=== PATIENT | female | born 1990 | race Caucasian/White ===

== ENCOUNTER 2023-07-09 19:13 | Emergency (ER) | payer BC, SELFPAY ==
[2023-07-09] VITALS (32 sets, daily range): BP systolic 117–144; BP diastolic 63–87; PULSE 53–75; RESP 6–42; TEMP 36.6; O2SAT 97–100; BMI 32.6
--- NOTE | 2023-07-09 18:30 | ECG_ITS ---
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
--- NOTE | 2023-07-09 19:35 | PC.NURSE ---
pt presents to ED because pt states that this morning she woke up with a headache which pt has a history of but she is not prescribed any medications for it. pt states that she has hx of anemia and heart palpitations. pt states that an hour [employer] she started experiencing sob, dizziness, left sided chest pain that radiates into left shoulder.
--- NOTE | 2023-07-09 19:36 | ED.CHESTPAI1 ---
HPI - Chest Pain General Chief Complaint: Chest Pain Stated Complaint: CHEST PAIN, HEADACHE Time Seen by Provider: 07/09/23 19:25 Source: patient Mode of arrival: walk-in History of Present Illness HPI narrative: presents complaining of headache. left posterior head. Similar headaches in the past. also left sided chest pain in the last hour. states comes and goes. May last 2 minutes and then resolve. No pain now. Does have past history of GERD. Use to take medication for GERD but hasn't for years. No associated dyspnea or nausea. Pain is not pleuritic. No fever or cough. No family history of heart disease. Related Data Allergies Allergy/AdvReac Type Severity Reaction Status Date / Time No Known Drug Allergies Allergy Verified 07/09/23 19:17 Review of Systems ROS Status of ROS 10 or more systems reviewed and unremarkable except as noted in history and below Exam Constitutional Vital Signs, click to edit/add: Last Vital Signs Temp 97.8 F 07/09/23 19:17 Pulse 60 07/09/23 22:40 Resp 15 07/09/23 22:40 BP 128/66 07/09/23 22:31 Pulse Ox 99 07/09/23 22:40 O2 Del Method Room Air 07/09/23 19:17 Common normals: no apparent distress, average body habitus, oriented x3, no limitations, healthy appearing, alert and well nourished Eye Common normals: PERRL, EOMs intact bilaterally and conjunctivae normal Respiratory Common normals: normal respiratory effort, no retractions, no use of accessory muscles and clear to auscultation bilaterally Cardio Common normals: no JVD, regular rate, regular rhythm, S1 normal heart sound and S2 normal heart sound GI Common normals: Normal to inspection, nondistended, normoactive bowel sounds present, soft to palpation and non-tender Extremity Common normals: normal to inspection and full ROM Neuro Common normals: oriented x3, CN's II-XII intact bilaterally, moves all extremities, no focal motor deficits and no sensory deficits noted Psych Appearance: grossly normal Course Vital Signs Vital signs: Vital Signs Temperature 97.8 F 07/09/23 19:17 Pulse Rate 67 07/09/23 19:17 Respiratory Rate 20 07/09/23 19:17 Blood Pressure 131/87 07/09/23 19:17 Pulse Oximetry 100 07/09/23 19:17 Oxygen Delivery Method Room Air 07/09/23 19:17 Temperature 97.8 F 07/09/23 19:17 Pulse Rate 60 07/09/23 22:40 Respiratory Rate 15 07/09/23 22:40 Blood Pressure 128/66 07/09/23 22:31 Pulse Oximetry 99 07/09/23 22:40 Oxygen Delivery Method Room Air 07/09/23 19:17 MDM - Chest Pain MDM Narrative Medical decision making narrative: patient presents complaining of chest pain. Also past history of GERD that she was no longer treatment. Given GI cocktail and this relieved her pain and it did not return. Before the GI cocktail the pain would come and go and last about 2 minutes. She was then given Prilosec. Serial troponins neg, d-dimer neg. Cxray normal. Patient discharged home asymptomatic and prescribed Prilosec and advised to follow up with her doctor Lab Data Labs: Lab Results 07/09/23 07/09/23 Range/Units 19:30 22:58 WBC 5.9 (4.0-11.0) 10^3/uL RBC 4.79 (4.20-5.40) 10^6/uL Hgb 13.7 (12.0-16.0) g/dL Hct 41.8 (36.0-48.0) % MCV 87.3 (81.0-99.0) fL MCH 28.6 (26.7-34.0) pg MCHC 32.8 (29.9-35.2) g/dL RDW 11.5 (11.0-15.0) % Plt Count 291 (150-450) 10^3/uL MPV 9.5 (9.5-13.5) fL Neut % (Auto) 47.6 (43.0-75.0) % Lymph % (Auto) 41.9 (20.5-60.0) % [place] % (Auto) 7.5 (1.7-12.0) % Eos % (Auto) 2.0 (0.9-7.0) % Baso % (Auto) 0.7 (0.2-2.0) % Neut # (Auto) 2.8 (1.4-6.5) 10^3/uL Lymph # (Auto) 2.5 (1.2-3.8) 10^3/uL [place] # (Auto) 0.4 (0.3-0.8) 10^3/uL Eos # (Auto) 0.1 (0.0-0.7) 10^3/uL Baso # (Auto) 0.0 (0.0-0.1) 10^3/uL Abs Immat Gran (auto) 0.02 (0.00-0.03) 10^3/uL Imm/Tot Granulo (auto) 0.3 (0.0-0.5) % D-Dimer 0.23 (<=0.59) mg/L FEU Sodium 137 (136-145) mmol/L Potassium 3.4 L (3.5-5.1) mmol/L Chloride 102 (98-107) mmol/L Carbon Dioxide 24.7 (21.0-32.0) mmol/L Anion Gap 13.7 BUN 7.0 (7.0-18.0) mg/dL Creatinine 0.79 (0.55-1.02) mg/dL Est GFR ( Amer) >60 (>=60) Est GFR (Non-Af Amer) >60 (>=60) BUN/Creatinine Ratio 8.9 Glucose 92 (74-106) mg/dL Calcium 9.0 (8.5-10.1) mg/dL Troponin I High Sens 10.6 9.3 (4.0-51.3) pg/mL Discharge Plan Discharge Chief Complaint: Chest Pain Clinical Impression: Chest pain due to GERD, Atypical chest pain Instructions: GERD (Gastroesophageal Reflux Disease) (ED), Noncardiac Chest Pain (ED) Additional Instructions: follow up with Dr Ellis later this week for recheck Stand Alone Forms: Portal Instructions Referrals: Dav Ellis MD [Primary Care Provider] - 1 week
--- NOTE | 2023-07-09 19:39 | XR_ITS ---
The [address] [address] Patient Name: YUKI LITTLE MRN: [id number] date: 1990 Sex: F Assigned Patient Location: ER Current Patient Location: ER Accession/Order Number: [id number] Exam Date: 07/09/2023 19:48 Report Date: 07/09/2023 20:00 At the request of: SHARRI MADRIGAL Procedure: XR chest 1V EXAM: XR chest 1V at 1918 hours HISTORY: chest pain COMPARISON: 10/08/2022 TECHNIQUE: AP upright portable chest x-ray FINDINGS: The heart is not enlarged and the vasculature is not distended. No acute infiltrate, effusion or pneumothorax is identified. The osseous structures are grossly intact. XR/XR chest 1V IMPRESSION: No acute infiltrate or evidence of cardiac decompensation. The overall appearance of the chest is essentially unchanged. Electronically authenticated by: MATTY ZEPEDA Date: 07/09/2023 20:00
[2023-07-09] MEDS: ACETAMINOPHEN 500 MG TABLET 1000 MG PO (19:51)
[2023-07-09] MEDS: lidocaine HCL 15 ML, MAG HYDROX/ALUMINUM HYD/SIMETH 30 ML, HYOSCYAMINE SULFATE 0.25 MG PO (19:52)
[2023-07-09 20:26] LABS: D Dimer 0.23 mg/L FEU (<=0.59)
[2023-07-09 20:33] LABS: Anion Gap 13.7; BUN Creatinine Ratio 8.9; Carbon Dioxide 24.7 mmol/L (21.0-32.0); Chloride 102 mmol/L (98-107); Estimated GFR (African America >60 (>=60); Estimated GFR (Non-African Ame >60 (>=60); Glucose 92 mg/dL (74-106); Potassium 3.4 mmol/L (3.5-5.1); Sodium 137 mmol/L (136-145); Troponin I High Sensitivity 10.6 pg/mL (4.0-51.3)
[2023-07-09 20:34] LABS: Basophils Percent Auto 0.7 % (0.2-2.0); Eosinophils Absolute Auto 0.1 10^3/uL (0.0-0.7); Hematocrit 41.8 % (36.0-48.0); Hemoglobin 13.7 g/dL (12.0-16.0); Immature Granulocytes Abs Auto 0.02 10^3/uL (0.00-0.03); Immature Granulocytes Pct Auto 0.3 % (0.0-0.5); Lymphocytes Absolute Auto 2.5 10^3/uL (1.2-3.8); Lymphocytes Percent Auto 41.9 % (20.5-60.0); Mean Corpuscular HGB Conc 32.8 g/dL (29.9-35.2); Mean Corpuscular Hemoglobin 28.6 pg (26.7-34.0); Mean Corpuscular Volume 87.3 fL (81.0-99.0); Mean Platelet Volume 9.5 fL (9.5-13.5); Monocytes Absolute Auto 0.4 10^3/uL (0.3-0.8); Monocytes Percent Auto 7.5 % (1.7-12.0); Neutrophils Absolute Auto 2.8 10^3/uL (1.4-6.5); Neutrophils Percent Auto 47.6 % (43.0-75.0); Platelet Count 291 10^3/uL (150-450); Red Blood Count 4.79 10^6/uL (4.20-5.40); Red Cell Distribution Width 11.5 % (11.0-15.0); White Blood Count 5.9 10^3/uL (4.0-11.0)
[2023-07-09] MEDS: OMEPRAZOLE 40 MG CAPSULE.DR PO (23:25)
[2023-07-09 23:32] LABS: Troponin I High Sensitivity 9.3 pg/mL (4.0-51.3)
[2023-07-10] VITALS: BP 138/78; PULSE 75; RESP 18; O2SAT 99
[2023-07-10 00:10] VITALS: PULSE 64; RESP 16; O2SAT 99
== END 2023-07-10 00:21 | disposition home or self-care (01) ==
PROVIDERS: Emergency Provider Internal Medicine; PCP Family Medicine
DX: K21.9 Gastro-esophageal reflux disease without esophagitis (principal); R07.89 Other chest pain
CPT/HCPCS: 36415; 71045; 80048; 84484; 85025; 85378; 93005; 99285

== ENCOUNTER 2023-10-07 07:56 | Outpatient (OUT) | payer BC, SELFPAY ==
--- NOTE | 2023-10-07 07:59 | US_ITS ---
The [address] [address] Patient Name: YUKI LITTLE MRN: [id number] date: 1990 Sex: F Assigned Patient Location: US Current Patient Location: US Accession/Order Number: [id number] Exam Date: 10/07/2023 08:00 Report Date: 10/07/2023 08:58 At the request of: HERB ANDRADE Procedure: US right upper quadrant EXAM: US right upper quadrant HISTORY: . Right Upper Quadrant Pain . COMPARISON: None. TECHNIQUE: Durham scale and color imaging was performed FINDINGS: The pancreas appears normal. The liver is normal in size. No masses or biliary dilatation is noted. Color-flow is noted in the portal and hepatic veins. Common bile duct is normal measuring 3 mm. Right kidney measures 10.1 x 5 x 4.8 cm. No solid renal cortical masses or hydronephrosis was noted. Color-flow is noted. Small echogenic foci are noted within the gallbladder with shadowing consistent with small subcentimeter gallstones. No gallbladder wall thickening is noted. Patient had no pain upon scanning over the gallbladder. No fluid was noted in the right upper quadrant. US/US right upper quadrant IMPRESSION: 1. Cholelithiasis. No gallbladder wall thickening. Patient had no pain upon scanning over the gallbladder. 2. The remainder the right upper quadrant was unremarkable. Electronically authenticated by: JUD LONG Date: 10/07/2023 08:58
== END 2023-10-07 07:57 | disposition home or self-care (01) ==
LOC: US 07:56
PROVIDERS: PCP Family Medicine; Visit Provider Family Medicine
DX: R10.11 Right upper quadrant pain (principal); K80.20 Calculus of gallbladder without cholecystitis without obstruction
CPT/HCPCS: 76705

== ENCOUNTER 2023-10-23 09:28 | Outpatient (OUT) | payer BC, SELFPAY ==
--- OUTSIDE RECORDS SUMMARY | 2023-10-23 09:51 | XMS_ITS | CCD ---
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 Name Role Phone Lisandra Parada Unavailable Caterina Vargas Unavailable Astrid Hooks Unavailable SETHY ., DR ESTEVEZ Admitting Unavailable HOY ., DR ESTEVEZ Attending Unavailable HOY ., DR ESTEVEZ Consulting Unavailable HOY ., DR ESTEVEZ Primary Care Unavailable HOY ., DR ESTEVEZ Primary Care Unavailable HOY ., DR ESTEVEZ Attending Unavailable HOY ., DR ESTEVEZ Admitting Unavailable HOY ., DR ESTEVEZ Consulting Unavailable Chauncey Simons Consulting Unavailable HOY ., DR ESTEVEZ Primary Care Unavailable HOY ., DR ESTEVEZ Attending Unavailable HOY ., DR ESTEVZE Admitting Unavailable HOY ., DR ESTEVEZ Consulting Unavailable HOY ., DR ESTEVEZ Primary Care Unavailable HOY ., DR ESTEVEZ Admsang Unavailable HOY ., DR ESTEVEZ Attending Unavailable HOY ., DR ESTEVEZ Consulting Unavailable HOY ., DR ESTEVEZ Consulting Unavailable HOY ., DR ESTEVEZ Admitting Unavailable HOY ., DR ESTEVEZ Attending Unavailable HOY ., DR ESTEVEZ Primary Care Unavailable Chauncey Simons Consulting Unavailable GRECHNY .FRED Consulting Unavailabl e PAY ., DR BOUCHER Admitting Unavailable PAY ., DR BOUCHER Attending Unavailable HOY ., DR ESTEVEZ Primary Care Unavailable MARITZA GORE Consulting Unavailable HOY ., DR ESTEVEZ Admitting Unavailable HOY ., DR ESTEVEZ Attending Unavailable HOY ., DR ESTEVEZ Primary Care Unavailable HOY ., DR ESTEVEZ Admitting Unavailable HOY ., DR ESTEVEZ Attending Unavailable HOY ., DR ESTEVEZ Consulting Unavailable HOY ., DR ESTEVEZ Primary Care Unavailable Smiley Harrell Unavailable Herb Ellis Primary Care Physician [phone] Slade BUSTAMANTE Attending Unavailable Herb Ellis Referring Unavailable Allergies Allergy Classification Reported Allergen(s) Allergy Type Date of Onset Reaction(s) Facility (1 source) Iodine (And Iodine Containting Drugs) Drug allergy (disorder) 6 [facility] Repository (1 source) Contrast media Propensity to adverse reactions to substance Weal (disorder) [facility] [place] (1 source) No Known Medication Allergies; Translations: [No Known Medication Allergies] Propensity to adverse reactions (disorder) [facility] Repository NEGATED: Highlighted row has been ruled out! (1 source) Drug allergy [facility] [place] Medications Current Medications Medication Drug Class(es) Dates Sig (Normalized) Sig (Original) [id number] 200 actuat albuterol 0.09 mg/actuat metered dose inhaler (1 source) beta2-Adrenergic Agonist Start: 10-01-2021 take 2 puff(s) by inhalation four times daily as needed Albuterol Sulfate HFA 108 (90 Base) MCG/ACT 2 puffs Inhalation qid prn Sep, Active azithromycin 250 mg oral tablet (1 source) Macrolide Antimicrobial Start: 10-01-2021 Zithromax 250 MG 2 tablet on the first day, then 1 tablet daily for 4 days Orally Once a day for 5 day(s) Sep, Active dextromethorphan hydrobromide 15 mg / guaiFENesin 400 mg / pseudoephedrine hydrochloride 60 mg oral tablet (1 source) alpha-Adrenergic Agonist, Uncompetitive Z-vmsrkh-S-aspart[place] te Receptor Antagonist, Sigma-1 Agonist Start: 08-26-2023 Capmist DM 60-15-400 MG 1 tablet at 4 hour intervals as needed Orally Four times a day for 3 days Aug, Active omeprazole 40 mg delayed release oral capsule (1 source) Proton Pump Inhibitor Omeprazole 40 MG Oral for 15 Days Active ondansetron 4 mg oral tablet (1 source) Serotonin-3 Receptor Antagonist Start: 10-16-2023 take 1 tablet by mouth every eight hours ondansetron 4 mg Tab 4 mg = 1 tab(s), Oral, q8hr, Refills(s) 0 Start Date: 10/16/23 Status: Ordered predniSONE 20 mg oral tablet (1 source) Start: 10-01-2021 take 1 tablet by mouth every twelve hours predniSONE 20 MG 1 tablet Orally bid for 5 day(s) Sep, Active rimegepant 75 mg disintegrating oral tablet (1 source) Start: 10-02-2023 take 1 tablet under the tongue once Nurtec ODT 75 mg oral tablet, disintegrating 75 mg = 1 tab(s), SubLingual, Once, Refills(s) 0 Start Date: 10/02/23 Status: Ordered Completed/Discontinued Medications Medication Drug Class(es) Dates Sig (Normalized) Sig (Original) ferrous sulfate 325 mg oral tablet (1 source) take 1 tablet by mouth once daily FeroSul 325 (65 Fe) MG take 1 tablet by mouth once daily Oral for 30 Days Not-Taking nitrofurantoin, macrocrystals 25 mg / nitrofurantoin, monohydrate 75 mg oral capsule (4 sources) Nitrofuran Antibacterial Start: 06-25-2021 take 1 capsule by mouth every twelve hours Macrobid 100 MG 1 cap(s) orally bid for 7 days Jun, Not-Taking pantoprazole (3 sources) Proton Pump Inhibitor Pantoprazole Sodium Not-Taking Pantoprazole Sod ium Active Problems Active Problems Problem Classification Problem Date Documented Da te Episodic/Chronic Abdominal pain (3 sources) Epigastric pain; Translations: [Epigastric pain] Onset: 3 Episodic Cardiac dysrhythmias (1 source) Paroxysmal supraventricular tachycardia 10-02-2023 Chronic Deficiency and other anemia (4 sources) Iron deficiency anemia, unspecified; Translations: [IRON DEFICIENCY ANEMIA UNSPECIFIED] Onset: 3 Episodic Deficiency and other anemia (1 source) Iron deficiency anemia 10-02-2023 Episodic Esophageal disorders (2 sources) Gastroesophageal reflux disease without esophagitis; Translations: [Gastro-esophageal reflux disease without esophagitis] Onset: 3 Chronic Malaise and fatigue (1 source) Other fatigue; Translations: [OTHER FATIGUE] Onset: 3 Episodic Other gastrointestinal disorders (2 sources) Dysphagia; Translations: [Dysphagia, unspecified] Onset: 3 Episodic Other nutritional; endocrine; and metabolic disorders (1 source) Body mass index 30+ - obesity 10-16-2023 Chronic Other nutritional; endocrine; and metabolic disorders (1 source) Obesity 10-16-2023 Chronic Other screening for suspected conditions (not mental disorders or infectious disease) (5 sources) Other specified abnormal findings of blood chemistry; Translations: [OTH SPEC ABNORMAL FINDINGS BLD CHEM] Onset: 2 Episodic Other upper respiratory infections (1 source) Acute upper respiratory infection, unspecified Episodic Past or Other Problems Problem Classification Problem Date Documented Da te Episodic/Chronic Cardiac dysrhythmias (4 sources) Palpitations; Translations: [PALPITATIONS] Onset: 10-08-2022 Episodic Immunizations and screening for infectious disease (2 sources) Contact with and (suspected) exposure to other viral communicable diseases Onset: 10-01-2021 Resolved: 11-12-2021 Episodic Nausea and vomiting (1 source) Nausea; Translations: [NAUSEA] Onset: 10-10-2022 Episodic Screening and history of mental health and substance abuse codes (1 source) Personal history of nicotine dependence; Translations: [PERSONAL HISTORY OF NICOTINE DEPEND] Onset: 10-10-2022 Episodic Unclassified (1 source) Contact with and (suspected) exposure to covid-19 Z20.822 Viral infection (1 source) COVID-19 Onset: 10-01-2021 Resolved: 10-01-2021 Results Test Name Value Interpretation Reference Range Facil ity Consent for Procedure/Surger yon 10-18-2023 Consent for Procedure/Surgery [id number] Normal [facility] Ambulatory Visit Summaryon 1 12-17-2022 Ambulatory Visit Summary SIDNEY YUKI D :1990 Visit Date:10/16/2023 Ambulatory Visit Instructions Your Care Team Attending Physician - Slade BUSTAMANTE MD Primary Care Physician - Herb Ellis MD Referring Physician - Herb Ellis MD This Is Your Medications List Contact prescribing physician if questions or concerns ondansetron (ondansetron 4 mg Tab) rimegepant (Nurtec ODT 75 mg oral tablet, disintegrating) Procedures Performed Tubal ligation. Discharge Vitals Heart Rate (Peripheral) 72 Respiratory Rate 15 Blood Pressure 122/78 Height 172.5 cm Height 68 in Weight 103 kg Weight 226.6 lb BMI 34.61 Medications What How Much When Instructions Unchanged ondansetron (ondansetron 4 mg Tab) 1 Tablets By Mouth Every 8 hours Contact prescribing physician if questions or concerns Unchanged rimegepant (Nurtec ODT 75 mg oral tablet, disintegrating) 1 Tablets Sublingual Once Contact prescribing physician if questions or concerns Medications and Immunizations Administered Not Given influenza virus vaccine, inactivated, Patient Refuses Allergies Contrast Dye (Hives) No Known Medication Allergies Problems Ongoing - Any problem that you are currently receiving treatment for. BMI 34.0-34.9,adult Dysphagia Gastroesophageal reflux disease Iron deficiency anemia Obesity Paroxysmal supraventricular tachycardia RUQ pain Patient Survey You may receive a survey via text or e-mail asking about your office visit. Please share your experience with us by completing your survey. We appreciate your feedback and thank you for choosing us for your care. Normal [facility] Facesheeton 10-16-2023 Facesheet [id number] IFF Normal [facility] RAD - Ultrasound Reporton RAD - Ultrasound Report [id number] Normal [facility] Physician Referralon 023 Physician Referral [id number] Normal [facility] COVID + FLU Quick Testingon 08-26-2023 SARS-CoV-2 (COVID-19) RNA NA A+probe Ql (Unsp spec) Negative [facility] Other COVID + FLU Quick Testing Negative [facility] Other US SINGLE QUAD RT UPPERon US SINGLE QUAD RT UPPER EXAMINATION: US SINGLE QUAD RT UPPER HISTORY: Blood chemistry abnormal COMPARISON: No relevant comparison available. TECHNIQUE: Transabdominal evaluation of the right upper quadrant. FINDINGS: LIVER: Normal size and echotexture. Color Doppler demonstrates patent hepatic veins. PORTAL VEIN: Duplex Doppler demonstrates normal hepatopetal flow pattern with flow velocity averaging 21 cm/s. GALLBLADDER: Small amount of sludge, likely from biliary stasis. No visible gallstones, wall thickening, or pericholecystic free fluid. BILIARY: No abnormal dilation or stones. Common bile duct diameter is within normal limits. PANCREASE: No visible mass, abnormal atrophy, or duct dilation. KIDNEY: No hydronephrosis. No visible mass or stones. Size: 9.7 x 3.4 x 5.5 cm IMPRESSION: 1. Normal ultrasound appearance of the liver. Electronically authenticated by: CHAUNCEY SIMONS Date: 2023-03-19 09:[address] [facility] l PROF 14(COMP METB)on 023 Albumin [Mass/Vol] 3.7 g/dL Normal 3.4-5.0 [facility] Comment on above: Performed By: #### D DIM #### [facility] [address] [place] [address] Dr. Belgica Llanes Albumin/Globulin [Mass ratio] 0.9 {ratio} Normal [facility] Comment on above: Performed By: #### D DIM #### [facility] [address] [place] [address] Dr. Belgica Llanes ALP [Catalytic activity/Vol] 83 U/L Normal 46-116 [facility] Comment on above: Performed By: #### D DIM #### [facility] [address] [place] [address] Dr. Belgica Llanes ALT [Catalytic activity/Vol] 25 U/L Normal 14-59 [facility] Comment on above: Performed By: #### D DIM #### [facility] [address] [place] [address] Dr. Belgica Llanes Anion gap [Moles/Vol] 15.1 mmol/L Normal [facility] Comment on above: Performed By: #### D DIM #### [facility] [address] [address] [address] Belgica Llanes AST [Catalytic activity/Vol] 17 U/L Normal 15-37 [facility] Comment on above: Performed By: #### D DIM #### [facility] [address] [place] [address] Dr. Belgica Llanes Bilirubin [Mass/Vol] 0.3 mg/dL Normal 0.2-1.0 [facility] Comment on above: Performed By: #### D DIM #### [facility] [address] [address] [address] Belgica Llanes Calcium [Mass/Vol] 9.0 mg/dL Normal 8.5-10.1 [facility] Comment on above: Performed By: #### D DIM #### [facility] [address] [address] [address] Belgica Llanes Chloride [Moles/Vol] 106 mmol/L Normal 98-107 [facility] Comment on above: Performed By: #### D DIM #### [facility] [address] [address] [address] Belgica Llanes CO2 [Moles/Vol] 26.2 mmol/L Normal 21.0-32.0 [facility] Comment on above: Performed By: #### D DIM #### [facility] [address] [place] [address] Dr. Belgica Llanes Creatinine [Mass/Vol] 0.77 mg/dL Normal 0.55-1.02 [facility] Comment on above: Performed By: #### D DIM #### [facility] [address] [place] [address] Dr. Belgica Llanes EGFR-AF BHUTANESE >60 Normal >=60 [facility] Comment on above: Performed By: #### D DIM #### [facility] [address] [place] [address] Dr. Belgica Llanes EGFR-NON AF BHUTANESE >60 Normal >=60 [facility] Comment on above: Performed By: #### D DIM #### [facility] [address] [address] [address] Belgica Llanes Globulin (S) [Mass/Vol] 4.0 g/dL Normal T [facility] Comment on above: Performed By: #### D DIM #### [facility] [address] [address] [address] Belgica Llanes Glucose [Mass/Vol] 97 mg/dL Normal 74-106 [facility] Comment on above: Performed By: #### D DIM #### [facility] [address] [address] [address] Belgica Llanes Potassium [Moles/Vol] 4.3 mmol/L Normal 3.5-5.1 [facility] Comment on above: Performed By: #### D DIM #### [facility] [address] [address] [address] Belgica Llanes Protein [Mass/Vol] 7.7 g/dL Normal 6.4-8.2 [facility] Comment on above: Performed By: #### D DIM #### [facility] [address] [place] [address] Dr. Belgica Llanes Sodium [Moles/Vol] 143 mmol/L Normal 136-145 [facility] Comment on above: Performed By: #### D DIM #### [facility] [address] [place] [address] Dr. Belgica Llanes Urea nitrogen [Mass/Vol] 10.0 mg/dL Normal 7.0-18.0 [facility] Comment on above: Performed By: #### D DIM #### [facility] [address] [place] [address] Dr. Belgica Llanes Urea nitrogen/Creatinine [Mass ratio] 13.0 mg/mg Normal [facility] Comment on above: Performed By: #### D DIM #### [facility] [address] [place] [address] Dr. Belgica Llanes CBC AUTO DIFFon 02-25-2023 BASO # 0.0 103/ul Normal 0.0-0.1 [facility] Comment on above: Performed By: #### C BC #### [facility] [address] [place] [address] Dr. Belgica Llanes Basophils/100 WBC (Bld) 0.5 % Normal 0.2-2.0 [facility] Comment on above: Performed By: #### C BC #### [facility] [address] [place] [address] Dr. Belgica Llanes EO # 0.1 103/ul Normal 0.0-0.7 [facility] Comment on above: Performed By: #### C BC #### [facility] [address] [place] [address] Dr. Belgica Llanes Eosinophils/100 WBC (Bld) 2.0 % Normal 0.9-7.0 [facility] Comment on above: Performed By: #### C BC #### [facility] [address] [place] [address] Dr. Belgica Llanes Erythrocyte distribution wid th (RBC) [Ratio] 12.4 % Normal 11.0-15.0 [facility] Comment on above: Performed By: #### C BC #### [facility] [address] [place] [address] Dr. Belgica Llanes Hematocrit (Bld) [Volume fraction] 42.3 % Normal 3 6.0-48.0 [facility] Comment on above: Performed By: #### C BC #### [facility] [address] [place] [address] Dr. Belgica Llanes Hemoglobin (Bld) [Mass/Vol] 13.7 g/dL Normal 12.0-16. 0 [facility] Comment on above: Performed By: #### C BC #### [facility] [address] [place] [address] Dr. Belgica Llanes IG # 0.01 10e3/ul Normal 0.00-0.03 [facility] Comment on above: Performed By: #### C BC #### [facility] [address] [place] [address] Dr. Belgica Llanes IG % 0.2 % Normal 0.0-0.5 [facility] Comment on above: Performed By: #### C BC #### [facility] [address] [place] [address] Dr. Belgica Llanes LYMPH # 2.2 103/ul Normal 1.2-3.8 [facility] Comment on above: Performed By: #### C BC #### [facility] [address] [place] [address] Dr. Belgica Llanes Lymphocytes/100 WBC (Bld) 37.1 % Normal 20.5-60.0 [facility] Comment on above: Performed By: #### C BC #### [facility] [address] [place] [address] Dr. Belgica Llanes MANUAL DIFF REQ NO Normal [facility] Comment on above: Performed By: #### C BC #### [facility] [address] [place] [address] Dr. Belgica Llanes MCH (RBC) [Entitic mass] 28.3 pg Normal 26.7-34.0 [facility] Comment on above: Performed By: #### C BC #### [facility] [address] [place] [address] Dr. Belgica Llanes MCHC (RBC) [Mass/Vol] 32.4 g/dL Normal 29.9-35.2 [facility] Comment on above: Performed By: #### C BC #### [facility] [address] [place] [address] Dr. Belgica Llanes MCV (RBC) [Entitic vol] 87.4 fL Normal 81.0-99.0 [facility] Comment on above: Performed By: #### C BC #### [facility] [address] [place] [address] Dr. Belgica Llanes MONO # 0.5 103/ul Normal 0.3-0.8 [facility] Comment on above: Performed By: #### C BC #### [facility] [address] [place] [address] Dr. Belgica Llanes Monocytes/100 WBC (Bld) 8.3 % Normal 1.7-12.0 [facility] Comment on above: Performed By: #### C BC #### [facility] [address] [place] [address] Dr. Belgica Llanes NEUT # 3.1 103/ul Normal 1.4-6.5 [facility] Comment on above: Performed By: #### C BC #### [facility] [address] [place] [address] Dr. Belgica Llanes Neutrophils/100 WBC (Bld) 51.9 % Normal 43.0-75.0 [facility] Comment on above: Performed By: #### C BC #### [facility] [address] [address] [address] Belgica Llanes Platelet mean volume (Bld) [Entitic vol] 8.6 fL Critically low 9.5-13.5 [facility] Comment on above: Performed By: #### C BC #### [facility] [address] [place] [address] Dr. Belgica Llanes PLT 313 103/ul Normal 150-450 [facility] Comment on above: Performed By: #### C BC #### [facility] [address] [place] [address] Dr. Belgica Llanes RBC 4.84 106/ul Normal 4.20-5.40 [facility] Comment on above: Performed By: #### C BC #### [facility] [address] [place] [address] Dr. Belgica Llanes WBC 6.0 103/ul Normal 4.0-11.0 [facility] Comment on above: Performed By: #### C BC #### [facility] [address] [place] [address] Dr. Belgica Llanes FERRITINon 02-25-2023 Ferritin [Mass/Vol] 400.0 ng/mL Critically high 6.2-137.0 [facility] Comment on above: Performed By: #### I MARIBETH, FERR #### [facility] [address] [place] [address] Dr. Belgica Llanes IRONon 02-25-2023 Iron [Mass/Vol] 61.0 ug/dL Normal 50.0-170.0 [facility] Comment on above: Performed By: #### D DIM #### [facility] [address] [place] [address] Dr. Belgica Llanes US PELVIS AND TRANSVAGon US PELVIS AND TRANSVAG EXAMINATION: US P LAURA AND TRANSVAG HISTORY: Iron deficiency anemia COMPARISON: No relevant comparison available. TECHNIQUE: Transabdominal and transvaginal sonographic examination. FINDINGS: UTERUS: Normal size and appearance. Uterus size: 8.9 x 5.2 x 4.7 cm ENDOMETRIUM: Normal homogeneous appearance. Endometrial thickness: 13 mm RIGHT OVARY: Normal size and appearance. Duplex Doppler demonstrates normal waveform and flow; resistive index 0.6. Ovary size: 3.9 x 2.4 x 2.0 cm LEFT OVARY: Normal size and appearance. Duplex Doppler demonstrates normal waveform and flow; resistive index 0.6. Ovary size: 3.2 x 1.8 x 1.4 cm CUL-DE-SAC: Unremarkable. No significant free fluid. BLADDER: Unremarkable. OTHER: Small amount of free fluid adjacent ovaries, likely physiologic. IMPRESSION: 1. No abnormal or suspicious findings to account for patient's symptoms. Electronically authenticated by: CHAUNCEY SIMONS Date: 2022-12-26 09:[address] [facility] l CBC AUTO DIFFon 10-08-2022 BASO # 0.0 103/ul Normal 0.0-0.1 [facility] Comment on above: Performed By: #### C BC #### [facility] [address] [place] [address] Dr. Belgica Llanes Basophils/100 WBC (Bld) 0.5 % Normal 0.2-2.0 [facility] Comment on above: Performed By: #### C BC #### [facility] [address] [place] [address] Dr. Belgica Llanes EO # 0.1 103/ul Normal 0.0-0.7 [facility] Comment on above: Performed By: #### C BC #### [facility] [address] [place] [address] Dr. Belgica Llanes Eosinophils/100 WBC (Bld) 1.4 % Normal 0.9-7.0 [facility] Comment on above: Performed By: #### C BC #### [facility] [address] [place] [address] Dr. Belgica Llanes Erythrocyte distribution wid th (RBC) [Ratio] 14.0 % Normal 11.0-15.0 [facility] Comment on above: Performed By: #### C BC #### [facility] [address] [place] [address] Dr. Belgica Llanes Hematocrit (Bld) [Volume fraction] 35.7 % Critically low 36.0-48.0 [facility] Comment on above: Result Comment: Prev iously reported as: 30.8 On 10/08/2022 18:42 By [facility] Performed By: #### C BC #### [facility] [address] [place] [address] Dr. Belgica Llanes Hemoglobin (Bld) [Mass/Vol] 12.0 g/dL Normal 12.0-16. 0 [facility] Comment on above: Result Comment: Prev iously reported as: 12.1 On 10/08/2022 18:42 By [facility] Performed By: #### C BC #### [facility] [address] [place] [address] Dr. Belgica Llanes IG # 0.01 10e3/ul Normal 0.00-0.03 [facility] Comment on above: Performed By: #### C BC #### [facility] [address] [place] [address] Dr. Belgica Llanes IG % 0.2 % Normal 0.0-0.5 [facility] [facility] Comment on above: Performed By: #### C BC #### [facility] [address] [place] [address] Dr. Belgica Llanes LYMPH # 1.7 103/ul Normal 1.2-3.8 [facility] [place] [facility] Comment on above: Performed By: #### C BC #### [facility] [address] [place] [address] Dr. Belgica Llanes Lymphocytes/100 WBC (Bld) 29.6 % Normal 20.5-60.0 [facility] Comment on above: Performed By: #### C BC #### [facility] [address] [place] [address] Dr. Belgica Llanes MANUAL DIFF REQ NO Normal [facility] Comment on above: Performed By: #### C BC #### [facility] [address] [place] [address] Dr. Belgica Llanes MCH (RBC) [Entitic mass] 28.1 pg Normal 26.7-34.0 [facility] Comment on above: Result Comment: Prev iously reported as: 34.8 On 10/08/2022 18:42 By [facility] Performed By: #### C BC #### [facility] [address] [place] [address] Dr. Belgica Llanes MCHC (RBC) [Mass/Vol] 33.6 g/dL Normal 29.9-35.2 [facility] Comment on above: Result Comment: Prev iously reported as: 39.3 On 10/08/2022 18:42 By [facility] Performed By: #### C BC #### [facility] [address] [place] [address] Dr. Belgica Llanes MCV (RBC) [Entitic vol] 83.6 fL Normal 81.0-99.0 [facility] Comment on above: Result Comment: Prev iously reported as: 88.5 On 10/08/2022 18:42 By [facility] Performed By: #### C BC #### [facility] [address] [place] [address] Dr. Belgica Llanes MONO # 0.4 103/ul Normal 0.3-0.8 [facility] Comment on above: Performed By: #### C BC #### [facility] [address] [place] [address] Dr. Belgica Llanes Monocytes/100 WBC (Bld) 7.2 % Normal 1.7-12.0 [facility] Comment on above: Performed By: #### C BC #### [facility] [address] [place] [address] Dr. Belgica Llanes NEUT # 3.5 103/ul Normal 1.4-6.5 [facility] [place] [facility] Comment on above: Performed By: #### C BC #### [facility] [address] [place] [address] Dr. Belgica Llanes Neutrophils/100 WBC (Bld) 61.1 % Normal 43.0-75.0 [facility] Comment on above: Performed By: #### C BC #### [facility] [address] [place] [address] Dr. Belgica Llanes Platelet mean volume (Bld) [Entitic vol] 9.0 fL Critically low 9.5-13.5 [facility] Comment on above: Performed By: #### C BC #### [facility] [address] [place] [address] Dr. Belgica Llanes PLT 323 103/ul Normal 150-450 [facility] Comment on above: Performed By: #### C BC #### [facility] [id number] Belgica Llanes RBC 3.48 106/ul Critically low 4.20-5.40 [facility] Comment on above: Performed By: #### C BC #### [facility] [address] [place] [address] Dr. Belgica Llanes WBC 5.7 103/ul Normal 4.0-11.0 [facility] Comment on above: Performed By: #### C BC #### [facility] [address] [place] [address] Dr. Belgica Llanes D-DIMERon 10-08-2022 D-DIMER 0.21 mg/L FEU Normal <=0.59 The [facility] Comment on above: Performed By: #### D DIM #### [facility] [address] [place] [address] Dr. Belgica Llanes D-DIMER COMMENTS SEE BELOW Normal [facility] Comment on above: Result Comment: Incr eases in D-Dimer concentration observed with thromboembolic events can be variable due to localization, size, and age of the thrombus. Therefore, a thromboembolic event cannot be diagnosed with certainty on the basis of the reference range. D-Dimers may also be elevated for a variety of disorders including: advanced age, , coronary disease, cancer, liver disease, infection, inflammation, hematoma, DIC, trauma, post-surgery, diabetes, thrombolytic or anticoagulant therapy, stress, and generalized hospitalization. Performed By: #### D DIM #### [facility] [address] [place] [address] Dr. Belgica Llanes IRONon 10-08-2022 Iron [Mass/Vol] 19.0 ug/dL Critically low 50.0-170.0 [facility] Comment on above: Performed By: #### I MARIBETH #### [facility] [address] [place] [address] Dr. Belgica Llanes PREG HCG QUALon 10-08-2022 , QUAL Negative Normal NEGATIVE [facility] Comment on above: Performed By: #### D DIM #### [facility] [address] [place] [address] Dr. Belgica Llanes PROF 14(COMP METB)on 022 Albumin [Mass/Vol] 3.7 g/dL Normal 3.4-5.0 [facility] Comment on above: Performed By: #### C MP, HSTROPN, TSH #### [facility] [address] [place] [address] Dr. Belgica Llanes Albumin/Globulin [Mass ratio] 1.0 {ratio} Normal [facility] Comment on above: Performed By: #### C MP, HSTROPN, TSH #### [facility] [address] [place] [address] Dr. Belgica Llanes ALP [Catalytic activity/Vol] 87 U/L Normal 46-116 [facility] Comment on above: Performed By: #### C MP, HSTROPN, TSH #### [facility] [address] [place] [address] Dr. Belgica Llanes ALT [Catalytic activity/Vol] 9 U/L Critically low 14- 59 [facility] Comment on above: Performed By: #### C MP, HSTROPN, TSH #### [facility] [address] [place] [address] Dr. Belgica Llanes Anion gap [Moles/Vol] 10.8 mmol/L Normal [facility] Comment on above: Performed By: #### C MP, HSTROPN, TSH #### [facility] [address] [place] [address] Dr. Belgica Llanes AST [Catalytic activity/Vol] 11 U/L Critically low 15- 37 [facility] Comment on above: Performed By: #### C MP, HSTROPN, TSH #### [facility] [address] [address] [address] Belgica Llanes Bilirubin [Mass/Vol] 0.2 mg/dL Normal 0.2-1.0 [facility] Comment on above: Performed By: #### C MP, HSTROPN, TSH #### [facility] [address] [address] [address] Belgica Llanes Calcium [Mass/Vol] 8.6 mg/dL Normal 8.5-10.1 [facility] Comment on above: Performed By: #### C MP, HSTROPN, TSH #### [facility] [address] [place] [address] Dr. Belgica Llanes Chloride [Moles/Vol] 103 mmol/L Normal 98-107 [facility] Comment on above: Performed By: #### C MP, HSTROPN, TSH #### [facility] [address] [place] [address] Dr. Belgica Llanes CO2 [Moles/Vol] 26.7 mmol/L Normal 21.0-32.0 [facility] Comment on above: Performed By: #### C MP, HSTROPN, TSH #### [facility] [address] [place] [address] Dr. Belgica Llanes Creatinine [Mass/Vol] 0.85 mg/dL Normal 0.55-1.02 [facility] Comment on above: Performed By: #### C MP, HSTROPN, TSH #### [facility] [address] [place] [address] Dr. Belgica Llanes EGFR-AF BHUTANESE >60 Normal >=60 [facility] Comment on above: Performed By: #### C MP, HSTROPN, TSH #### [facility] [address] [place] [address] Dr. Belgica Llanes EGFR-NON AF BHUTANESE >60 Normal >=60 [facility] Comment on above: Performed By: #### C MP, HSTROPN, TSH #### [facility] [address] [place] [address] Dr. Belgica Llanes Globulin (S) [Mass/Vol] 3.8 g/dL Normal [facility] Comment on above: Performed By: #### C MP, HSTROPN, TSH #### [facility] [address] [address] [address] Belgica Llanes Glucose [Mass/Vol] 97 mg/dL Normal 74-106 [facility] Comment on above: Performed By: #### C MP, HSTROPN, TSH #### [facility] [address] [address] [address] Belgica Llanes Potassium [Moles/Vol] 3.5 mmol/L Normal 3.5-5.1 [facility] Comment on above: Performed By: #### C MP, HSTROPN, TSH #### [facility] [address] [place] [address] Dr. Belgica Llanes Protein [Mass/Vol] 7.5 g/dL Normal 6.4-8.2 [facility] Comment on above: Performed By: #### C MP, HSTROPN, TSH #### [facility] [address] [place] [address] Dr. Belgica Llanes Sodium [Moles/Vol] 137 mmol/L Normal 136-145 [facility] Comment on above: Performed By: #### C MP, HSTROPN, TSH #### [facility] [address] [place] [address] Dr. Belgica Llanes Urea nitrogen [Mass/Vol] 9.0 mg/dL Normal 7.0-18.0 [facility] Comment on above: Performed By: #### C MP, HSTROPN, TSH #### [facility] [address] [place] [address] Dr. Belgica Llanes Urea nitrogen/Creatinine [Mass ratio] 10.6 mg/mg Normal [facility] Comment on above: Performed By: #### C MP, HSTROPN, TSH #### [facility] [address] [place] [address] Dr. Belgica Llanes TROPONIN, HIGH SENSITIVITYon 10-08-2022 HSTROP 7.5 pg/mL Normal 4.0-51.3 [facility] Comment on above: Result Comment: CUT- OFF POINTS HAVE BEEN ESTABLISHED BASED ON THE FOURTH UNIVERSAL DEFINITIONS OF MYOCARDIAL INFARCTION. THE UPPER REFERENCE LIMIT (URL) OF TROPONIN, DEFINED THE 99TH PERCENTILE OF cTnI DISTRIBUTION IN A REFERENCE POPULATION, HAS BEEN CONFIRMED THE DECISION THRESHOLD FOR [place] DIAGNOSIS. Performed By: #### C MP, HSTROPN, TSH #### [facility] [address] [address] [address] Belgica Llanes TSHon 10-08-2022 TSH 1.228 uIU/mL Normal 0.358-3.740 [facility] Comment on above: Performed By: #### C MP, HSTROPN, TSH #### [facility] [id number] Belgica Llanes XR CHEST 1 Von 10-08-2022 XR CHEST 1 V EXAM: XR CHEST 1 V, 10/08/2022 HISTORY: SHORTNESS OF BREATH COMPARISON: Previous x-ray from 12/01/2021 and 10/05/2021 TECHNIQUE: Portable AP upright x-ray of the chest. FINDINGS: Heart size within normal limits. No hilar or mediastinal enlargement. The lungs and costophrenic angles are clear. No acute osseous findings. No significant interval change. IMPRESSION: No acute cardiopulmonary findings. Electronically authenticated by: MARITZA GORE Date: 2022-10-08 19:41 Normal [facility] COVID Quick Testingon 2021 Result Negative [facility] [employer] Other INSULINon 06-01-2022 Insulin 13.1 uIU/mL Normal 2.6-24.9 [facility] Comment on above: Performed By: #### D DIM #### [facility] [address] [place] [address] Dr. Belgica Llanes CBC AUTO DIFFon 05-31-2022 BASO # 0.0 103/ul Normal 0.0-0.1 [facility] Comment on above: Performed By: #### C BC #### [facility] [address] [address] [address] Belgica Llanes Basophils/100 WBC (Bld) 0.6 % Normal 0.2-2.0 [facility] Comment on above: Performed By: #### C BC #### [facility] [address] [place] [address] Dr. Belgica Llanes EO # 0.1 103/ul Normal 0.0-0.7 [facility] Comment on above: Performed By: #### C BC #### [facility] [address] [place] [address] Dr. Belgica Llanes Eosinophils/100 WBC (Bld) 2.7 % Normal 0.9-7.0 [facility] Comment on above: Performed By: #### C BC #### [facility] [address] [place] [address] Dr. Belgica Llanes Erythrocyte distribution wid th (RBC) [Ratio] 14.1 % Normal 11.0-15.0 [facility] Comment on above: Performed By: #### C BC #### [facility] [address] [place] [address] Dr. Belgica Llanes Hematocrit (Bld) [Volume fraction] 33.7 % Critically low 36.0-48.0 [facility] Comment on above: Performed By: #### C BC #### [facility] [address] [place] [address] Dr. Belgica Llanes Hemoglobin (Bld) [Mass/Vol] 12.4 g/dL Normal 12.0-16. 0 [facility] Comment on above: Performed By: #### C BC #### [facility] [address] [place] [address] Dr. Belgica Llanes IG # 0.01 10e3/ul Normal 0.00-0.03 [facility] Comment on above: Performed By: #### C BC #### [facility] [address] [place] [address] Dr. Belgica Llanes IG % 0.3 % Normal 0.0-0.5 [facility] Comment on above: Performed By: #### C BC #### [facility] [address] [place] [address] Dr. Belgica Llanes LYMPH # 1.3 103/ul Normal 1.2-3.8 [facility] Comment on above: Performed By: #### C BC #### [facility] [address] [place] [address] Dr. Belgica Llanes Lymphocytes/100 WBC (Bld) 37.8 % Normal 20.5-60.0 [facility] Comment on above: Performed By: #### C BC #### [facility] [address] [place] [address] Dr. Belgica Llanes MANUAL DIFF REQ NO Normal [facility] Comment on above: Performed By: #### C BC #### [facility] [address] [place] [address] Dr. Belgica Llanes MCH (RBC) [Entitic mass] 32.6 pg Normal 26.7-34.0 [facility] Comment on above: Performed By: #### C BC #### [facility] [address] [place] [address] Dr. Belgica Llanes MCHC (RBC) [Mass/Vol] 36.8 g/dL Critically high 29.9-35.2 [facility] Comment on above: Performed By: #### C BC #### [facility] [address] [place] [address] Dr. Belgica Llanes MCV (RBC) [Entitic vol] 88.7 fL Normal 81.0-99.0 [facility] Comment on above: Performed By: #### C BC #### [facility] [address] [place] [address] Dr. Belgica Llanes MONO # 0.2 103/ul Critically low 0.3-0.8 [facility] Comment on above: Performed By: #### C BC #### [facility] [address] [place] [address] Dr. Belgica Llanes Monocytes/100 WBC (Bld) 6.3 % Normal 1.7-12.0 [facility] Comment on above: Performed By: #### C BC #### [facility] [address] [place] [address] Dr. Belgica Llanes NEUT # 1.7 103/ul Normal 1.4-6.5 [facility] Comment on above: Performed By: #### C BC #### [facility] [address] [place] [address] Dr. Belgica Llanes Neutrophils/100 WBC (Bld) 52.3 % Normal 43.0-75.0 [facility] Comment on above: Performed By: #### C BC #### [facility] [address] [address] [address] Belgica Llanes Platelet mean volume (Bld) [Entitic vol] 9.1 fL Critically low 9.5-13.5 [facility] Comment on above: Performed By: #### C BC #### [facility] [address] [place] [address] Dr. Belgica Llanes PLT 272 103/ul Normal 150-450 [facility] Comment on above: Performed By: #### C BC #### [facility] [address] [place] [address] Dr. Belgica Llanes RBC 3.80 106/ul Critically low 4.20-5.40 [facility] Comment on above: Performed By: #### C BC #### [facility] [address] [place] [address] Dr. Belgica Llanes WBC 3.3 103/ul Critically low 4.0-11.0 [facility] Comment on above: Performed By: #### C BC #### [facility] [address] [place] [address] Dr. Belgica Llanes FREE THYROXINE INDEX T7on FTI 2.35 Normal 1.30-4.50 [facility] Comment on above: Performed By: #### D DIM #### [facility] [address] [place] [address] Dr. Belgica Llanes T3U 35.0 % Normal 30.0-39.0 [facility] Comment on above: Performed By: #### D DIM #### [facility] [address] [place] [address] Dr. Belgica Llanes T4 [Mass/Vol] 6.70 ug/dL Normal 4.80-13.90 [facility] Comment on above: Performed By: #### D DIM #### [facility] [address] [place] [address] Dr. Belgica Lalnes GLYCOHEMOGLOBIN A1Con 2021 ADA RECOMMENDATION SEE BELOW Normal [facility] Comment on above: Result Comment: ADA RECOMMENDED LIMIT 4.0 - 6.0 ADA THERAPEUTIC TARGET < 7.0 ACTION SUGGESTED > 7.0 Performed By: #### A 1C #### [facility] [address] [place] [address] Dr. Belgica Llanes Glucose [Mass/Vol] 94 mg/dL Normal 74-106 [facility] Comment on above: Performed By: #### A 1C #### [facility] [address] [place] [address] Dr. Belgica Llanes Performed By: #### D DIM #### [facility] [address] [place] [address] Dr. Belgica Llanes HbA1c (Bld) [Mass fraction] 4.9 % Normal 4.5-6.2 [facility] Comment on above: Performed By: #### A 1C #### [facility] [address] [place] [address] Dr. Belgica Llanes IRONon 05-31-2022 Iron [Mass/Vol] 69.0 ug/dL Normal 50.0-170.0 [facility] Comment on above: Performed By: #### D DIM #### [facility] [address] [place] [address] Dr. Belgica Llanes LIPID PROFILEon 05-31-2022 CHOL-HDL RATIO NORM SEE BELOW Normal [facility] Comment on above: Result Comment: 3.3 - 4.4 LOW RISK 4.4 - 7.1 AVERAGE RISK 7.1 - 11.0 MODERATE RISK >11.0 HIGH RISK Performed By: #### D DIM #### [facility] [address] [place] [address] Dr. Belgica Llanes Cholesterol [Mass/Vol] 151 mg/dL Normal <=200 [facility] Comment on above: Performed By: #### D DIM #### [facility] [address] [place], [place] [address] Dr. Belgica Llanes Cholesterol in HDL [Mass/Vol] 49 mg/dL Normal 40-60 [facility] Comment on above: Performed By: #### D DIM #### [facility] [address] [place], [place] [address] Dr. Belgica Llanes Cholesterol in LDL [Mass/Vol] 84.8 mg/dL Normal [facility] Comment on above: Performed By: #### D DIM #### [facility] [address] [place] [address] Dr. Belgica Llanes Cholesterol.total/Cholestero l in HDL [Mass ratio] 3.1 {ratio} Normal [facility] Comment on above: Performed By: #### D DIM #### [facility] [address] [place] [address] Dr. Belgica Llanes HDL NORMAL > or = 60 mg/dl - LO W CARDIOVASCULAR RISK <40 mg/dl - HIGH CARDIOVASCULAR RISK Normal [facility] Comment on above: Performed By: #### D DIM #### [facility] [address] [place] [address] Dr. Belgica Llanes LDL CALC NORMAL SEE BELOW Normal [facility] Comment on above: Result Comment: <100 mg/dl OPTIMAL 100 - 129 mg/dl NEAR OR ABOVE OPTIMAL 130 - 159 mg/dl BORDERLINE HIGH 160 - 189 mg/dl HIGH >190 mg/dl VERY HIGH Performed By: #### D DIM #### [facility] [address] [place] [address] Dr. Belgica Llanes Triglyceride [Mass/Vol] 86 mg/dL Normal <=150 [facility] Comment on above: Performed By: #### D DIM #### [facility] [address] [address] [address] Belgica Llanes VLDL CALC 17.2 mg/dL Normal [facility] Comment on above: Performed By: #### D DIM #### [facility] [address] [place] [address] Dr. Belgica Llanes PROF 14(COMP METB)on 022 Albumin [Mass/Vol] 3.6 g/dL Normal 3.4-5.0 [facility] Comment on above: Performed By: #### D DIM #### [facility] [address] [place] [address] Dr. Belgica Llanes Albumin/Globulin [Mass ratio] 1.0 {ratio} Normal [facility] Comment on above: Performed By: #### D DIM #### [facility] [address] [address] [address] Belgica Llanes ALP [Catalytic activity/Vol] 71 U/L Normal 46-116 [facility] Comment on above: Performed By: #### D DIM #### [facility] [address] [address] [address] Belgica Llanes ALT [Catalytic activity/Vol] 23 U/L Normal 14-59 [facility] Comment on above: Performed By: #### D DIM #### [facility] [address] [place] [address] Dr. Belgica Llanes Anion gap [Moles/Vol] 10.8 mmol/L Normal [facility] Comment on above: Performed By: #### D DIM #### [facility] [address] [place] [address] Dr. Belgica Llanes AST [Catalytic activity/Vol] 12 U/L Critically low 15- 37 [facility] Comment on above: Performed By: #### D DIM #### [facility] [address] [place] [address] Dr. Belgica Llanes Bilirubin [Mass/Vol] 0.4 mg/dL Normal 0.2-1.0 [facility] Comment on above: Performed By: #### D DIM #### [facility] [address] [place] [address] Dr. Belgica Llanes Calcium [Mass/Vol] 8.7 mg/dL Normal 8.5-10.1 [facility] Comment on above: Performed By: #### D DIM #### [facility] [address] [place] [address] Dr. Belgica Llanes Chloride [Moles/Vol] 106 mmol/L Normal 98-107 [facility] Comment on above: Performed By: #### D DIM #### [facility] [address] [address] [address] Belgica Llanes CO2 [Moles/Vol] 29.2 mmol/L Normal 21.0-32.0 [facility] [place] Comment on above: Performed By: #### D DIM #### [facility] [address] [address] [address] Belgica Llanes Creatinine [Mass/Vol] 0.80 mg/dL Normal 0.55-1.02 [facility] Comment on above: Performed By: #### D DIM #### [facility] [address] [address] [address] Belgica Llanes EGFR-AF BHUTANESE >60 Normal >=60 [facility] Comment on above: Performed By: #### D DIM #### [facility] [facility] [address] [place] [address] Dr. Belgica Llanes EGFR-NON AF BHUTANESE >60 Normal >=60 [facility] Comment on above: Performed By: #### D DIM #### [facility] [address] [place] [address] Dr. Belgica Llanes Globulin (S) [Mass/Vol] 3.7 g/dL Normal T [facility] Comment on above: Performed By: #### D DIM #### [facility] [address] [place] [address] Dr. Belgica Llanes Potassium [Moles/Vol] 4.0 mmol/L Normal 3.5-5.1 [facility] Comment on above: Performed By: #### D DIM #### [facility] [address] [place] [address] Dr. Belgica Llanes Protein [Mass/Vol] 7.3 g/dL Normal 6.4-8.2 [facility] Comment on above: Performed By: #### D DIM #### [facility] [address] [place] [address] Dr. Belgica Llanes Sodium [Moles/Vol] 142 mmol/L Normal 136-145 [facility] Comment on above: Performed By: #### D DIM #### [facility] [address] [place] [address] Dr. Belgica Llanes Urea nitrogen [Mass/Vol] 8.0 mg/dL Normal 7.0-18.0 [facility] Comment on above: Performed By: #### D DIM #### [facility] [address] [place] [address] Dr. Belgica Llanes Urea nitrogen/Creatinine [Mass ratio] 10.0 mg/mg Normal [facility] Comment on above: Performed By: #### D DIM #### [facility] [address] [address] [address] Belgica Llanes TSHon 05-31-2022 TSH 1.206 uIU/mL Normal 0.358-3.740 [facility] Comment on above: Performed By: #### D DIM #### [facility] [address] [place] [address] Dr. Belgica Llanes COVID Quick Testingon 2021 Result Negative [facility] [employer] Other Quick Fluon 11-12-2021 FLUAV Ab CF (S) [Titer] Negative [employer] [facility] Other FLUBV Ab CF (S) [Titer] Negative [employer] [facility] Other COVID Quick Testingon 2020 Result Positive [facility] [employer] Other Urine Cultureon 06-25-2021 Bacteria identified Cx Nom (U) Reason for Exam Dysuria Urine Reason for Exam: Dysuria : Urine <9,000 colonies/ml mixed bacterial skin contaminants 2 Days PERFORMED BY: [place] [address] PATHOLOGIST [employer] JUS PORRAS M.D. Normal [facility] Comment on above: Performed By: #### C UU #### [address] Vital Signs Date Time Vital Sign Value Performing Clinician Facility 10-16-2023 13:20-0500 Blood Pressure Location Slade BUSTAMANTE [facility] [place] 12-13-2023 13:20-0500 Diastolic blood pressure 78 mm[Hg] Slade NILL [facility] [place] 10-16-2023 13:20-0500 Heart rate 72 /min Slade NILL [facility] [place] 10-16-2023 13:20-0500 Respiratory rate 15 /min lSade NILL [facility] [place] 10-16-2023 13:20-0500 Systolic blood pressure 122 mm[Hg] Slade NILL [facility] [place] 08-26-2023 16:15-0400 Body height 175.26 cm Smiley Harrell Other [facility] Other 08-26-2023 16:15-0400 Body mass index (BMI) [Ratio] 33.52 kg/m2 Smiley Harrell Other [facility] Other 08-26-2023 16:15-0400 Body temperature 97.4 [degF] Smiley Harrell Other [facility] Other 08-26-2023 16:15-0400 Body weight 102.97 kg Smiley Sharri Other [facility] Other 08-26-2023 16:15-0400 Diastolic blood pressure 70 mm[Hg] Smiley Harrell Other [facility] Other 08-26-2023 16:15-0400 Respiratory rate 18 /min Smiley Harrell Other [facility] Other 08-26-2023 16:15-0400 SaO2% (BldA) [Mass fraction] 97 % Smiley Harrell Other [facility] Other 08-26-2023 16:15-0400 Systolic blood pressure 100 mm[Hg] Smiley Harrell Other [facility] Other 11-12-2021 14:00-0500 Body height 175.26 cm Caterina Ginty Other [facility] Other 11-12-2021 14:00-0500 Body mass index (BMI) [Ratio] 30.71 kg/m2 Caterina Ginty Other [facility] Other 11-12-2021 14:00-0500 Body temperature 98.1 [degF] Ctaerina Ginty Other [facility] Other 11-12-2021 14:00-0500 Body weight 94.35 kg Caterina Ginty Other [facility] Other 11-12-2021 14:00-0500 Respiratory rate 20 /min Caterina Ginty Other [facility] Other 11-12-2021 14:00-0500 SaO2% (BldA) [Mass fraction] 99 % Caterina Ginty Other [facility] Other 10-01-2021 11:00-0500 Body height 175.26 cm Lisandra Parada Other [facility] Other 10-01-2021 11:00-0500 Body mass index (BMI) [Ratio] 30.27 kg/m2 Lisandrakapil Parada Other [facility] Other 10-01-2021 11:00-0500 Body temperature 98.9 [degF] Lisandra Parada Other [facility] Other 10-01-2021 11:00-0500 Body weight 92.99 kg Lisandra Parada Other [facility] Other 10-01-2021 11:00-0500 Respiratory rate 18 /min Lisandra Parada Other [facility] Other 10-01-2021 11:00-0500 SaO2% (BldA) [Mass fraction] 99 % Lisandra Parada Other [facility] Other Encounters Encounter Date Encounter Type Care Provider Facility Start: 10-16-2023 End: 10-17-2023 ambulatory Slade BUSTAMANTE Facility:[facility] Start: 10-16-2023 End: 10-16-2023 Patient encounter procedure Slade BUSTAMANTE [facility] Start: 09-19-2023 ambulatory Slade BUSTAMANTE Facility:[facility] Start: 08-26-2023 End: 08-26-2023 ambulatory Smiley Harrell Other [facility] Other Start: 08-26-2023 Office outpatient vi sit 15 minutes Smiley Harrell [facility] Start: 03-19-2023 End: 03-20-[address] HERB ELLIS . Facility:[facility] Start: 02-27-2023 End: 02-28-[address] HERB ELLIS . Facility:[facility] Start: 02-25-2023 End: 02-26-[address] HERB ELLIS . Facility:[facility] Start: 12-25-2022 End: 12-26-[address] HERB ELLIS . Facility:[facility] Start: 12-25-2022 End: 01-01-[address] HERB ELLIS . Facility:[facility] Start: 10-08-2022 End: 10-08-2022 ambulatory FRED CUNNINGHAM . Facility:[facility] Start: 07-06-[address] HERB ELLIS . Facili ty:[facility] Start: 06-22-2022 End: 06-22-2022 ambulatory Astrid Jonesault Other [facility] Other Start: 06-22-2022 Encounter for other preprocedural examination Astrid Neva [facility] Start: 06-22-2022 Office outpatient vi sit 5 minutes Astrid Hooks [facility] Start: 06-05-2022 Encounter for genera l adult medical examination without abnormal findings DR HERB ELLIS . [facility] Start: 05-31-2022 End: 06-01-[address] HERB LELIS . Facility:[facility] Start: 05-31-2022 End: 06-01-2022 Encounter for general adult medical examination without abnormal findings DR HERB ELLIS . Facility:[facility] Start: 11-12-2021 End: 11-12-2021 ambulatory Caterina Vargas Other [facility] Other Start: 11-12-2021 Office outpatient vi sit 15 minutes Caterina Vargas [facility] Start: 10-01-2021 End: 10-01-2021 ambulatory Lisandra Parada Other [facility] Other Start: 10-01-2021 Office outpatient vi sit 15 minutes Lisandra Parada [facility] Procedures Date Procedure Procedure Detail Performing Clinician Ligation of fallopian tube Jerardo BUSTAMANTE Immunizations Immunization Date Immunization Notes Care Provider Aurelia agrawal NEGATED: Highlighted row has not occurred!10-16-2023 influenza virus vaccine, unspecified formulation Slade BUSTAMANTE [facility] [place] Payers Date Payer Category Payer Unknown [id number] 2.16.84 [id number] 1991 Unknown [id number] 2.16.84 [id number] 1991 Unknown [id number] 2.16.84 [id number] 1991 Unknown [id number] 2.16.84 [id number] 1991 Unknown [id number] 2.16.84 [id number] 1991 Unknown [id number] 2.16.84 [id number] 1991 Unknown [id number] 2.16.84 [id number] 1991 Unknown [id number] 2.16.84 [id number] 1991 Unknown [id number] 2.16.8 [id number] 1958 [facility] [id number] 1958 Self-pay 1958 Unknown [id number] Social History Date Type Detail Facility Unknown if ever smoked [facility] Other Sex Assigned At [facility] Start: 10-16-2023 Tobacco smoking status Ex-smoker (fi nding) [facility] [place] Tobacco smoking status Never [facility] [place] Functional Status Date Assessment Result Facility 10-16-2023 Functional Status N/A [facility] Clinical Note 10-16-2023 Note Date & Type Note Facility 10-16-2023 Note Chief Complaint consultation for abd pain, GERD sx's HPI Staff 33 year old female presents on consultation from Dr. Ellis for RUQ/epigastric pain, feeling of food getting stuck in chest, regurgitation of food, nausea, bloating and belching. Describes pain as ache/burning that is unrelated to food. Nausea is not related to food but is worse shortly after eating. Reports daily symptoms for approximately 2 months. Trial of Omeprazole x 1 month was ineffective; this was changed to Protonix on 09/19. Verbalized Protonix made nausea worse so she did not continue this. She does take Omeprazole every 3 days. RUQ US completed 10/07 with cholelithiasis. History of Present Illness 33 yo female with h/o migraines, GERD, referred for worsening symptoms; intermittent dysphagia, regurgitation and belching, no improvement with omeprazole; recently changed to Protonix, stopped taking it because of nausea; reports epigastric burning pain with radiation to back and chest; no emesis or change in bowel habits; no h/o jaundice or pancreatitis; no food triggers, no fatty food intolerance; had RUQ US in March with sludge noted; repeat recently read as cholelithiasis, but little change, still with sludge, no wall thickening or ductal dilation; abd operations significant for tubal ligation; no previous EGD; no asa or NSAID use; no tobacco use. Review of Systems PHQ Score Initial Depression Screen Score: 0 SCORE ROS - Provider Constitutional: no fever, no sweats, no weight loss. Eyes: no glasses, no blurred vision, no visual loss. ENMT: no dentures, no hoarseness, no swallowing difficulties, no hearing loss, no ear infection(s), no nose bleeds. Cardiovascular: normal blood pressure, no chest pain, regular heartbeat, no heart murmur. Respiratory: no shortness of breath, no cough, no asthma, no wheezing. Gastrointestinal: yes nausea, no vomiting, no diarrhea, no constipation, no blood in stool, no change in bowel habits, yes abdominal pain, no hepatitis. Genitourinary: no kidney stones, no urine infection, no dysuria. Musculoskeletal: no pain, no weakness. Skin: no changing moles, no rash, no skin lumps. Neurologic: no seizures, no epilepsy, no headache. Psychiatric: no emotional or psychiatric problem. Heme/Lymph: no bleeding problems, no anemia, no blood clots, no transfusions. Allergy/Immunologic: no swollen lymph nodes/glands, no IV drug abuse. Other: Additional ROS info: Except as noted in the above Review of Systems and in the History of Present Illness, all other systems have been reviewed and are negative or noncontributory. Physical Exam Vitals & Measurements HR: 72(Peripheral) RR: 15 BP: 122/78 HT: 68 in HT: 172.5 cm WT: 103 kg WT: 226.6 lb BMI: 34.61 HEENT: normal conjunctiva, sclera clear, no scleral icterus, EOM intact, PERRLA, oral mucosa moist without lesions. Neck: trachea midline, no mass, symmetric, no thyromegaly or nodules, no adenopathy Respiratory: lungs CTA, respirations non labored. Cardiovascular: regular rate and rhythm, no murmur, no pedal edema or varicosities. Gastrointestinal: obese, soft, non distended, mild tenderness, epigastrium, no pertioneal signs no masses, no palpable hernias, diastasis recti no, no hepatosplenomegaly; normal bs Lymphatic: no cervical adenopathy, no supraclavicular adenopathy. Musculoskeletal: normal gait, digits and nails without infection, nodes, cyanosis, clubbing. Skin: no rashes, no lesions, no ulcers, no subcutaneous nodules, induration. Psychiatric/Neuro: oriented to time, place, person, judgement normal, affect appropriate for age, insight intact, no focal deficits. Tests:, x-rays reviewed, review of old records completed , Discussed surgical options, risks, and possible complications with patient. Assessment/Plan 1. Epigastric pain (R10.13: Epigastric pain) plan EGD under anesthesia for further evaluation; informed consent obtained; US essentially unchanged from 03/2023, with sludge, no obstruction or inflammation. 2. Gastroesophageal reflux disease (K21.9: Gastro-esophageal reflux disease without esophagitis) see # 1 3. Dysphagia (R13.10: Dysphagia, unspecified) see # 1 Follow-up No qualifying data available Problem List/Past Medical History Ongoing BMI 34.0-34.9,adult Dysphagia Epigastric pain Gastroesophageal reflux disease Iron deficiency anemia Obesity Paroxysmal supraventricular tachycardia RUQ pain Historical No qualifying data Procedure/Surgical History Tubal ligation. Medications Nurtec ODT 75 mg oral tablet, disintegrating, 75 mg= 1 tab(s), SubLingual, Once ondansetron 4 mg Tab, 4 mg= 1 tab(s), Oral, q8hr Allergies Contrast Dye (Hives) No Known Medication Allergies Social History Alcohol - Denies Alcohol Use, 10/16/2023 Substance Abuse - Denies Substance Abuse, 10/16/2023 Tobacco Former smoker, quit more than 30 days ago Tobacco Use:. Never Smokeless Tobacco Use:. Cigarettes, 0.5 per day. Started age 17.0 Years. Stopped a (more content not included)... [facility] Comment on above: Result Comment: Elec carloally Signed By: DIANNA NAVA, Slade Phelps\Date and Time Signed: 10/16/23 13:55 EST Evaluation note 08-26-2023 Note Date & Type Note Facility 08-26-2023 Evaluation note Encounter Date Diagnosis Assessment Notes Aug, Contact with and (suspected) exposure to covid-19 (ICD-10 - Z20.822) Aug, Viral upper respiratory infection (ICD-10 - J06.9) COVID test negative. Viral upper respiratory infection discussed with patient. Push fluids, rest, coolmist humidifier to moisten room air at night. Throat lozenges for symptom relief of sore throat. OTC ibuprofen/Tyle nol as needed. Rx for [employer] sent to pharmacy, patient instructed on use of medication. Follow-up with primary care provider in 5 to 7 days, sooner with new or worsening symptoms. [facility] Other Evaluation note 06-22-2022 Note Date & Type Note Facility 06-22-2022 Evaluation note Encounter Date Diagnosis Assessment Notes Jun, Preop testing (ICD-10 - Z01.818) [facility] Other Evaluation note 11-12-2021 Note Date & Type Note Facility 11-12-2021 Evaluation note Encounter Date Diagnosis Assessment Notes Nov, Contact with and (suspected) exposure to other viral communicable diseases (ICD-10 - Z20.828) Advised patient that COVID antigen test was negative today. Influenza A/B test negative. Supportive care as directed, increase fluids and rest, Tylenol/Motrin as directed, OTC cough/cold remedies as directed on packaging, cool mist humidifier, throat lozenges. Discussed infection control practices such as good hand washing and mask wearing. Patient to follow up with PCP if sx persist or worsen despite treatment for COVID PCR test. Immediate eval for SOB, difficulty, chest pain, fevers that do not break with antipyretic or any other concerning symptoms as reviewed on patient education handout. Patient verbalizes understanding and is agreeable to treatment plan. Patient left in stable condition Nov, Other Additional time spent conducting pre-visit phone call, screening for symptoms, instructions on social distancing, application and removal of PPE, and cleaning of examination room, equipment and supplies was preformed. Patient education given for testing methodology and results. Patient care instructions given in writting by [facility] document [facility] Other Evaluation note 10-01-2021 Note Date & Type Note Facility 10-01-2021 Evaluation note Encounter Date Diagnosis Assessment Notes Sep, Contact with and (suspected) exposure to other viral communicable diseases (ICD-10 - Z20.828) Sep, COVID-19 (ICD-10 - U07.1) You must self isolate for 10 days after the onset of your symptoms which would be October 06, 2021. Sep, Other Additional time spent conducting pre-visit phone call, screening for symptoms, instructions on social distancing, application and removal of PPE, and cleaning of examination room, equipment and supplies was preformed. Patient education given for testing methodology and results. Patient care instructions given in writting by [facility] document. [facility] Other Evaluation + Plan note Note Date & Type Note Facility Evaluation + Plan note No data available for this section General Surgery [employer] History general Narrative - Reported Note Date & Type Note Facility History general Narrative - Reported Type Medical History migraine headache Surgical History tubal ligation [facility] Other History general Narrative - Reported Note Date & Type Note Facility History general Narrative - Reported Type Medical History migraine headache Medical History GERD (gastroesophageal reflux di sease) Medical History Iron deficiency Surgical History tubal ligation [facility] Other Hospital Discharge instructions Note Date & Type Note Facility Hospital Discharge instructions No data available for this section General Surgery [employer] Progress note Note Date & Type Note Facility Progress note No data available for this section [facility] Summary Purpose Family History No Family History Records FoundNo Family History Records Found No data available for this section No Family History Records Found Advance Directives No Advanced Directives Records FoundNo Advanced Directives Records FoundNo Advanced Directives Records Found Additional Source Comments INFORMATION SOURCE (unrecogn ized section and content) DATE CREATED AUTHOR 11/27/2021 [facility] DATE CREATED AUTHOR AUTHOR'S ORGANIZ ATION 03/20/2023 [facility] DATE CREATED AUTHOR AUTHOR'S ORGANIZ ATION 10/18/2023 [facility] REASON FOR VISIT (unrecogniz ed section and content) #5 RED TRAVERSE, CHILLS, COU GH, FEVER, FATIGUE, CONGESTION#17 RED TRAVERSE, COUGH, CHILLS, CONGESTION, EXPOSURERED TRAVERSE, ANTIGEN TEST FOR SURGERY PER ADMIN, DOESN'T WANT TO TRAVEL TO [facility] smell and taste, would like to have a covid test Patient Care team informatio n (unrecognized section and content) Personnel Name: Herb Ellis MD Address: Address: [address] [place] [address] FOR RECORDS PERTAINING TO PATIENTS WHO ARE OR HAVE BEEN ENROLLED IN A CHEMICAL DEPENDENCY/SUBSTANCEABUSE PROGRAM, SOME INFORMATION MAY BE OMITTED. This clinical summary was aggregated from multiple sources. Caution should be exercised in using it in the provision of clinical care. This summary normalizes information from multiple sources, and as a consequence, information in this document may materially change the coding, format and clinical context of patient data. In addition, data may be omitted in some cases. CLINICAL DECISIONS SHOULD BE BASED ON THE PRIMARY CLINICAL RECORDS. [facility]. provides no warranty or guarantee of the accuracy or completeness of information in this document.
== END 2023-10-23 09:29 | disposition home or self-care (01) ==
LOC: PST 09:28
PROVIDERS: PCP Family Medicine; Visit Provider Surgery
DX: Z01.818 Encounter for other preprocedural examination (principal); R10.11 Right upper quadrant pain; R10.13 Epigastric pain; R11.0 Nausea; K21.9 Gastro-esophageal reflux disease without esophagitis

== ENCOUNTER 2023-11-06 07:25 | Day surgery (SDC) | payer BC, SELFPAY ==
--- NOTE | 2023-11-06 | OP_ITS ---
OPERATION DATE: 11/06/2023 PREOPERATIVE DIAGNOSIS: Worsening gastroesophageal reflux disease, intermittent dysphagia, bloating. POSTOPERATIVE DIAGNOSIS: Small hiatal hernia as well as mild antral gastritis. PROCEDURE: EGD with antral biopsy x2. SURGEON: Slade Cruz M.D. ANESTHESIA: Monitored anesthesia care. ESTIMATED BLOOD LOSS: Less than 1 mL. INDICATIONS AND CONSENT: Patient is a 33-year-old female with history of worsening gastroesophageal reflux disease, bloating, epigastric pain and intermittent dysphagia. Indications, risks, benefits, alternatives of proceeding with EGD were explained extensively to the patient, including the risks of bleeding, aspiration, esophageal/gastric/duodenal perforation or anesthetic complications. All of her questions were answered. Informed consent was obtained. PROCEDURE: Patient brought to the operating room, placed in the left lateral decubitus position. Monitored anesthesia care was provided. Bite block was placed in the patient?s mouth. Scope was inserted into the oropharynx. Under direct visualization, it was advanced into the esophagus, past the cricopharyngeus, down to the stomach. The stomach was insufflated with air. The pylorus was traversed down to the descending portion of the duodenum. There was no evidence of duodenitis or ulceration. There was no scarring within the pyloric channel. Scope was pulled back into the stomach and retroflexed. There was noted to be a small, sliding type hiatal hernia. The GE junction was noted at approximately 40 cm. There was some mild antral gastritis without bleeding or ulceration. Biopsies x2 were obtained with pediatric cold biopsy forceps. The remainder of the esophagus was unremarkable. The scope was then withdrawn. Patient tolerated procedure well, was sent to recovery room in good condition. CC: Dav Ellis M.D. [facility] CENTERJose Antonio
--- OUTSIDE RECORDS SUMMARY | 2023-11-06 07:28 | XMS_ITS | CCD ---
Author Name Unknown Address [address] [place] [address] Organization [facility] Care Team Providers Care Truer Pinion And Wheel Name Role Phone Lisandra Parada Unavailable Caterina Vargas Unavailable Astrid Hooks Unavailable SETHY ., DR ESTEVEZ Admitting Unavailable HOY ., DR ESTEVEZ Attending Unavailable HOY ., DR ESTEVEZ Consulting Unavailable HOY ., DR ESTEVEZ Primary Care Unavailable HOY ., DR ETSEVEZ Primary Care Unavailable HOY ., DR ESTEVEZ [...] Harrell Unavailable Herb Ellis Primary Care Physician Slade BUSTAMANTE Attending Unavailable Herb Ellis Referring Unavailable Allergies Allergy Classification Reported Allergen(s) Allergy Type Date of Onset Reaction(s) Facility (1 source) Iodine (And Iodine Containting Drugs) Drug allergy (disorder) 6 [facility] Repository (1 source) Contrast media Propensity to adverse reactions to substance Weal (disorder) [facility] [place] (1 source) No Known Medication Allergies; Translations: [No Known Medication Allergies] Propensity to adverse reactions (disorder) [facility] Repository NEGATED: Highlighted row has been ruled out! (1 source) Drug allergy [facility] [place] Medications Current Medications Medication Drug Class(es) Dates Sig (Normalized) Sig (Original) [id number] 200 actuat albuterol 0.09 mg/actuat metered dose [...] oral tablet (1 source) alpha-Adrenergic Agonist, Uncompetitive Z-advzrs-U-asparta te Receptor Antagonist, Sigma-1 Agonist Start: 08-26-2023 [...] Results Test Name Value Interpretation Reference Range Facility Consent for Procedure/Surger n 10-18-2023 Consent for Procedure/Surgery [id number] #1.00TIFF Normal [facility] Ambulatory Visit Summaryon 1 12-17-2022 Ambulatory Visit Summary YUKI LITTLE :1990 Visit Date:10/16/2023 Ambulatory Visit Instructions Your [...] for choosing us for your care. Normal [facility] Facesheeton 10-16-2023 Facesheet [id number]#1.00TIFF Normal [facility] RAD - Ultrasound Reporton RAD - Ultrasound Report [id number] #1.00TIFF Normal [facility] Physician Referralon 023 Physician Referral [id number] #1.00TIFF Normal [facility] COVID + FLU Quick Testingon 08-26-2023 SARS-CoV-2 (COVID-19) RNA FRANCES+probe Ql (Unsp spec) Negative [employer] Other COVID + FLU Quick Testing Negative [employer] Other US SINGLE QUAD RT UPPERon US [...] CHAUNCEY SIMONS Date: 2023-03-19 09:40 Normal [facility] PROF 14(COMP METB)on 023 Albumin [Mass/Vol] 3.7 g/dL Normal 3.4-5.0 [facility] Comment on above: Performed By: #### D DIM #### [facility] [address] [place] [address] Dr. Belgica Llanes Albumin/Globulin [Mass ratio] 0.9 {ratio} Normal [facility] Comment on above: Performed By: #### D DIM #### [facility] [address] [place] [address] Dr. Belgica Llanes ALP [Catalytic activity/Vol] 83 U/L Normal 46-116 [facility] Comment on above: Performed By: #### D DIM #### [facility] [address] [place] [address] Dr. Belgica Llanes ALT [Catalytic activity/Vol] 25 U/L Normal 14-59 [facility] Comment on above: Performed By: #### D DIM #### [facility] [address] [address] [address] Belgica Llanes Anion gap [Moles/Vol] 15.1 mmol/L Normal [facility] Comment on above: Performed By: #### D DIM #### [facility] [address] [address] [address] Belgica Llanes AST [Catalytic activity/Vol] 17 U/L Normal 15-37 [facility] Comment on above: Performed By: #### D DIM #### [facility] [address] [place] [address] Dr. Belgica Llanes Bilirubin [Mass/Vol] 0.3 mg/dL Normal 0.2-1.0 [facility] Comment on above: Performed By: #### D DIM #### [facility] [address] [address] [address] Belgica Llanes Calcium [Mass/Vol] 9.0 mg/dL Normal 8.5-10.1 [facility] Comment on above: Performed By: #### D DIM #### [facility] [address] [address] [address] Belgica Llanes Chloride [Moles/Vol] 106 mmol/L Normal 98-107 [facility] Comment on above: Performed By: #### D DIM #### [facility] [address] [address] [address] Belgica Llanes CO2 [Moles/Vol] 26.2 mmol/L Normal 21.0-32.0 [facility] Comment on above: Performed By: #### D DIM #### [facility] [address] [place] [address] Dr. Belgica Llanes Creatinine [Mass/Vol] 0.77 mg/dL Normal 0.55-1.02 [facility] Comment on above: Performed By: #### D DIM #### [facility] [address] [place] [address] Dr. Belgica Llanes EGFR-AF AZERBAIJANI >60 Normal >=60 [facility] Comment on above: Performed By: #### D DIM #### [facility] [address] [place] [address] Dr. Belgica Llanes EGFR-NON AF AZERBAIJANI >60 Normal >=60 [facility] Comment on above: Performed By: #### D DIM #### [facility] [address] [address] [address] Belgica Llanes Globulin (S) [Mass/Vol] 4.0 g/dL Normal [facility] Comment on above: Performed By: #### D DIM #### [facility] [address] [place] [address] Dr. Belgica Llanes Glucose [Mass/Vol] 97 mg/dL Normal 74-106 [facility] Comment on above: Performed By: #### D DIM #### [facility] [address] [place] [address] Dr. Belgica Llanes Potassium [Moles/Vol] 4.3 mmol/L Normal 3.5-5.1 [facility] Comment on above: Performed By: #### D DIM #### [facility] [address] [place] [address] Dr. Belgica Llanes Protein [Mass/Vol] 7.7 g/dL Normal 6.4-8.2 [facility] Comment on above: Performed By: #### D DIM #### [facility] [address] [place] [address] Dr. Belgica Llanes Sodium [Moles/Vol] 143 mmol/L Normal 136-145 [facility] Comment on above: Performed By: #### D DIM #### [facility] [address] [place] [address] Dr. Belgica Llanes Urea nitrogen [Mass/Vol] 10.0 mg/dL Normal 7.0-18.0 [facility] Comment on above: Performed By: #### D DIM #### [facility] [address] [place] [address] Dr. Belgica Llanes Urea nitrogen/Creatinine [Mass ratio] 13.0 mg/mg Normal [facility] Comment on above: Performed By: #### D DIM #### [facility] [address] [place] [address] Dr. Belgica Llanes CBC AUTO DIFFon 02-25-2023 BASO # 0.0 103/ul Normal 0.0-0.1 [facility] Comment on above: Performed By: #### C BC #### [facility] [address] [place] [address] Dr. Belgica Llanes Basophils/100 WBC (Bld) 0.5 % Normal 0.2-2.0 [facility] Comment on above: Performed By: #### C BC #### [facility] [address] [place] [address] Dr. Belgica Llanes EO # 0.1 103/ul Normal 0.0-0.7 [facility] Comment on above: Performed By: #### C BC #### [facility] [address] [place] [address] Dr. Belgica Llanes Eosinophils/100 WBC (Bld) 2.0 % Normal 0.9-7.0 [facility] Comment on above: Performed By: #### C BC #### [facility] [address] [place] [address] Dr. Belgica Llanes Erythrocyte distribution width (RBC) [Ratio] 12.4 % Normal 11.0-15.0 [facility] Comment on above: Performed By: #### C BC #### [facility] [address] [place] [address] Dr. Belgica Llanes Hematocrit (Bld) [Volume fraction] 42.3 % Normal 36.0-48.0 [facility] Comment on above: Performed By: #### C BC #### [facility] [address] [place] [address] Dr. Belgica Llanes Hemoglobin (Bld) [Mass/Vol] 13.7 g/dL Normal 12.0-16.0 [facility] Comment on above: Performed By: #### C BC #### [facility] [address] [place] [address] Dr. Belgica Llanes IG # 0.01 10e3/ul Normal 0.00-0.03 [facility] Comment on above: Performed By: #### C BC #### [facility] [address] [place] [address] Dr. Belgica Llanes IG % 0.2 % Normal 0.0-0.5 [facility] Comment on above: Performed By: #### C BC #### [facility] [address] [place] [address] Dr. Belgica Llanes LYMPH # 2.2 103/ul Normal 1.2-3.8 [facility] Comment on above: Performed By: #### C BC #### [facility] [address] [place] [address] Dr. Belgica Llanes Lymphocytes/100 WBC (Bld) 37.1 % Normal 20.5-60.0 [facility] Comment on above: Performed By: #### C BC #### [facility] [address] [place] [address] Dr. Belgica Llanes MANUAL DIFF REQ NO Normal [facility] Comment on above: Performed By: #### C BC #### [facility] [address] [place] [address] Dr. Belgica Llanes MCH (RBC) [Entitic mass] 28.3 pg Normal 26.7-34.0 [facility] Comment on above: Performed By: #### C BC #### [facility] [address] [place] [address] Dr. Belgica Llanes MCHC (RBC) [Mass/Vol] 32.4 g/dL Normal 29.9-35.2 [facility] Comment on above: Performed By: #### C BC #### [facility] [address] [place] [address] Dr. Belgica Llanes MCV (RBC) [Entitic vol] 87.4 fL Normal 81.0-99.0 [facility] Comment on above: Performed By: #### C BC #### [facility] [address] [place] [address] Dr. Belgica Llanes MONO # 0.5 103/ul Normal 0.3-0.8 [facility] Comment on above: Performed By: #### C BC #### [facility] [address] [place] [address] Dr. Belgica Llanes Monocytes/100 WBC (Bld) 8.3 % Normal 1.7-12.0 [facility] Comment on above: Performed By: #### C BC #### [facility] [address] [place] [address] Dr. Belgica Llanes NEUT # 3.1 103/ul Normal 1.4-6.5 [facility] Comment on above: Performed By: #### C BC #### [facility] [address] [place] [address] Dr. Belgica Llanes Neutrophils/100 WBC (Bld) 51.9 % Normal 43.0-75.0 [facility] Comment on above: Performed By: #### C BC #### [facility] [address] [place] [address] Dr. Belgica Llanes Platelet mean volume (Bld) [Entitic vol] 8.6 fL Critically low 9.5-13.5 [facility] Comment on above: Performed By: #### C BC #### [facility] [address] [place] [address] Dr. Belgica Llanes PLT 313 103/ul Normal 150-450 [facility] Comment on above: Performed By: #### C BC #### [facility] [address] [place] [address] Dr. Belgica Llanes RBC 4.84 106/ul Normal 4.20-5.40 [facility] Comment on above: Performed By: #### C BC #### [facility] [address] [place] [address] Dr. Belgica Llanes WBC 6.0 103/ul Normal 4.0-11.0 [facility] Comment on above: Performed By: #### C BC #### [facility] [address] [place] [address] Dr. Belgica Llanes FERRITINon 02-25-2023 Ferritin [Mass/Vol] 400.0 ng/mL Critically high 6.2-137.0 [facility] Comment on above: Performed By: #### I MARIBETH, FERR #### [facility] [address] [place] [address] Dr. Belgica Llanes IRONon 02-25-2023 Iron [Mass/Vol] 61.0 ug/dL Normal 50.0-170.0 [facility] Comment on above: Performed By: #### D DIM #### [facility] [address] [place] [address] Dr. Belgica Llanes US PELVIS AND TRANSVAGon US PELVIS AND TRANSVAG EXAMINATION: US PELVIS AND TRANSVAG HISTORY: Iron deficiency anemia COMPARISON: [...] CHAUNCEY SIMONS Date: 2022-12-26 09:34 Normal [facility] CBC AUTO DIFFon 10-08-2022 BASO # 0.0 103/ul Normal 0.0-0.1 [facility] Comment on above: Performed By: #### C BC #### [facility] [address] [place] [address] Dr. Belgica Llanes Basophils/100 WBC (Bld) 0.5 % Normal 0.2-2.0 [facility] Comment on above: Performed By: #### C BC #### [facility] [address] [place] [address] Dr. Belgica Llanes EO # 0.1 103/ul Normal 0.0-0.7 [facility] Comment on above: Performed By: #### C BC #### [facility] [address] [place] [address] Dr. Belgica Llanes Eosinophils/100 WBC (Bld) 1.4 % Normal 0.9-7.0 [facility] Comment on above: Performed By: #### C BC #### [facility] [address] [place] [address] Dr. Belgica Llanes Erythrocyte distribution width (RBC) [Ratio] 14.0 % Normal 11.0-15.0 [facility] Comment on above: Performed By: #### C BC #### [facility] [address] [place] [address] Dr. Belgica Llanes Hematocrit (Bld) [Volume fraction] 35.7 % Critically low 36.0-48.0 [facility] Comment on above: Result Comment: Prev iously reported as: 30.8 On 10/08/2022 18:[address] [facility] Performed By: #### C BC #### [facility] [address] [place] [address] Dr. Belgica Llanes Hemoglobin (Bld) [Mass/Vol] 12.0 g/dL Normal 12.0-16.0 [facility] Comment on above: Result Comment: Prev iously reported as: 12.1 On 10/08/2022 18:[address] [facility] Performed By: #### C BC #### [facility] [address] [place] [address] Dr. Belgica Llanes IG # 0.01 10e3/ul Normal 0.00-0.03 [facility] Comment on above: Performed By: #### C BC #### [facility] [address] [place] [address] Dr. Belgica Llanes IG % 0.2 % Normal 0.0-0.5 [facility] Comment on above: Performed By: #### C BC #### [facility] [address] [place] [address] Dr. Belgica Llanes LYMPH # 1.7 103/ul Normal 1.2-3.8 [facility] Comment on above: Performed By: #### C BC #### [facility] [address] [place] [address] Dr. Belgica Llanes Lymphocytes/100 WBC (Bld) 29.6 % Normal 20.5-60.0 [facility] Comment on above: Performed By: #### C BC #### [facility] [address] [place] [address] Dr. Belgica Llanes MANUAL DIFF REQ NO Normal [facility] Comment on above: Performed By: #### C BC #### [facility] [address] [place] [address] Dr. Belgica Llanes MCH (RBC) [Entitic mass] 28.1 pg Normal 26.7-34.0 [facility] Comment on above: Result Comment: Prev iously reported as: 34.8 On 10/08/2022 18:[address] [facility] Performed By: #### C BC #### [facility] [address] [place] [address] Dr. Belgica Llanes MCHC (RBC) [Mass/Vol] 33.6 g/dL Normal 29.9-35.2 [facility] Comment on above: Result Comment: Prev iously reported as: 39.3 On 10/08/2022 18:[address] [facility] Performed By: #### C BC #### [facility] [address] [place] [address] Dr. Belgica Llanes MCV (RBC) [Entitic vol] 83.6 fL Normal 81.0-99.0 [facility] Comment on above: Result Comment: Prev iously reported as: 88.5 On 10/08/2022 18:[address] [facility] Performed By: #### C BC #### [facility] [address] [place] [address] Dr. Belgica Llanes MONO # 0.4 103/ul Normal 0.3-0.8 [facility] Comment on above: Performed By: #### C BC #### [facility] [address] [place] [address] Dr. Belgica Llanes Monocytes/100 WBC (Bld) 7.2 % Normal 1.7-12.0 [facility] Comment on above: Performed By: #### C BC #### [facility] [address] [place] [address] Dr. Belgica Llanes NEUT # 3.5 103/ul Normal 1.4-6.5 [facility] Comment on above: Performed By: #### C BC #### [facility] [address] [place] [address] Dr. Belgica Llanes Neutrophils/100 WBC (Bld) 61.1 % Normal 43.0-75.0 [facility] Comment on above: Performed By: #### C BC #### [facility] [address] [place] [address] Dr. Belgica Llanes Platelet mean volume (Bld) [Entitic vol] 9.0 fL Critically low 9.5-13.5 [facility] Comment on above: Performed By: #### C BC #### [facility] [address] [place] [address] Dr. Belgica Llanes PLT 323 103/ul Normal 150-450 [facility] Comment on above: Performed By: #### C BC #### [facility] [address] [address] [address] Belgica Llanes RBC 3.48 106/ul Critically low 4.20-5.40 [facility] Comment on above: Performed By: #### C BC #### [facility] [address] [address] [address] Belgica Llanes WBC 5.7 103/ul Normal 4.0-11.0 [facility] Comment on above: Performed By: #### C BC #### [facility] [address] [address] [address] Belgica Llanes D-DIMERon 10-08-2022 D-DIMER 0.21 mg/L FEU Normal <=0.59 [facility] Comment on above: Performed By: #### D DIM #### [facility] [address] [place] [address] Dr. Belgica Llanes D-DIMER COMMENTS SEE BELOW Normal [facility] Comment on above: Result Comment: Incr eases [...] hospitalization. Performed By: #### D DIM #### [facility] [address] [place] [address] Dr. Belgica Llanes IRONon 10-08-2022 Iron [Mass/Vol] 19.0 ug/dL Critically low 50.0-170.0 [facility] Comment on above: Performed By: #### I MARIBETH #### [facility] [address] [place] [address] Dr. Belgica Llanes PREG HCG QUALon 10-08-2022 , QUAL Negative Normal NEGATIVE [facility] Comment on above: Performed By: #### D DIM #### [facility] [address] [place] [address] Dr. Belgica Llanes PROF 14(COMP METB)on 022 Albumin [Mass/Vol] 3.7 g/dL Normal 3.4-5.0 [facility] Comment on above: Performed By: #### C MP, HSTROPN, TSH #### [facility] [address] [place] [address] Dr. Belgica Llanes Albumin/Globulin [Mass ratio] 1.0 {ratio} Normal [facility] Comment on above: Performed By: #### C MP, HSTROPN, TSH #### [facility] [address] [place] [address] Dr. Belgica Llanes ALP [Catalytic activity/Vol] 87 U/L Normal 46-116 [facility] Comment on above: Performed By: #### C MP, HSTROPN, TSH #### [facility] [address] [place] [address] Dr. Belgica Llanes ALT [Catalytic activity/Vol] 9 U/L Critically low 14-59 [facility] Comment on above: Performed By: #### C MP, HSTROPN, TSH #### [facility] [address] [place] [address] Dr. Belgica Llanes Anion gap [Moles/Vol] 10.8 mmol/L Normal [facility] Comment on above: Performed By: #### C MP, HSTROPN, TSH #### [facility] [address] [place] [address] Dr. Belgica Llanes AST [Catalytic activity/Vol] 11 U/L Critically low 15-37 [facility] Comment on above: Performed By: #### C MP, HSTROPN, TSH #### [facility] [address] [place] [address] Dr. Belgica Llanes Bilirubin [Mass/Vol] 0.2 mg/dL Normal 0.2-1.0 [facility] Comment on above: Performed By: #### C MP, HSTROPN, TSH #### [facility] [address] [place] [address] Dr. Belgica Llanes Calcium [Mass/Vol] 8.6 mg/dL Normal 8.5-10.1 [facility] Comment on above: Performed By: #### C MP, HSTROPN, TSH #### [facility] [address] [address] [address] Belgica Llanes Chloride [Moles/Vol] 103 mmol/L Normal 98-107 [facility] Comment on above: Performed By: #### C MP, HSTROPN, TSH #### [facility] [address] [address] [address] Belgica Llanes CO2 [Moles/Vol] 26.7 mmol/L Normal 21.0-32.0 [facility] Comment on above: Performed By: #### C MP, HSTROPN, TSH #### [facility] [address] [address] [address] Belgica Llanes Creatinine [Mass/Vol] 0.85 mg/dL Normal 0.55-1.02 [facility] Comment on above: Performed By: #### C MP, HSTROPN, TSH #### [facility] [address] [address] [address] Belgica Llanes EGFR-AF AZERBAIJANI >60 Normal >=60 [facility] Comment on above: Performed By: #### C MP, HSTROPN, TSH #### [facility] [address] [address] [address] Belgica Llanes EGFR-NON AF AZERBAIJANI >60 Normal >=60 [facility] Comment on above: Performed By: #### C MP, HSTROPN, TSH #### [facility] [address] [address] [address] Belgica Llanes Globulin (S) [Mass/Vol] 3.8 g/dL Normal [facility] Comment on above: Performed By: #### C MP, HSTROPN, TSH #### [facility] [address] [address] [address] Belgica Llanes Glucose [Mass/Vol] 97 mg/dL Normal 74-106 [facility] Comment on above: Performed By: #### C MP, HSTROPN, TSH #### [facility] [address] [place] [address] Dr. Belgica Llanes Potassium [Moles/Vol] 3.5 mmol/L Normal 3.5-5.1 [facility] Comment on above: Performed By: #### C MP, HSTROPN, TSH #### [facility] [address] [address] [address] Belgica Llanes Protein [Mass/Vol] 7.5 g/dL Normal 6.4-8.2 [facility] Comment on above: Performed By: #### C MP, HSTROPN, TSH #### [facility] [address] [place] [address] Dr. Belgica Llanes Sodium [Moles/Vol] 137 mmol/L Normal 136-145 [facility] Comment on above: Performed By: #### C MP, HSTROPN, TSH #### [facility] [address] [place] [address] Dr. Belgica Llanes Urea nitrogen [Mass/Vol] 9.0 mg/dL Normal 7.0-18.0 [facility] Comment on above: Performed By: #### C MP, HSTROPN, TSH #### [facility] [address] [place] [address] Dr. Belgica Llanes Urea nitrogen/Creatinine [Mass ratio] 10.6 mg/mg Normal [facility] Comment on above: Performed By: #### C MP, HSTROPN, TSH #### [facility] [address] [place] [address] Dr. Belgica Llanes TROPONIN, HIGH SENSITIVITYon 10-08-2022 HSTROP 7.5 pg/mL Normal 4.0-51.3 [facility] Comment on above: Result Comment: CUT- OFF POINTS HAVE BEEN ESTABLISHED BASED ON THE FOURTH UNIVERSAL DEFINITIONS OF MYOCARDIAL INFARCTION. THE UPPER REFERENCE LIMIT (URL) OF TROPONIN, DEFINED THE 99TH PERCENTILE OF cTnI DISTRIBUTION IN A REFERENCE POPULATION, HAS BEEN CONFIRMED THE DECISION THRESHOLD FOR CA DIAGNOSIS. Performed By: #### C MP, HSTROPN, TSH #### [facility] [address] [place] [address] Dr. Belgica Llanes TSHon 10-08-2022 TSH 1.228 uIU/mL Normal 0.358-3.740 [facility] Comment on above: Performed By: #### C MP, HSTROPN, TSH #### [facility] [address] [place] [address] Dr. Belgica Llanes XR CHEST 1 Von [...] by: MARITZA GORE Date: 2022-10-08 19:41 Normal [facility] COVID Quick Testingon 2021 Result Negative [employer] Other INSULINon 06-01-2022 Insulin 13.1 uIU/mL Normal 2.6-24.9 [facility] Comment on above: Performed By: #### D DIM #### [facility] [address] [place] [address] Dr. Belgica Llanes CBC AUTO DIFFon 05-31-2022 BASO # 0.0 103/ul Normal 0.0-0.1 [facility] Comment on above: Performed By: #### C BC #### [facility] [address] [place] [address] Dr. Belgica Llanes Basophils/100 WBC (Bld) 0.6 % Normal 0.2-2.0 [facility] Comment on above: Performed By: #### C BC #### [facility] [address] [place] [address] Dr. Belgica Llanes EO # 0.1 103/ul Normal 0.0-0.7 [facility] Comment on above: Performed By: #### C BC #### [facility] [address] [place] [address] Dr. Belgica Llanes Eosinophils/100 WBC (Bld) 2.7 % Normal 0.9-7.0 [facility] Comment on above: Performed By: #### C BC #### [facility] [address] [place] [address] Dr. Belgica Llanes Erythrocyte distribution width (RBC) [Ratio] 14.1 % Normal 11.0-15.0 [facility] Comment on above: Performed By: #### C BC #### [facility] [address] [place] [address] Dr. Belgica Llanes Hematocrit (Bld) [Volume fraction] 33.7 % Critically low 36.0-48.0 [facility] Comment on above: Performed By: #### C BC #### [facility] [address] [place] [address] Dr. Belgica Llanes Hemoglobin (Bld) [Mass/Vol] 12.4 g/dL Normal 12.0-16.0 [facility] Comment on above: Performed By: #### C BC #### [facility] [address] [place] [address] Dr. Belgica Llanes IG # 0.01 10e3/ul Normal 0.00-0.03 [facility] Comment on above: Performed By: #### C BC #### [facility] [address] [place] [address] Dr. Belgica Llanes IG % 0.3 % Normal 0.0-0.5 [facility] Comment on above: Performed By: #### C BC #### [facility] [address] [place] [address] Dr. Belgica Llanes LYMPH # 1.3 103/ul Normal 1.2-3.8 [facility] Comment on above: Performed By: #### C BC #### [facility] [address] [place] [address] Dr. Belgica Llanes Lymphocytes/100 WBC (Bld) 37.8 % Normal 20.5-60.0 [facility] Comment on above: Performed By: #### C BC #### [facility] [address] [place], [place] [id number] Dr. Belgica Llanes MANUAL DIFF REQ NO Normal [facility] Comment on above: Performed By: #### C BC #### [facility] [address] [place] [address] Dr. Belgica Llanes MCH (RBC) [Entitic mass] 32.6 pg Normal 26.7-34.0 [facility] Comment on above: Performed By: #### C BC #### [facility] [address] [place] [address] Dr. Belgica Llanes MCHC (RBC) [Mass/Vol] 36.8 g/dL Critically high 29.9-35.2 [facility] Comment on above: Performed By: #### C BC #### [facility] [address] [place] [address] Dr. Belgica Llanes MCV (RBC) [Entitic vol] 88.7 fL Normal 81.0-99.0 [facility] Comment on above: Performed By: #### C BC #### [facility] [address] [place] [address] Dr. Belgica Llanes MONO # 0.2 103/ul Critically low 0.3-0.8 [facility] Comment on above: Performed By: #### C BC #### [facility] [address] [place] [address] Dr. Belgica Llanes Monocytes/100 WBC (Bld) 6.3 % Normal 1.7-12.0 [facility] Comment on above: Performed By: #### C BC #### [facility] [address] [place] [address] Dr. Belgica Llanes NEUT # 1.7 103/ul Normal 1.4-6.5 [facility] Comment on above: Performed By: #### C BC #### [facility] [address] [place] [address] Dr. Belgica Llanes Neutrophils/100 WBC (Bld) 52.3 % Normal 43.0-75.0 [facility] Comment on above: Performed By: #### C BC #### [facility] [address] [place] [address] Dr. Belgica Llanes Platelet mean volume (Bld) [Entitic vol] 9.1 fL Critically low 9.5-13.5 [facility] Comment on above: Performed By: #### C BC #### [facility] [address] [place] [address] Dr. Belgica Llanes PLT 272 103/ul Normal 150-450 [facility] Comment on above: Performed By: #### C BC #### [facility] [address] [place] [address] Dr. Belgica Llanes RBC 3.80 106/ul Critically low 4.20-5.40 [facility] Comment on above: Performed By: #### C BC #### [facility] [address] [place] [address] Dr. Belgica Llanes WBC 3.3 103/ul Critically low 4.0-11.0 [facility] Comment on above: Performed By: #### C BC #### [facility] [address] [place] [address] Dr. Belgica Llanes FREE THYROXINE INDEX T7on FTI 2.35 Normal 1.30-4.50 [facility] Comment on above: Performed By: #### D DIM #### [facility] [address] [place] [address] Dr. Belgica Llanes T3U 35.0 % Normal 30.0-39.0 [facility] Comment on above: Performed By: #### D DIM #### [facility] [address] [place] [address] Dr. Belgica Llanes T4 [Mass/Vol] 6.70 ug/dL Normal 4.80-13.90 [facility] Comment on above: Performed By: #### D DIM #### [facility] [address] [place] [address] Dr. Belgica Llanes GLYCOHEMOGLOBIN A1Con 2021 ADA RECOMMENDATION SEE BELOW Normal [facility] Comment on above: Result Comment: ADA RECOMMENDED LIMIT 4.0 - 6.0 ADA THERAPEUTIC TARGET < 7.0 ACTION SUGGESTED > 7.0 Performed By: #### A 1C #### [facility] [address] [address] [address] Belgica Llanes Glucose [Mass/Vol] 94 mg/dL Normal 74-106 [facility] Comment on above: Performed By: #### A 1C #### [facility] [address] [place] [address] Dr. Belgica Llanes Performed By: #### D DIM #### [facility] [address] [address] [address] Belgica Llanes HbA1c (Bld) [Mass fraction] 4.9 % Normal 4.5-6.2 [facility] Comment on above: Performed By: #### A 1C #### [facility] [address] [address] [address] Belgica Llanes IRONon 05-31-2022 Iron [Mass/Vol] 69.0 ug/dL Normal 50.0-170.0 [facility] Comment on above: Performed By: #### D DIM #### [facility] [address] [place] [address] Dr. Belgica Llanes LIPID PROFILEon 05-31-2022 CHOL-HDL RATIO NORM SEE BELOW Normal [facility] Comment on above: Result Comment: 3.3 - 4.4 LOW RISK 4.4 - 7.1 AVERAGE RISK 7.1 - 11.0 MODERATE RISK >11.0 HIGH RISK Performed By: #### D DIM #### [facility] [address] [place] [address] Dr. Belgica Llanes Cholesterol [Mass/Vol] 151 mg/dL Normal <=200 [facility] Comment on above: Performed By: #### D DIM #### [facility] [address] [place] [address] Dr. Belgica Llanes Cholesterol in HDL [Mass/Vol] 49 mg/dL Normal 40-60 [facility] Comment on above: Performed By: #### D DIM #### [facility] [address] [place] [address] Dr. Belgica Llanes Cholesterol in LDL [Mass/Vol] 84.8 mg/dL Normal [facility] Comment on above: Performed By: #### D DIM #### [facility] [address] [address] [address] Belgica Llanes Cholesterol.total/Ch olesterol in HDL [Mass ratio] 3.1 {ratio} Normal [facility] Comment on above: Performed By: #### D DIM #### [facility] [address] [address] [address] Belgica Llanes HDL NORMAL > or = 60 mg/dl - LOW CARDIOVASCULAR RISK <40 mg/dl - HIGH CARDIOVASCULAR RISK Normal [facility] Comment on above: Performed By: #### D DIM #### [facility] [address] [address] [address] Belgica Llanes LDL CALC NORMAL SEE BELOW Normal [facility] Comment on above: Result Comment: <100 mg/dl OPTIMAL 100 - 129 mg/dl NEAR OR ABOVE OPTIMAL 130 - 159 mg/dl BORDERLINE HIGH 160 - 189 mg/dl HIGH >190 mg/dl VERY HIGH Performed By: #### D DIM #### [facility] [address] [address] [address] Belgica Llanes Triglyceride [Mass/Vol] 86 mg/dL Normal <=150 [facility] Comment on above: Performed By: #### D DIM #### [facility] [address] [address] [address] Belgica Llanes VLDL CALC 17.2 mg/dL Normal [facility] Comment on above: Performed By: #### D DIM #### [facility] [address] [address] [address] Belgica Llanes PROF 14(COMP METB)on 022 Albumin [Mass/Vol] 3.6 g/dL Normal 3.4-5.0 [facility] Comment on above: Performed By: #### D DIM #### [facility] [address] [address] [address] Belgica Llanes Albumin/Globulin [Mass ratio] 1.0 {ratio} Normal [facility] Comment on above: Performed By: #### D DIM #### [facility] [address] [address] [address] Belgica Llanes ALP [Catalytic activity/Vol] 71 U/L Normal 46-116 [facility] Comment on above: Performed By: #### D DIM #### [facility] [address] [address] [address] Belgica Llanes ALT [Catalytic activity/Vol] 23 U/L Normal 14-59 [facility] Comment on above: Performed By: #### D DIM #### [facility] [address] [address] [address] Belgica Llanes Anion gap [Moles/Vol] 10.8 mmol/L Normal [facility] Comment on above: Performed By: #### D DIM #### [facility] [address] [address] [address] Belgica Llanes AST [Catalytic activity/Vol] 12 U/L Critically low 15-37 [facility] Comment on above: Performed By: #### D DIM #### [facility] [address] [place] [address] Dr. Belgica Llanes Bilirubin [Mass/Vol] 0.4 mg/dL Normal 0.2-1.0 [facility] Comment on above: Performed By: #### D DIM #### [facility] [address] [address] [address] Belgica Llanes Calcium [Mass/Vol] 8.7 mg/dL Normal 8.5-10.1 [facility] Comment on above: Performed By: #### D DIM #### [facility] [address] [place] [address] Dr. Belgica Llanes Chloride [Moles/Vol] 106 mmol/L Normal 98-107 [facility] Comment on above: Performed By: #### D DIM #### [facility] [address] [address] [address] Belgica Llanes CO2 [Moles/Vol] 29.2 mmol/L Normal 21.0-32.0 [facility] Comment on above: Performed By: #### D DIM #### [facility] [address] [address] [address] Belgica Llanes Creatinine [Mass/Vol] 0.80 mg/dL Normal 0.55-1.02 [facility] Comment on above: Performed By: #### D DIM #### [facility] [address] [address] [address] Belgica Llaens EGFR-AF AZERBAIJANI >60 Normal >=60 [facility] Comment on above: Performed By: #### D DIM #### [facility] [address] [address] [address] Belgica Llanes EGFR-NON AF AZERBAIJANI >60 Normal >=60 [facility] Comment on above: Performed By: #### D DIM #### [facility] [address] [address] [address] Belgica Llanes Globulin (S) [Mass/Vol] 3.7 g/dL Normal [facility] Comment on above: Performed By: #### D DIM #### [facility] [address] [place] [address] Dr. Belgica Llanes Potassium [Moles/Vol] 4.0 mmol/L Normal 3.5-5.1 [facility] Comment on above: Performed By: #### D DIM #### [facility] [address] [place] [address] Dr. Belgica Llanes Protein [Mass/Vol] 7.3 g/dL Normal 6.4-8.2 [facility] Comment on above: Performed By: #### D DIM #### [facility] [address] [place] [address] Dr. Belgica Llanes Sodium [Moles/Vol] 142 mmol/L Normal 136-145 [facility] Comment on above: Performed By: #### D DIM #### [facility] [address] [place] [address] Dr. Belgica Llanes Urea nitrogen [Mass/Vol] 8.0 mg/dL Normal 7.0-18.0 [facility] Comment on above: Performed By: #### D DIM #### [facility] [address] [place] [address] Dr. Belgica Llanes Urea nitrogen/Creatinine [Mass ratio] 10.0 mg/mg Normal [facility] Comment on above: Performed By: #### D DIM #### [facility] [address] [place] [address] Dr. Belgica Llanes TSHon 05-31-2022 TSH 1.206 uIU/mL Normal 0.358-3.740 [facility] Comment on above: Performed By: #### D DIM #### [facility] [address] [place] [address] Dr. Belgica Llanes COVID Quick Testingon 2021 Result Negative [employer] Other Quick Fluon 11-12-2021 FLUAV Ab CF (S) [Titer] Negative [employer] Other FLUBV Ab CF (S) [Titer] Negative [employer] Other COVID Quick Testingon 2020 Result Positive [employer] Other Urine Cultureon 06-25-2021 Bacteria identified Cx Nom (U) Reason for Exam Dysuria Urine Reason for Exam: Dysuria : Urine <9,000 colonies/ml mixed bacterial skin contaminants 2 Days PERFORMED BY: [place] [address] PATHOLOGIST ACCOUNT SUPPORT ANALYST JUS PORRAS M.D. [facility] Comment on above: Performed By: #### C UU #### [address] Vital Signs Date Time Vital Sign Value Performing Clinician Facility 10-16-2023 13:20-0500 Blood Pressure Location Slade BUSTAMANTE [facility] 10-16-2023 13:20-0500 Diastolic blood pressure 78 mm[Hg] Slade BUSTAMANTE [facility] 10-16-2023 13:20-0500 Heart rate 72 /min Slade B[facility]AMAN[facility] 10-16-2023 13:20-0500 Respiratory rate 15 /min Slade BUSTAMANTE [facility] 10-16-2023 13:20-0500 Systolic blood pressure 122 mm[Hg] Sl[facility] 08-26-2023 16:15-0400 Body height 175.26 cm Smiley Harrell Other [employer] Other 08-26-2023 16:15-0400 Body mass index (BMI) [Ratio] 33.52 kg/m2 Smiley Harrell Other [employer] Other 08-26-2023 16:15-0400 Body temperature 97.4 [degF] Smiley Harrell Other [employer] Other 08-26-2023 16:15-0400 Body weight 102.97 kg Smiley Harrell Other [employer] Other 08-26-2023 16:15-0400 Diastolic blood pressure 70 mm[Hg] Smiley Harrell Other [employer] Other 08-26-2023 16:15-0400 Respiratory rate 18 /min Smiley Harrell Other [employer] Other 08-26-2023 16:15-0400 SaO2% (BldA) [Mass fraction] 97 % Smiley Harrell Other [employer] Other 08-26-2023 16:15-0400 Systolic blood pressure 100 mm[Hg] Smiley Harrell Other [employer] Other 11-12-2021 14:00-0500 Body height 175.26 cm Caterina Alicia Other [employer] Other 11-12-2021 14:00-0500 Body mass index (BMI) [Ratio] 30.71 kg/m2 Caterina Karinanty Other [facility] Other 11-12-2021 14:00-0500 Body temperature 98.1 [degF] Caterina Ginty Other [employer] Other 11-12-2021 14:00-0500 Body weight 94.35 kg Caterina Ginty Other [employer] Other 11-12-2021 14:00-0500 Respiratory rate 20 /min Caterina Ginty Other [employer] Other 11-12-2021 14:00-0500 SaO2% (BldA) [Mass fraction] 99 % Caterina Ginty Other [employer] Other 10-01-2021 11:00-0500 Body height 175.26 cm Lisandra Leimond Other [employer] Other 10-01-2021 11:00-0500 Body mass index (BMI) [Ratio] 30.27 kg/m2 Lisandra Leimond Other [employer] Other 10-01-2021 11:00-0500 Body temperature 98.9 [degF] Lisandra Karma Other [facility] [facility] Other 10-01-2021 11:00-0500 Body weight 92.99 kg Lisandra Karma Other [facility] Other 10-01-2021 11:00-0500 Respiratory rate 18 /min Lisandra Karma Other [employer] Other 10-01-2021 11:00-0500 SaO2% (BldA) [Mass fraction] 99 % Lisandra Karma Other [employer] Other Encounters Encounter Date Encounter Type Care Provider Facility Start: 10-16-2023 End: 10-17-2023 ambulatory Slade BUSTAMANTE Facility:[facility] Start: 10-16-2023 End: 10-16-2023 Patient encounter procedure Slade BUSTAMANTE General [facility] Start: 09-19-2023 ambulatory Slade BUSTAMANTE Facility:[facility] Start: 08-26-2023 End: 08-26-2023 ambulatory Smiley Harrell Other [employer] Other Start: 08-26-2023 Office outpatient vi sit [...] ty:[facility]1 Start: 06-22-2022 End: 06-22-2022 ambulatory Astrid Hooks Other [employer] [employer] Other Start: 06-22-2022 Encounter for other preprocedural examination Astrid Hooks [facility] Start: 06-22-2022 Office outpatient vi sit 5 minutes Astrid Hooks [facility] Start: 06-05-2022 Encounter for genera l adult medical examination without abnormal findings DR HERB ELLIS . [facility] Start: 05-31-2022 End: 06-01-[address] HERB ELLIS . Facility:[facility] Start: 05-31-2022 End: 06-01-2022 Encounter for general adult medical examination without abnormal findings DR HERB ELLIS . Facility:[facility] Start: 11-12-2021 End: 11-12-2021 ambulatory Caterina Ginty Other [employer] Other Start: 11-12-2021 Office outpatient vi sit 15 minutes Caterina Karinanty [facility] Start: 10-01-2021 End: 10-01-2021 ambulatory Lisandra Parada Other [employer] Other Start: 10-01-2021 Office outpatient vi sit 15 minutes Lisandra Parada [facility] Procedures Date Procedure Procedure Detail Performing Clinician Ligation of fallopian tube Jerardo romie BUST[facility]ANTE Immunizations Immunization Date Immunization Notes Care Provider Aurelia agrawal NEGATED: Highlighted row has not occurred!10-16-2023 influenza virus vaccine, unspecified formulation Slade BUSTAMANTE [facility] [place] Payers Date Payer Category Payer Unknown [id number] 2.16.84 [id number] 1991 Unknown [id number] 2.16.84 [id number] 1991 Unknown [id number] 2.16.84 [id number] 1991 Unknown [id number] 2.16.84 [id number] 1991 Unknown [id number] 2.16.84 [id number] 1991 Unknown [id number] 2.16.84 [id number] 1991 Unknown [id number] 2.16.84 [id number] 1991 Unknown [id number] 2.16.84 [id number] 1991 Unknown [id number] 2.16.8 [id number] 1958 [employer] Cross Blue [facility] [id number] 1958 Self-pay 1958 Unknown [id number] Social History Date Type Detail Facility Unknown if ever smoked [employer] Other Sex Assigned [facility] Start: 10-16-2023 Tobacco smoking status Ex-smoker (fi nding) [facility] [place] Tobacco smoking status Never Gener al [facility] [place] Functional Status Date Assessment Result Facility 10-16-2023 Functional Status N/A [facility] Clinical Note 10-16-2023 Note Date & [...] Years. Stopped a (more content not included)... [facility] Comment on above: Result Comment: Elec tronically Signed By: DIANNA NAVA, Slade Phelps\Date and [...] days, sooner with new or worsening symptoms. [employer] Other Evaluation note 06-22-2022 Note Date & Type Note Facility 06-22-2022 Evaluation note Encounter Date Diagnosis Assessment Notes Jun, Preop testing (ICD-10 - Z01.818) [facility] Other Evaluation note 11-12-2021 Note Date & [...] Patient care instructions given in writting by [facility] Care At Home document [employer] Other Evaluation note 10-01-2021 Note Date & [...] Patient care instructions given in writting by [facility] Care At Home document. [employer] [facility] Other Evaluation + Plan note Note Date & Type Note Facility Evaluation + Plan note No data available for this section General [facility] [place] History general Narrative - Reported Note Date & Type Note Facility History general Narrative - Reported Type Medical History migraine headache Surgical History tubal ligation [facility] Other History general Narrative - Reported Note Date & Type Note Facility History general Narrative - Reported Type Medical History migraine headache Medical History GERD (gastroesophageal reflux di sease) Medical History Iron deficiency Surgical History tubal ligation [facility] Other Hospital Discharge instructions Note Date & Type Note Facility Hospital Discharge instructions No data available for this section [facility] [place] Progress note Note Date & Type Note Facility Progress note No data available for this section [facility] [place] Summary Purpose Family History No Family History Records FoundNo Family History Records Found No data available for this section No Family History Records Found Advance Directives No Advanced Directives Records FoundNo Advanced Directives Records FoundNo Advanced Directives Records Found Additional Source Comments INFORMATION SOURCE (unrecogn ized section and content) DATE CREATED AUTHOR 11/27/2021 [facility] DATE CREATED AUTHOR AUTHOR'S ORGANIZ ATION 03/20/2023 [facility] DATE CREATED AUTHOR AUTHOR'S ORGANIZ ATION 10/18/2023 [facility] REASON FOR VISIT (unrecogniz ed section and content) #5 RED TRAVERSE, CHILLS, COU GH, FEVER, FATIGUE, CONGESTION#17 RED TRAVERSE, COUGH, CHILLS, CONGESTION, EXPOSURERED TRAVERSE, ANTIGEN TEST FOR SURGERY PER ADMIN, DOESN'T WANT TO TRAVEL TO [facility] smell and taste, would like to have a covid test Patient Care team informteddy n (unrecognized section and content) Personnel Name: Herb Ellis MD Address: Address: [address] [place] [address] FOR RECORDS PERTAINING TO PATIENTS WHO ARE [...] BE BASED ON THE PRIMARY CLINICAL RECORDS. [facility] [employer] provides no warranty or guarantee of the accuracy or completeness of information in this document.
[2023-11-06 07:52] LABS: HCG Qualitative NEGATIVE (NEGATIVE)
[2023-11-06 08:08] VITALS: BP 112/73; PULSE 94; RESP 16; TEMP 36.3; O2SAT 98
[2023-11-06 08:20] VITALS: BMI 34.2
[2023-11-06] MEDS: LACTATED RINGER'S SOLUTION 1,000 ML 50 ML IV (08:23)
[2023-11-06 09:15] VITALS: BP 100/68; PULSE 78; RESP 16; TEMP 36.6; O2SAT 98
[2023-11-06 09:30] VITALS: BP 129/78; PULSE 68; RESP 16; O2SAT 99
[2023-11-06 09:45] VITALS: BP 137/82; PULSE 82; RESP 16; O2SAT 99
== END 2023-11-06 09:45 | disposition home or self-care (01) ==
PROVIDERS: PCP Family Medicine; Visit Provider Surgery
PROC: (CPT 731; principal; 2023-11-06 08:20)
DX: R10.11 Right upper quadrant pain (principal); R10.13 Epigastric pain; K29.50 Unspecified chronic gastritis without bleeding; K21.9 Gastro-esophageal reflux disease without esophagitis; R13.10 Dysphagia, unspecified; R14.0 Abdominal distension (gaseous); K44.9 Diaphragmatic hernia without obstruction or gangrene; D50.9 Iron deficiency anemia, unspecified; E66.9 Obesity, unspecified; Z98.51 Tubal ligation status; K80.20 Calculus of gallbladder without cholecystitis without obstruction; Z87.891 Personal history of nicotine dependence; Z68.34 Body mass index [BMI] 34.0-34.9, adult; Z86.16 Personal history of COVID-19
CPT/HCPCS: 43239; 36415; 84703; 88305; 88342; J2704

== ENCOUNTER 2025-08-24 14:41 | Emergency (ER) | payer BC, SELFPAY ==
[2025-08-24 14:45] VITALS: BP 121/76; PULSE 71; TEMP 36.6; O2SAT 99; BMI 36.9
--- NOTE | 2025-08-24 14:58 | CT_ITS ---
The [address] [address] Patient Name: YUKI LITTLE MRN: [id number] date: 1990 Sex: F Assigned Patient Location: ED.MAIN Current Patient Location: ED.MAIN Accession/Order Number: [id number] Exam Date: 08/24/2025 16:30 Report Date: 08/24/2025 16:58 At the request of: ILDEFONSO DIAZ Procedure: CT abdomen pelvis wo con CT ABDOMEN AND PELVIS WITHOUT CONTRAST COMPARISON: None CLINICAL DATA: Upper abdominal pain radiating to the back for the past few days. Spiral images were obtained through the abdomen and pelvis without contrast. This CT exam was performed using one or more following dose reduction techniques: Automated exposure control, adjustment of the mA and/or kV according to patient size, or use of iterative reconstruction technique. Limited cuts through the lung bases show no contributory findings. Evaluation of the intra-abdominal organs is slightly limited by the absence of contrast. No intrahepatic masses are identified. Cholelithiasis is suspected. There is no pericholecystic inflammation. The spleen and adrenal glands show no acute findings. The pancreas is within normal limits for size and contour. There is question of subtle fibrofatty stranding near the pancreatic head. Acute pancreatitis is not completely excluded. No renal calculi or hydronephrosis are seen. There is no ureteral dilatation or stones. The abdominal aorta is normal caliber. There are small retroperitoneal and mesenteric lymph nodes. No ascites is identified. There is a small umbilical hernia containing fat. The small bowel loops are not dilated. There is moderate fluid and food debris within the stomach. The colon is diffusely decompressed, limiting evaluation. There are no acute bony findings. Images through the pelvis show normal caliber small bowel loops. There is stool at the cecum. The appendix shows no signs of inflammation. The distal colon is decompressed. No diverticular disease is noted. There are tubal ligation clips, both on the left side. There are no dominant adnexal cysts. No urinary bladder abnormalities are seen. There is no ascites. CT/CT abdomen pelvis wo con IMPRESSION: CHOLELITHIASIS. QUESTION OF SUBTLE PERIPANCREATIC INFLAMMATION. CORRELATION WITH AMYLASE AND LIPASE IS SUGGESTED TO ASSESS FOR ANY POSSIBILITY OF PANCREATITIS. NO BOWEL OR URINARY TRACT OBSTRUCTION. MOSTLY DECOMPRESSED COLON, AND EVALUATION. NONSPECIFIC ABDOMINAL LYMPH NODES. NO OTHER ACUTE FINDINGS. Impression dictated by: Stephanie Manning M.D. 08/24/2025 4:58 PM Dictation Location: [place] [address] Electronically authenticated by: [id number] Y Date: 08/24/2025 16:58
--- NOTE | 2025-08-24 14:59 | ED.ABDPAIN1 ---
HPI - Abdominal Pain General Chief Complaint: Abdominal Pain Stated Complaint: ABDOMINAL PAIN Time Seen by Provider: 08/24/25 14:52 Source: patient Mode of arrival: walk-in Limitations: no limitations History of Present Illness HPI narrative: 34 year old female presents to the ED for upper abd pain. 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 Reports pressure. The discomfort wraps around to her back. She has had back pressure for several days. Reports two loose stools today. Denies fever, chills, injury, N/V, urinary symptoms. She does not want narcotics for pain. Related Data Home Medications ?Medication ?Instructions ?Recorded ?Confirmed omeprazole 20 mg capsule,delayed 20 mg PO DAILY 10/21/23 11/06/23 release rimegepant 75 mg disintegrating 75 mg PO DAILY PRN migraine 10/21/23 11/06/23 tablet (Nurtec ODT) headache Previous Rx's ?Medication ?Instructions ?Recorded hydrocodone 5 mg-acetaminophen 325 1 tab PO Q8H PRN pain 4 days #12 08/24/25 mg tablet tabs ondansetron 4 mg disintegrating 4 mg PO DAILY PRN nausea and 08/24/25 tablet vomiting 4 days #12 tabs Allergies Allergy/AdvReac Type Severity Reaction Status Date / Time Iodinated Contrast Media Allergy Hives Verified 08/24/25 14:45 acetaminophen (From Percocet) AdvReac Vomiting Verified 08/24/25 14:45 oxycodone (From Percocet) AdvReac Vomiting Verified 08/24/25 14:45 Review of Systems ROS Constitutional Denies: fever or chills Cardiovascular Denies: chest pain Respiratory Denies: shortness of breath or cough Gastrointestinal Reports: abdominal pain and diarrhea; Denies: nausea or vomiting Genitourinary Denies: painful urination, urinary frequency, urinary urgency or blood in urine Musculoskeletal Reports: back pain; Denies: neck pain Neurological Denies: headache or weakness in extremities [facility] Medical History (Updated 08/24/25 @ 19:59 by Leena Nice) COVID ?U07.1 - COVID-19 (ICD-10) Anxiety ?F41.9 - Anxiety disorder, unspecified (ICD-10) COVID-19 ?U07.1 - COVID-19 (ICD-10) Migraine ?G43.909 - Migraine, unspecified, not intractable, without status migrainosus (ICD-10) Palpitations ?R00.2 - Palpitations (ICD-10) Paroxysmal supraventricular tachycardia ?I47.10 - Supraventricular tachycardia, unspecified (ICD-10) Iron deficiency anemia ?D50.9 - Iron deficiency anemia, unspecified (ICD-10) Dysphagia ?R13.10 - Dysphagia, unspecified (ICD-10) Regurgitation of food ?R11.10 - Vomiting, unspecified (ICD-10) GERD (gastroesophageal reflux disease) ?K21.9 - Gastro-esophageal reflux disease without esophagitis (ICD-10) Epigastric pain ?R10.13 - Epigastric pain (ICD-10) Right upper quadrant pain ?R10.11 - Right upper quadrant pain (ICD-10) Surgical History (Updated 10/21/23 @ 13:35 by Varsha Lawrence NP) H/O abdominoplasty ?Z98.890 - Other specified postprocedural states (ICD-10) H/O tubal ligation ?Z98.51 - Tubal ligation status (ICD-10) Family History (Updated 11/06/23 @ 08:03 by Katie Richardson) Other Family history of diabetes mellitus Family history of hypertension Family history of lung cancer Social History (Updated 10/21/23 @ 13:31 by Varsha Lawrence NP) Within the past year, how often did you have a drink containing alcohol: monthly or less Smoking status: Former smoker Non-prescribed substance use: denies use 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 Highest level of school completed/degree received: Master's degree Little interest or pleasure in doing things: not at all Feeling down, depressed, or hopeless: not at all Exam Constitutional Vital Signs, click to edit/add: Last Vital Signs Temp 98.1 F 08/24/25 19:48 Pulse 87 08/24/25 19:48 Resp 18 08/24/25 19:48 BP 156/72 H 08/24/25 19:48 Pulse Ox 97 08/24/25 19:48 O2 Del Method Room Air 08/24/25 19:48 Common normals: no apparent distress and oriented x3 General appearance: cooperative HENMT Common normals: external ears normal and moist oral mucous membranes Eye Common normals: conjunctivae normal and no scleral icterus Neck & C-Spine Common normals: supple Respiratory Common normals: normal respiratory effort Effort & inspection: able to speak in complete sentences and symmetric chest movement Cardio Common normals: regular rate and regular rhythm GI Common normals: soft to palpation Palpation: tender Details: LUQ and RUQ Bladder/kidney exam: no CVA tenderness Neuro Common normals: oriented x3, moves all extremities and no focal motor deficits Sensorium/orientation: awake and alert Speech: speech normal Course Vital Signs Vital signs: Vital Signs Temperature 98 F 08/24/25 14:45 Pulse Rate 71 08/24/25 14:45 Respiratory Rate 16 08/24/25 14:45 Blood Pressure 121/76 08/24/25 14:45 Pulse Oximetry 99 08/24/25 14:45 Oxygen Delivery Method Room Air 08/24/25 14:45 Temperature 98.1 F 08/24/25 19:48 Pulse Rate 87 08/24/25 19:48 Respiratory Rate 18 08/24/25 19:48 Blood Pressure 156/72 H 08/24/25 19:48 Pulse Oximetry 97 08/24/25 19:48 Oxygen Delivery Method Room Air 08/24/25 19:48 MDM - Abdominal Pain MDM Narrative Medical decision making narrative: Laboratory studies were unremarkable. Ultrasound and CT scan showed cholelithiasis. Findings were discussed with the patient. She reported improvement in her pain with Toradol. Follow up with pcp and a surgeon for a recheck, further evaluation and treatment. OARRS was reviewed. Prescriptions were provided for Zofran and norco. Return to the ED for worsening symptoms. Differential Diagnosis Differential diagnosis: Likely abdominal pain, pancreatitis, small bowel obstruction and other (cholecystitis, gastritis) Medical Records Attestation: I reviewed the patient's medical records. Lab Data Attestation: I reviewed the patient's lab results. Labs: Lab Results 08/24/25 Range/Units 15:25 WBC 6.1 (4.0-11.0) 10^3/uL RBC 4.77 (4.20-5.40) 10^6/uL Hgb 13.8 (12.0-16.0) g/dL Hct 40.9 (36.0-48.0) % MCV 85.7 (81.0-99.0) fL MCH 28.9 (26.7-34.0) pg MCHC 33.7 (29.9-35.2) g/dL RDW 13.2 (11.0-15.0) % Plt Count 397 (150-450) 10^3/uL MPV 8.9 L (9.5-13.5) fL Neut % (Auto) 55.9 (43.0-75.0) % Lymph % (Auto) 35.2 (20.5-60.0) % [place] % (Auto) 6.2 (1.7-12.0) % Eos % (Auto) 2.0 (0.9-7.0) % Baso % (Auto) 0.5 (0.2-2.0) % Neut # (Auto) 3.4 (1.4-6.5) 10^3/uL Lymph # (Auto) 2.2 (1.2-3.8) 10^3/uL [place] # (Auto) 0.4 (0.3-0.8) 10^3/uL Eos # (Auto) 0.1 (0.0-0.7) 10^3/uL Baso # (Auto) 0.0 (0.0-0.1) 10^3/uL Abs Immat Gran (auto) 0.01 (0.00-0.03) 10^3/uL Imm/Tot Granulo (auto) 0.2 (0.0-0.5) % Sodium 141 (136-145) mmol/L Potassium 3.7 (3.5-5.1) mmol/L Chloride 102 (98-107) mmol/L Carbon Dioxide 23.5 (21.0-32.0) mmol/L Anion Gap 19.2 BUN 16.0 (7.0-18.0) mg/dL Creatinine 0.77 (0.55-1.02) mg/dL Est GFR ( Amer) >60 (>=60 mL/min/1.73m^2) Est GFR (Non-Af Amer) >60 (>=60 mL/min/1.73m^2) BUN/Creatinine Ratio 20.8 Glucose 114 H (74-106) mg/dL Calcium 9.4 (8.5-10.1) mg/dL Total Bilirubin 0.4 (0.2-1.0) mg/dL AST 32 (15-37) U/L ALT 21 (14-59) U/L Alkaline Phosphatase 129 H (46-116) U/L Total Protein 8.9 H (6.4-8.2) g/dL Albumin 4.1 (3.4-5.0) g/dL Globulin 4.8 g/dL Albumin/Globulin Ratio 0.9 Lipase 49.0 (16.0-77.0) U/L Serum HCG, Qual Negative (NEGATIVE) Imaging Data CT scan - abdomen: Attestation: I have reviewed the pertinent imaging results. Radiologist's impression: ITS Impressions Abdomen/Pelvis CT 08/24/25 14:58 IMPRESSION: CHOLELITHIASIS. QUESTION OF SUBTLE PERIPANCREATIC INFLAMMATION. CORRELATION WITH AMYLASE AND LIPASE IS SUGGESTED TO ASSESS FOR ANY POSSIBILITY OF PANCREATITIS. NO BOWEL OR URINARY TRACT OBSTRUCTION. MOSTLY DECOMPRESSED COLON, AND EVALUATION. NONSPECIFIC ABDOMINAL LYMPH NODES. NO OTHER ACUTE FINDINGS. Impression dictated by: Stephanie Manning M.D. 08/24/2025 4:58 PM [facility]ictation [facility] Electron[facility] authenticated by: [id number] Y Date: 08/24/2025 16:58 Upper Quadrant Ultrasound 08/24/25 17:17 IMPRESSION: Cholelithiasis. Impression dictated by: Jhon James M.D. 08/24/2025 7:32 PM Dictation Location: [place] [address] Electronically authenticated by: [id number] Y Date: 08/24/2025 19:32 Discharge Plan Discharge Chief Complaint: Abdominal Pain Clinical Impression: Abdominal pain, Cholelithiasis Patient Disposition: Home, Self-Care Time of Disposition Decision: 19:59 Condition: Good Mode of Transportation: Private Vehicle Prescriptions / Home Meds: New hydrocodone-acetaminophen 5-325 mg tablet 1 tab PO Q8H PRN (Reason: pain) 4 Days Qty: 12 0RF ondansetron 4 mg tablet,disintegrating 4 mg PO DAILY PRN (Reason: nausea and vomiting) 4 Days Qty: 12 0RF No Action Nurtec ODT 75 mg tablet,disintegrating 75 mg PO DAILY PRN (Reason: migraine headache) omeprazole 20 mg capsule,delayed release(DR/EC) 20 mg PO DAILY Print Language: Tongan Instructions: Gallstones (ED), Abdominal Pain (ED) Additional Instructions: Return to the ED for worsening symptoms. Referrals: Dav Ellis MD [Primary Care Provider, Family Practice] - 1 week Slade Cruz MD [Physician, General Surgery] - 1 week
--- OUTSIDE RECORDS SUMMARY | 2025-08-24 15:17 | XMS_ITS | Clinical Summary ---
Author Organization [facility] tem Address [id number] [address] [place] [address] Care Team Providers Care Applications Sales Consultant Name Role Phone Dav Ellis MD Primary Care Provider [phone] Allergies No known active allergies Medications No known medications Active Problems ProblemNoted DateDiagnosed DateObesity, Class II, BMI 35-39.9011/18/2024 Overview (11/18/2024): Discussed BMI at well woman visit Family History Medical HistoryRelationNameCommentsHypertensionFatherCOPDMaternal Grandmother DepressionMaternal GrandmotherDiabetesMaternal GrandmotherHeart attackMaternal GrandmotherThyroid diseaseMotherLung cancerPaternal GrandfatherRelationName StatusCommentsFatherMaternal GrandmotherMotherPaternal Grandfather Social History Tobacco UseTypesPacks/DayYears UsedDateSmoking Tobacco: NeverSmokeless Tobacco: Never Tobacco Cessation:Counseling Given: Not Answered Alcohol UseStandard Drinks/WeekCommentsYes0 (1 standard drink = 0.6 oz pure alcohol)socialPHQ-2AnswerDate RecordedTotal Pvrdx0715ChildcareAnswerDate LgzmqaigHpshksqxsPnkizew18/12/2019EmploymentAnswerDate RecordedEmploymentUnknown 04/15/2019Hunger ScreeningAnswerDate RecordedWithin the past 12 months we worried whether our food would run out before we got money to buy more.Never True12/15/2024Within the past 12 months the food we bought just didn't last and we didn't have money to get more.Never True12/15/2024CommentsUnknownSex and Gender InformationValueDate RecordedSex Assigned at BirthNot on fileLegal TeaAxbtzt88/06/2015 12:11 PM EDTGender IdentityNot on fileSexual OrientationNot on file Last Filed Vital Signs Vital SignReadingTime TakenCommentsBlood Bwrsnikf194/8812/15/2024 2:12 PM EST Pulse--Temperature--Respiratory Rate--Oxygen Saturation--Inhaled Oxygen Concentration--Xfmegs519.5 kg (241 lb 6.4 oz)12/15/2024 2:12 PM VVQQyohcz015.3 cm (5' 9 )12/15/2024 2:12 PM ESTBody Mass Index35.65012/15/2024 2:12 PM EST Plan of Treatment Health MaintenanceDue DateLast DoneCommentsDTaP,Tdap and Td Vaccines (1 - Tdap) 2010Influenza Teednkx3607/05/2025dult BMI Follow Up Plan11/18/2025 11/18/2024Depression Mzelcquaj62dult BMI Kthimhzgr01/11/2026 12/15/2024Tobacco Qbbhrpgta82Pap Smear, 11/18/2024 Medical Devices Not on file Procedures Procedure NamePriorityDate/TimeAssociated DiagnosisCommentsHIGH RISK HPV W/ROSIE Hsuqbvg0311/18/2024 4:46 AM EST Cervical smear, as part of routine gynecological examination from Last 3 Months or Most Recently Relevant to Health Maintenance Results * High risk HPV w/rosie (11/18/2024 4:46 AM EST)ComponentValueRef RangeTest MethodAnalysis TimePerformed AtPathologist SignatureHpv specimen typeThinPrep 11/19/2024 4:47 AM [facility] 16NegativeNegative^Negative 11/20/2024 3:52 PM [facility]Hpv 18Negative Negative^Hhoaiksd92/17/2025 3:52 PM [facility] LABOther high risk hpvNegativeNegative^Gzshflwv45/17/2025 3:52 PM [facility] LABComment: HPV types 31,33,35,39,45,52,56,58,59,66 and 68 DNA were undetectable. Specimen (Source)Anatomical Location / LateralityCollection Method / Volume Collection TimeReceived NqabERUCT93/15/2025 4:46 AM EST11/19/2024 4:47 AM EST Narrative Authorizing ProviderResult TypeResult StatusLilly Francis FISH STRINGER ASSEMBLER-CNPLAB BLOOD ORDERABLESFinal ResultPerforming OrganizationAddressCity/State/ZIP CodePhone Number [facility] [address] [place] [address] [facility] [address], [address] [place] [address] from Last 3 Months or Most Recently Relevant to Health Maintenance Insurance Care Teams Team MemberRelationshipSpecialtyStart DateEnd Dav Ellis MD [address] [place] [address] PCP - GeneralFamily Medicine12/02/24
--- OUTSIDE RECORDS SUMMARY | 2025-08-24 15:17 | XMS_ITS | Clinical Summary ---
Author Organization [facility] Healthcare Address [address] [place] [address] Care Team Providers Care Weighter Name Role Phone Unavailable Primary Care Provider Unavailabl e Social History Tobacco UseTypesPacks/DayYears UsedDateSmoking Tobacco: Never Assessed CommentsUnknownSex and Gender InformationValueDate RecordedSex Assigned at Not on fileLegal EvtEgcykt55/15/2023 7:04 PM EDTGender IdentityNot on fileSexual OrientationNot on file Plan of Treatment Not on file
--- OUTSIDE RECORDS SUMMARY | 2025-08-24 15:18 | XMS_ITS | CCD ---
Author Organization [facility] Team Providers Care Manager Of Maintenance Name Role Phone Lisandra Parada Unavailable Caterina Vargas Unavailable Astrid Hooks Unavailable RHONDA ., DR ESTEVEZ Admitting Unavailable HOY ., [...] Unavailable Herb Ellis Primary Care Physician Slade BUSTAMATNE Attending Unavailable Herb Ellis Referring Unavailable Slade BUSTAMANTE Attending Unavailable Slade BUSTAMANTE Attending Unavailable Unavailable Primary Care Provider UnavailLILLY Felipe Attending Unavailable LILLY BECERRA Referring Unavailable HERB ELLIS Primary Care Unavailable LILLY BECERRA Referring Unavailable Herb Ellis MD Primary Care Provider [phone] LILLY BECERRA Attending Unavailable DIONNE ABDUL Attending Unavailable HERB ELLIS Primary Care Unavailable Allergies Allergy ClassificationReported Allergen(s)Allergy TypeDate of OnsetReaction(s) Facility (1 source)Iodine (And Iodine Containting Drugs)Drug allergy (disorder)11-04-2005 [facility] Repository (2 sources)Contrast media; Translations: [Contrast Dye]Propensity to adverse reactions to substanceWeal (disorder)[facility] [place] (1 source)No Known Medication Allergies; Translations: [No Known Medication Allergies]Propensity to adverse reactions (disorder)[facility] RepositoryNEGATED: Highlighted row has been ruled out! (1 source)Drug allergyGeneral Surgery [place] Medications Current Medications MedicationDrug Class(es)DatesSig (Normalized)Sig (Original)[id number] 200 actuat albuterol 0.09 mg/actuat metered dose inhaler (1 source)beta2-Adrenergic AgonistStart: 35-35-8232gldq 2 puff(s) by inhalation four times daily as neededAlbuterol Sulfate HFA 108 (90 Base) MCG/ACT 2 puffs Inhalation qid prn Sep, Activeazithromycin 250 mg oral tablet (1 source)Macrolide AntimicrobialStart: 12-21-3512Vwzpjtuyk 250 MG 2 tablet on the first day, then 1 tablet daily for 4 days Orally Once a day for 5 day(s) Sep, Activedextromethorphan hydrobromide 15 mg / guaiFENesin 400 mg / pseudoephedrine hydrochloride 60 mg oraltablet (1 source)alpha-Adrenergic Agonist, Uncompetitive Z-odowyx-J-aspartate Receptor Antagonist, Sigma-1 AgonistStart: 77-80-2695Rvadjcu DM 60-15-400 MG 1 tablet at 4 hour intervals as needed Orally Four times a day for 3 days Aug, Activeomeprazole 40 mg delayed release oral capsule (1 source)Proton Pump InhibitorOmeprazole 40 MG Oral for 15 Days Active ondansetron 4 mg oral tablet (1 source)Serotonin-3 Receptor AntagonistStart: 97-22-3062lpba 1 tablet by mouth every eight hoursondansetron 4 mg Tab 4 mg = 1 tab(s), Oral, q8hr, Refills(s) 0 Start Date: 10/16/23 Status: OrderedpredniSONE 20 mg oral tablet (1 source)Start: 70-60-9698olpr 1 tablet by mouth every twelve hourspredniSONE 20 MG 1 tablet Orally bid for 5 day(s) Sep, Activerimegepant 75 mg disintegrating oral tablet (1 source)Start: 56-49-1145qfuo 1 tablet under the tongue onceNurtec ODT 75 mg oral tablet, disintegrating 75 mg = 1 tab(s), SubLingual, Once, Refills(s) 0 StartDate: 10/02/23 Status: Ordered Completed/Discontinued Medications MedicationDrug Class(es)DatesSig (Normalized)Sig (Original)ferrous sulfate 325 mg oral tablet (1 source)take 1 tablet by mouth once dailyFeroSul 325 (65 Fe) MG take 1 tablet by mouth once daily Oral for 30 Days Not-Takingnitrofurantoin, macrocrystals 25 mg / nitrofurantoin, monohydrate 75 mg oral capsule (4 sources)Nitrofuran AntibacterialStart: 41-04-0226ivey 1 capsule by mouth every twelve hoursMacrobid 100 MG 1 cap(s) orally bid for 7 days Jun, Not-Takingpantoprazole (3 sources)Proton Pump InhibitorPantoprazole Sodium Not-TakingPantoprazole Sodium Active Problems Active Problems Problem ClassificationProblemDateDocumented DateEpisodic/ChronicAbdominal pain (6 sources)Epigastric pain; Translations: [Epigastric pain]Onset: 10-16-2023 EpisodicCardiac dysrhythmias (1 source)Paroxysmal supraventricular gqigdssbkuu13-07-6329MlvawqlKvcoinqoal and other anemia (1 source)Iron deficiency anemia due to blood loss; Translations: [Iron deficiency anemia secondary to blood loss (chronic)]31-79-5246AqervffZvpbdbzctw and other anemia (1 source)Iron deficiency anemia secondary to blood loss (chronic); Translations: [Iron deficiency anemia secondary to blood loss (chronic)]Onset: 00-77-0294IvxrqirAjcthhpgce and other anemia (4 sources)Iron deficiency anemia, unspecified; Translations: [IRON DEFICIENCY ANEMIA UNSPECIFIED]Onset: 26-63-5459CzddbqozHvhwethybf and other anemia (1 source)Iron deficiency ufnerz17-95-7076FtktgjhgUbgvfvpcfg disorders (2 sources)Gastroesophageal reflux disease without esophagitis; Translations: [Gastro-esophageal reflux disease without esophagitis]Onset: 81-76-7696Dzdaroj Malaise and fatigue (1 source)Other fatigue; Translations: [OTHER FATIGUE]Onset: 77-86-3329Irobitby Menstrual disorders (4 sources)Menorrhagia; Translations: [Excessive and frequent menstruation with regular cycle]Onset: 254782-48-7493XomxoseNmnsj gastrointestinal disorders (2 sources)Dysphagia; Translations: [Dysphagia, unspecified]Onset: 10-16-2023 EpisodicOther nutritional; endocrine; and metabolic disorders (1 source)Body mass index 30+ - ygdxibq70-68-3467WxexwfqHayhu nutritional; endocrine; and metabolic disorders (1 source)Ctjxylb00-92-7220FketwjtRkgrf nutritional; endocrine; and metabolic disorders (2 sources)Obese class II; Translations: [Obesity, Class II, BMI 35-39.9]Onset: 019600-62-4086FzneaoqSyxwm screening for suspected conditions (not mental disorders or infectious disease) (5 sources)Other specified abnormal findings of blood chemistry; Translations: [OTH SPEC ABNORMAL FINDINGS BLDCHEM]Onset: 74-11-8793ZfxrkjfkAhyxa upper respiratory infections (1 source)Acute upper respiratory infection, unspecifiedEpisodicScreening and history of mental health and substance abuse codes (3 sources)Personal history of nicotine dependence; Translations: [Standardized adult depression screening tool completed ]Onset: 976473-73-7608Tsjrlbqf Unclassified (1 source)ConsultOnset: 81-02-0692Fvsjylqiaqzp (1 source)Gynecologic ExamOnset: 11-18-2024 Past or Other Problems Problem ClassificationProblemDateDocumented DateEpisodic/ChronicCardiac dysrhythmias (4 sources)Palpitations; Translations: [PALPITATIONS]Onset: 55-60-4103Fuinhodg Immunizations and screening for infectious disease (2 sources)Contact with and (suspected) exposure to other viral communicable diseasesOnset: 10-01-2021 Resolved: 72-50-4495DbeosgqmQqfg disorders (2 sources)Mood disordersOnset: Nausea and vomiting (1 source)Nausea; Translations: [NAUSEA]Onset: 40-68-6243ArymwbgqBrbtsreemvdn (1 source)Contact with and (suspected) exposure to covid-19 Z20.822Unclassified (2 sources)Onset: Viral infection (1 source)COVID-19Onset: 10-01-2021 Resolved: 10-01-2021 Results Test NameValueInterpretationReference RangeFacilityUS PELVIC WITH TRANSVAGINALon 36-92-6239PP PELVIC WITH TRANSVAGINALUS PELVIC WITH TRANSVAGINAL US PELVIC WITH TRANSVAGINAL HISTORY: Pelvic pain COMPARISON: No relevant prior studies available. TECHNIQUE: Transabdominal and transvaginal sonographic evaluation of the pelvis. Transabdominal imaging performed to evaluate for extra adnexal pelvic pathology. Transvaginal imaging performed for better delineation of the adnexal and endometrial contents. Color Doppler used. FINDINGS: Suboptimal evaluation secondary to body habitus. Uterus: 8.7 x 4.1 x 5.7 cm Endometrial Thickness: 1.0 cm Right Ovary: 3.6 x 2.3 x 2.3 cm Left Ovary: 3.5 x 2.2 x 2.0 cm The uterus demonstrates appropriate size and echo pattern. The endometrium is unremarkable. The ovaries demonstrate multiple peripheralized tiny follicles. Normal color flow bilaterally. No adnexal masses demonstrated. No free fluid. IMPRESSION: Polycystic morphology of the ovaries. Otherwise unremarkable sonographic evaluation of the pelvis. Approved by Enio Keen DO on 12/02/2024 2:57 PM Xavier Nash have personally reviewed the image(s) and agree with and/or edited the report Finalized by Xavier Caceres on 12/02/2024 3:09 PMNormalParkview Health [facility] Cytologyon 49-25-3072WmqpraozQpsienTtvZppkmh [facility] HospitalComment on above: Result Comment: [facility] [address] [place] [address] Gynecologic Cytology Consultation Patient Name:YUKI LITTLE:1990 (Age: 34)Gender:FTaken:11/18/2024Reported:11/30/2024Physician(s):Lilly Becerra, MACHINE FOLDER- [facility] ([phone])Copy To: Rec. #:[id number]: #[id number] Final Cytologic Interpretation ThinPrep Pap Test (Cervical): Satisfactory for evaluation. A transformation zone component is present. NEGATIVE FOR INTRAEPITHELIAL LESION OR MALIGNANCY. [facility]/11/30/2024 [place] [address], License number: [id number]. Electronically Signed Out By EMILIANO Pickett(ASCP) Date of Last Menstrual Period: 11/04/24 Other Clinical Conditions: Z01.419 Receiving Barn Custodian exam wo/abn findings Source of Specimen ThinPrep Pap Test (Cervical) Thin Prep Pap (FOOT SETTER) Fee Code(s): G0145 The Pap test is a screening test with an inherent, but low, probability of error. The Pap test is primarily effective for the diagnosis and prevention of squamous cell carcinoma. Regular screening iscritical for prevention. ThinPrep liquid-based slides, which meet the District Sales Coordinator criteria for automated screening, have been screened by the ThinPrep Imaging System (as of 07/21/07) along with an additional manual rescreening by a foundry laborer coreroom and, if indicated, by a pathologist.HIGH RISK HPV W/GENJose E 36-99-3529JEG 31+33+35+39+45+51+52+56+58+59+66+68 DNA FRANCES+probe Ql (Cvx)HPV SPECIMEN TYPE ThinPrep HPV 16 Negative (qualifier value) HPV 18 Negative (qualifier value) OTHER HIGH RISK HPV Negative (qualifier value) HPV types 31,33,35,39,45,52,56,58,59,66 and 68 DNA were undetectable.NormalProMedica Hollywood Community Hospital Of Van NuysComment on above: Performed By: #### [id number] #### [facility] ([id number]) [address], [place] [address] [facility] ([id number]) [address], [address] [place], [place] [address]Gq Panel InformationOrdered By: Talia Avila on 62-13-8171Ehszz Strep (POC)[facility] Office/Clinic Noteon 44-47-1679Rgkurto Surgery Office/Clinic NoteChief Complaint post operative follow up HPI Staff 34 day post operative follow up post EGD with antral biopsy. Continues to experience GERD sx's. Taking Omeprazole 20mg daily. Reports epigastric pain has improved. History of Present Illness s/p EGD with antral biopsy; evidence of chronic antral gastritis, negative for H pylori; small hiatal hernia; some improvement with Omeprazole, 20 mg, but with break thru symptoms requiring tums; occasional dysphagia, symptoms worse with eating. Review of Systems ROS - Provider Constitutional: no fever, no sweats, no weight loss. Eyes: no glasses, no blurred vision, no visual loss. ENMT: no dentures, no hoarseness, no swallowing difficulties, no hearing loss, no ear infection(s),no nose bleeds. Cardiovascular: normal blood pressure, no chest pain, regular heartbeat, no heart murmur. Respiratory: no shortness of breath, no cough, no asthma, no wheezing. Gastrointestinal: no nausea, no vomiting, no diarrhea, no constipation, no blood in stool, no change in bowel habits, no abdominal pain, no hepatitis. Genitourinary: no kidney [...] been reviewed and are negative or noncontributory. Assessment/Plan 1. Gastroesophageal reflux disease (K21.9: Gastro-esophageal reflux disease without esophagitis) small hiatal hernia; increase omeprazole to 40 mg daily; call with problems/questions. Follow-up With When Contact Information DIANNA NAVA, Slade Sorto, FINESSE Only if needed [address] [place] [address]- Additional Instructions: Problem List/Past Medical History Ongoing BMI 34.0-34.9,adult Dysphagia Epigastric pain Gastroesophageal reflux disease Iron deficiency anemia Obesity Paroxysmal supraventricular tachycardia RUQ pain Historical No qualifying data Procedure/Surgical History EGD - esophagogastroduodenoscopy (12/10/2023), Tubal ligation. Medications Nurtec ODT 75 mg oral tablet, disintegrating, 75 mg= 1 tab(s), SubLingual, Once omeprazole 40 mg Cap-DR, 40 mg= 1 cap(s), Oral, Daily, 3 refills ondansetron 4 mg Tab, 4 mg= 1 tab(s), Oral, q8hr Allergies Contrast Dye (Hives) No Known Medication Allergies Social History Alcohol - Denies Alcohol Use, 10/16/2023 Substance Abuse - Denies Substance Abuse, 10/16/2023 Tobacco Former smoker, quit more than 30 days ago Tobacco Use:. Never Smokeless Tobacco Use:. Cigarettes, 0.5 per day. Started age 18.0 Years. Stopped age 23 Years., 10/16/2023 Family History Hypertension: Father. Immunizations Vaccine Date Status Comments influenza virus vaccine, inactivated - Not Given Patient RefusesNormalWayne Healthcare Main CampusComment on above:Result Comment: Electronically Signed By: Slade BUSTAMANTE MD\.br\Date and Time Signed: 12/23/23 16:23 ESTAmbulatory Visit Summaryon 24-43-2505Kwtaknhfob Visit Summary YUKI LITTLE :1990 Visit Date:12/10/2023 Ambulatory Visit Instructions Your Care Team Attending Physician - Slade BUSTAMANTE MD Primary Care Physician - Herb Ellis MD This Is Your Medications List Contact prescribing physician if questions or concerns omeprazole (omeprazole 20 mg Cap-DR) ondansetron (ondansetron 4 mg Tab) rimegepant (Nurtec ODT 75 mg oral tablet, disintegrating) Procedures Performed EGD - esophagogastroduodenoscopy (12/10/2023), Tubal ligation. Medications What How Much When Instructions Unchanged omeprazole (omeprazole 20 mg Cap-DR) 1 Capsules By Mouth Every day Contact prescribing physician if questions or concerns Unchanged ondansetron (ondansetron 4 mg Tab) 1 Tablets By Mouth Every 8 hours Contact prescribing physician if questions or concerns Unchanged rimegepant (Nurtec ODT 75 mg oral tablet, disintegrating) 1 Tablets Sublingual Once Contact prescribing physician if questions or concerns Allergies Contrast Dye (Hives) No Known Medication Allergies Problems Ongoing - Any problem that you are currently receiving treatment for. BMI 34.0-34.9,adult Dysphagia Epigastric pain Gastroesophageal reflux disease Iron deficiency anemia Obesity Paroxysmal supraventricular tachycardia RUQ pain Patient Survey You may receive a survey via text or e-mail asking about your office visit. Please share your experience with us by completing your survey. We appreciate your feedback and thank you for choosing us for your care. [facility] CenterPathology Noteon 11-11-2023 Pathology [id number]#1.00TIFNoTriHealthOperative Reporton 13-95-0390Rwdmhsqwu Report [id number]#1.00TIFFNoTriHealthLab Reportson 64-02-4989Nxw Reports [id number]#1.00TIFFTrumbull Regional Medical CenterConsent for Procedure/Surgeryon 01-44-5819Ganrubx for Procedure/Surgery [id number]#1.00[facility] CenterAmbulatory Visit Summaryon 67-83-7451Qirxhsyeuf Visit Summary YUKI LITTLE :1990 Visit Date:10/16/2023 Ambulatory Visit Instructions Your Care Team Attending Physician - DIANNA NAVA, Slade Sorto Primary Care Physician - Rhonda NAVA, Herb Referring Physician - Herb Ellis MD This [...] you for choosing us for your care. NormalWayne Healthcare Main CampusFacesheeton 36-00-5700Yleiyjkvd [id number]#1.00TIFSt. Mary's Medical CenterRAD - Ultrasound Reporton 49-51-8033ZUS - Ultrasound Report [id number]#1.00TIFSt. Mary's Medical CenterPhysician Referralon 44-34-3305Tkctlclis Referral [id number]#1.00TIFSt. Mary's Medical CenterCOVID + FLU Quick Testingon 16-77-9812MRZR-CoV-2 (COVID-19) RNA FRANCES+probe Ql (Unsp spec)NegativeNort [employer] Other COVID + FLU Quick TestingNegativeNortNanoMedical Systems Other US SINGLE QUAD RT UPPERon 89-19-0821UH SINGLE QUAD RT UPPEREXAMINATION: US SINGLE QUAD RT UPPER HISTORY: Blood [...] Electronically authenticated by: CHAUNCEY SIMONS Date: 2023-03-19 09:40NoProMedica Defiance Regional HospitalPROF 14(COMP METB)on 84-05-2570Safoeyf [Mass/Vol]3.7 g/dLNormal 3.4-5.0The [facility] South Campusment on above:Performed By: #### DDIM #### [facility] [address] [place] [address] Dr. Belgica LlanesAlbumin/Globulin [Mass ratio]0.9 {ratio}NormalThe [facility] on above:Performed By: #### DDIM #### [facility] [address] [address] [address] Belgica Li [Catalytic activity/Vol]83 U/TAvbhof63-144Ilt [facility] on above:Performed By: #### DDIM #### [facility] [address] [address] [address] Belgica Gann [Catalytic activity/Vol]25 U/SDeyrrh95-16Ilk [facility] on above:Performed By: #### DDIM #### [facility] [address] [address] [address] Belgica Lymanon gap [Moles/Vol]15.1 mmol/LNormalThe [facility] Comment on above:Performed By: #### DDIM #### [facility] [address] [address] [address] Belgica LlanesAST [Catalytic activity/Vol]17 U/HMzbevl36-23Vhc [facility] CenterComment on above:Performed By: #### DDIM #### [facility] [address] [address] [address] Belgica LlanesBilirubin [Mass/Vol]0.3 mg/dLNormal0.2-1.0The [facility] Comment on above:Performed By: #### DDIM #### [facility] [address] [place] [address] Dr. Belgica LlanesCalcium [Mass/Vol]9.0 mg/dLNormal8.5-10.1The [facility] Comment on above:Performed By: #### DDIM #### [facility] [address] [address] [address] Belgica LlanesChloride [Moles/Vol]106 mmol/YYglsoq19-462Ksy [facility] Comment on above:Performed By: #### DDIM #### [facility] [address] [address] [address] Belgica LlanesCO2 [Moles/Vol]26.2 mmol/ZJydbuq00.0-32.0The [facility] Comment on above:Performed By: #### DDIM #### [facility] [address] [address] [address] Belgica LlanesCreatinine [Mass/Vol]0.77 mg/dLNormal0.55-1.02The [facility] CenterComment on above:Performed By: #### DDIM #### [facility] [address] [address] [address] Lindo ChangEGFR-AF SOLOMON ISLANDER>60Normal>=60The [facility] CenterComment on above:Performed By: #### DDIM #### [facility] [address] [address] [address] Belgica LepeGFR-NON AF SOLOMON ISLANDER>60Normal>=60The [facility] CenterComment on above:Performed By: #### DDIM #### [facility] [address] [address] [address] Belgica LlanesGlobulin (S) [Mass/Vol]4.0 g/dLNormAdena Fayette Medical CenterComment on above:Performed By: #### DDIM #### [facility] [address] [address] [address] Belgica LlanesGlucose [Mass/Vol]97 mg/uZRnbizc94-236Cey [facility] Comment on above:Performed By: #### DDIM #### [facility] [address] [address] [address] Belgica LlanesPotassium [Moles/Vol]4.3 mmol/LNormal3.5-5.1The [facility] Comment on above:Performed By: #### DDIM #### [facility] [address] [address] [address] Belgica LlanesProtein [Mass/Vol]7.7 g/dLNormal6.4-8.2The [facility] Comment on above:Performed By: #### DDIM #### [facility] [address] [address] [address] Belgica LlanesSodium [Moles/Vol]143 mmol/AXpcicy183-653Lnw [facility] Comment on above:Performed By: #### DDIM #### [facility] [address] [address] [address] Belgica lLanesUrea nitrogen [Mass/Vol]10.0 mg/dLNormal7.0-18.0The [facility] CenterComment on above:Performed By: #### DDIM #### [facility] [address] [address] [address] Belgica LlanesUrea nitrogen/Creatinine [Mass ratio]13.0 mg/mgNormalThTriHealth Good Samaritan HospitalComment on above:Performed By: #### DDIM #### [facility] [address] [address] [address] Belgica AlvarezC AUTO DIFFon 32-53-5150OJGD #0.0 103/ulNormal0.0-0.1The [facility] CenterComment on above:Performed By: #### CBC #### [facility] [address] [place] [address] Dr. Belgica LlanesBasophils/100 WBC (Bld)0.5 %Normal0.2-2.0The [facility] Comment on above:Performed By: #### CBC #### [facility] [address] [place] [address] Dr. Belgica Calabrese #0.1 103/ulNormal0.0-0.7The [facility] CenterComment on above: Performed By: #### CBC #### [facility] [address] [place] [address] Dr. Belgica Lepeosinophils/100 WBC (Bld)2.0 %Normal0.9-7.0The [facility] Comment on above:Performed By: #### CBC #### [facility] [address] [place] [address] Dr. Belgica Leperythrocyte distribution width (RBC) [Ratio]12.4 %Gnhgsk89.0-15.0 The [facility] CenterComment on above:Performed By: #### CBC #### [facility] [address] [place] [address] Dr. Belgica LlanesHematocrit (Bld) [Volume fraction]42.3 %Aebnsl37.0-48.0The [facility] CenterComment on above:Performed By: #### CBC #### [facility] [address] [place] [address] Dr. Belgica LlanesHemoglobin (Bld) [Mass/Vol]13.7 g/eQZaayhb63.0-16.0The [facility] CenterComment on above:Performed By: #### CBC #### [facility] [address] [place] [address] Dr. Belgica Stanley #0.01 10e3/ulNormal0.00-0.03The [facility] CenterComment on above:Performed By: #### CBC #### [facility] [address] [place] [address] Dr. Belgica Stanley %0.2 %Normal0.0-0.5The [facility] CenterComtrinity health [facility] on above: Performed By: #### CBC #### [facility] [address] [place] [address] Dr. Belgica Wells #2.2 103/ulNormal1.2-3.8The [facility] CenterComment on above:Performed By: #### CBC #### [facility] [address] [place] [address] Dr. Belgica Petersonhocytes/100 WBC (Bld)37.1 %Mepsgc01.5-60.0[facility] HospitalComtr[facility] on above:Performed By: #### CBC #### [facility] [address] [place] [address] Dr. Belgica Carrizales DIFF REQNONormalThe [facility] CenterComment on above: Performed By: #### CBC #### [facility] [address] [place] [address] Dr. Belgica Smalls (RBC) [Entitic mass]28.3 tyXekkpe03.7-34.0The [facility] on above:Performed By: #### CBC #### [facility] [address] [place] [address] Dr. Belgica Rapp (RBC) [Mass/Vol]32.4 g/vXKodcra61.9-35.2The [facility] Campusment on above:Performed By: #### CBC #### [facility] [address] [place] [address] Dr. Belgica Rapp (RBC) [Entitic vol]87.4 tZJllono90.0-99.0The [facility]ment on above:Performed By: #### CBC #### [facility] [address] [place] [address] Dr. Belgica Galdamez #0.5 103/ulNormal0.3-0.8The [facility] CenterComment on above:Performed By: #### CBC #### [facility] [address] [place] [address] Dr. Belgica Escotoocytes/100 WBC (Bld)8.3 %Normal1.7-12.0The [facility] Comment on above:Performed By: #### CBC #### [facility] [address] [place] [address] Dr. Belgica Adams #3.1 103/ulNormal1.4-6.5The [facility] CenterComment on above:Performed By: #### CBC #### [facility] [address] [place] [address] Dr. Belgica Vargasutrophils/100 WBC (Bld)51.9 %Zevijs33.0-75.0The [facility] CenterComment on above:Performed By: #### CBC #### [facility] [address] [place] [address] Dr. Belgica LlanesPlatelet mean volume (Bld) [Entitic vol]8.6 fLCritically low 9.5-13.5The [facility] CenterComment on above:Performed By: #### CBC #### [facility] [address] [place] [address] Dr. Belgica LlanesPLT313 103/bnYmmpja983-324Mrt [facility] CenterComment on above: Performed By: #### CBC #### [facility] [address] [place] [address] Dr. Belgica LlanesRBC4.84 106/ulNormal4.20-5.40The [facility] CenterComment on above:Performed By: #### CBC #### [facility] [address] [place] [address] Dr. Belgica LlanesWBC6.0 103/ulNormal4.0-11.0The [facility] CenterComment on above: Performed By: #### CBC #### [facility] [address] [place] [address] Dr. Belgica LlanesFERRITINshelbi 05-14-4159Jpjydamc [Mass/Vol]400.0 ng/mLCritically high6.2-137.0The [facility] CenterComment on above:Performed By: #### IRON, FERR #### [facility] [address] [place] [address] Dr. Belgica Moreno 27-80-9498Qbsi [Mass/Vol]61.0 ug/sHMbxfpk75.0-170.0The [facility] CenterComment on above:Performed By: #### DDIM #### [facility] [address] [place] [address] Dr. Belgica LlanesUS PELVIS AND TRANSVAGon [id number] PELVIS AND TRANSVAG EXAMINATION: US PELVIS AND [...] Electronically authenticated by: CHAUNCEY SIMONS Date: 2022-12-26 09:[address] [place] [address] AUTO DIFFon [id number] #0.0 103/ulNormal0.0-0.1The [facility] CenterComment on above:Performed By: #### CBC #### [facility] [address] [place] [address] Dr. Belgica LlanesBasophils/100 WBC (Bld)0.5 %Normal0.2-2.0The [facility] Comment on above:Performed By: #### CBC #### [facility] [address] [address] [address] Belgica Calabrese #0.1 103/ulNormal0.0-0.7The [facility] CenterComment on above: Performed By: #### CBC #### [facility] [address] [place] [address] Dr. Belgica Lepeosinophils/100 WBC (Bld)1.4 %Normal0.9-7.0The [facility] Comment on above:Performed By: #### CBC #### [facility] [address] [place] [address] Dr. Belgica Leperythrocyte distribution width (RBC) [Ratio]14.0 %Ohvwmz43.0-15.0 The [facility] CenterComment on above:Performed By: #### CBC #### [facility] [address] [place] [address] Dr. Belgica LlanesHematocrit (Bld) [Volume fraction]35.7 %Critically low36.0-48.0 The [facility] CenterComment on above:Result Comment: Previously reported as: 30.8 On 10/08/2022 18:42 By [id number] By: #### CBC #### [facility] [address] [place] [address] Dr. Belgica LlanesHemoglobin (Bld) [Mass/Vol]12.0 g/fXIqiear23.0-16.0The [facility] CenterComment on above:Result Comment: Previously reported as: 12.1 On 10/08/2022 18:42 By [id number] By: #### CBC #### [facility] [address] [place] [address] Dr. Belgica Stanley #0.01 10e3/ulNormal0.00-0.03The [facility] CenterComment on above:Performed By: #### CBC #### [facility] [address] [place] [address] Dr. Belgica Stanley %0.2 %Normal0.0-0.5The [facility] CenterComment on above: Performed By: #### CBC #### [facility] [address] [place] [address] Dr. Belgica Wells #1.7 103/ulNormal1.2-3.8The [facility] CenterComment on above:Performed By: #### CBC #### [facility] [address] [place] [address] Dr. Belgica Petersonhocytes/100 WBC (Bld)29.6 %Bktdtr19.5-60.0The [facility] CenterComment on above:Performed By: #### CBC #### [facility] [address] [place] [address] Dr. Belgica DamonUAL DIFF REQNONormalThe [facility] CenterComment on above: Performed By: #### CBC #### [facility] [address] [place] [address] Dr. Belgica Smalls (RBC) [Entitic mass]28.1 uwJvxaaf17.7-34.0The [facility] CenterComment on above:Result Comment: Previously reported as: 34.8 On 10/08/2022 18:42 By [id number] By: #### CBC #### [facility] [address] [place] [address] Dr. Belgica Rapp (RBC) [Mass/Vol]33.6 g/lAFcgryv73.9-35.2The [facility] CenterComment on above:Result Comment: Previously reported as: 39.3 On 10/08/2022 18:42 By [id number] By: #### CBC #### [facility] [address] [place] [address] Dr. Belgica Rapp (RBC) [Entitic vol]83.6 fHLqzsjr34.0-99.0The [facility] CenterComment on above:Result Comment: Previously reported as: 88.5 On 10/08/2022 18:42 By [id number] By: #### CBC #### [facility] [address] [place] [address] Dr. Belgica Galdamez #0.4 103/ulNormal0.3-0.8The [facility] CenterComment on above:Performed By: #### CBC #### [facility] [address] [place] [address] Dr. Belgica Escotoocytes/100 WBC (Bld)7.2 %Normal1.7-12.0The [facility] Comment on above:Performed By: #### CBC #### [facility] [address] [place] [address] Dr. Belgica VargasUT #3.5 103/ulNormal1.4-6.5The [facility] CenterComment on above:Performed By: #### CBC #### [facility] [address] [place] [address] Dr. Belgica Vargasutrophils/100 WBC (Bld)61.1 %Kgkujx24.0-75.0The [facility] CenterComment on above:Performed By: #### CBC #### [facility] [address] [place] [address] Dr. Belgica LlanesPlatelet mean volume (Bld) [Entitic vol]9.0 fLCritically low 9.5-13.5The [facility] CenterComment on above:Performed By: #### CBC #### [facility] [address] [place] [address] Dr. Belgica LlanesPLT323 103/qvVyngak603-753Xzm [facility] CenterComment on above: Performed By: #### CBC #### [facility] [address] [place] [address] Dr. Belgica LlanesRBC3.48 106/ulCritically low4.20-5.40The [facility] CenterComment on above:Performed By: #### CBC #### [facility] [address] [place] [address] Dr. Belgica LlanesWBC5.7 103/ulNormal4.0-11.0The [facility] CenterComment on above: Performed By: #### CBC #### [facility] [address] [place] [address] Dr. Belgica Pitt-DIMERon 38-73-3197G-DIMER0.21 mg/L FEUNormal<=0.59The [facility] on above:Performed By: #### DDIM #### [facility] [address] [place] [address] Dr. Belgica LlanesD-DIMER COMMENTSSEE [facility] on above:Result Comment: Increases in D-Dimer concentration observed with thromboembolic events [...] stress, and generalized hospitalization. Performed By: #### DDIM #### [facility] [address] [place] [address] Dr. Belgica Moreno 20-24-3788Fatg [Mass/Vol]19.0 ug/dLCritically low 50.0-170.0The [facility] on above:Performed By: #### IRON #### [facility] [address] [place] [address] Dr. Belgica LlanesPREJustyn HCG QUALon 46-91-3851AOSTIMJZT, QUALNegativeNormalNEGATIVE [facility] on above:Performed By: #### DDIM #### [facility] [address] [place] [address] Dr. Belgica LlanesPROF 14(COMP METB)on 01-69-3447Yymcheg [Mass/Vol]3.7 g/dLNormal 3.4-5.0The [facility] on above:Performed By: #### CMP, HSTROPN, TSH #### [facility] [address] [place] [address] Dr. Belgica LlanesAlbumin/Globulin [Mass ratio]1.0 {ratio}NormalThe [facility] on above:Performed By: #### CMP, HSTROPN, TSH #### [facility] [address] [place] [address] Dr. Belgica CorbettP [Catalytic activity/Vol]87 U/VErarmh38-489Wbu [facility] CenterComment on above:Performed By: #### CMP, HSTROPN, TSH #### [facility] [address] [address] [address] Belgica Gann [Catalytic activity/Vol]9 U/LCritically adw95-63Gev [facility] CenterComment on above:Performed By: #### CMP, HSTROPN, TSH #### [facility] [address] [place] [address] Dr. Belgica Lymanon gap [Moles/Vol]10.8 mmol/LNormalMem[facility] Comment on above:Performed By: #### CMP, HSTROPN, TSH #### [facility] [address] [place] [address] Dr. Belgica LlanesAST [Catalytic activity/Vol]11 U/LCritically lto18-37Vdv [facility] CenterComment on above:Performed By: #### CMP, HSTROPN, TSH #### [facility] [address] [place] [address] Dr. Belgica LlanesBilirubin [Mass/Vol]0.2 mg/dLNormal0.2-1.0[facility] Comment on above:Performed By: #### CMP, HSTROPN, TSH #### [facility] [address] [place] [address] Dr. Belgica LlanesCalcium [Mass/Vol]8.6 mg/dLNormal8.5-10.1[facility] Comment on above:Performed By: #### CMP, HSTROPN, TSH #### [facility] [address] [place] [address] Dr. Belgica LlanesChloride [Moles/Vol]103 mmol/PBcmsyi85-381MohMemorial [facility] Comment on above:Performed By: #### CMP, HSTROPN, TSH #### [facility] [address] [place] [address] Dr. Belgica LlanesCO2 [Moles/Vol]26.7 mmol/WVgsulx52.0-32.0[facility] Comment on above:Performed By: #### CMP, HSTROPN, TSH #### [facility] [address] [place] [address] Dr. Belgica LlanesCreatinine [Mass/Vol]0.85 mg/dLNormal0.55-1.02The [facility] CenterComment on above:Performed By: #### CMP, HSTROPN, TSH #### [facility] [address] [place] [address] Dr. Belgica LepeGFR-AF SOLOMON ISLANDER>60Normal>=60The [facility] CenterComment on above:Performed By: #### CMP, HSTROPN, TSH #### [facility] [address] [place] [address] Dr. Belgica Garay-NON AF SOLOMON ISLANDER>60Normal>=60The [facility] CenterComment on above:Performed By: #### CMP, HSTROPN, TSH #### [facility] [address] [place] [address] Dr. Belgica LlanesGlobulin (S) [Mass/Vol]3.8 g/dLNormalThe [facility] CenterComment on above:Performed By: #### CMP, HSTROPN, TSH #### [facility] [address] [place] [address] Dr. Belgica LlanesGlucose [Mass/Vol]97 mg/qVJxjvif94-519QcoMemorial Health System [facility] Comment on above:Performed By: #### CMP, HSTROPN, TSH #### [facility] [address] [place] [address] Dr. Belgica LlanesPotassium [Moles/Vol]3.5 mmol/LNormal3.5-5.1[facility] Comment on above:Performed By: #### CMP, HSTROPN, TSH #### [facility] [address] [place] [address] Dr. Belgica LlanesProtein [Mass/Vol]7.5 g/dLNormal6.4-8.2The [facility] Comment on above:Performed By: #### CMP, HSTROPN, TSH #### [facility] [address] [place] [address] Dr. Belgica Chandradium [Moles/Vol]137 mmol/TCsrkaw365-955Awy [facility] Comment on above:Performed By: #### JOHN HSTROPN, TSH #### [facility] [address] [address] [address] Belgica Watson nitrogen [Mass/Vol]9.0 mg/dLNormal7.0-18.0The [facility] CenterComment on above:Performed By: #### CMP HSTROPN, TSH #### [facility] [address] [address] [address] Belgica LlanesUrea nitrogen/Creatinine [Mass ratio]10.6 mg/mgNormalThe [facility] CenterComment on above:Performed By: #### JOHN HSTROPN, TSH #### [facility] [address] [place] [address] Dr. Belgica Barrett, HIGH SENSITIVITYon 25-04-6688QGZXIY4.5 pg/mLNormal 4.0-51.3The [facility] CenterComment on above:Result Comment: CUT-OFF POINTS HAVE BEEN ESTABLISHED BASED ON THE FOURTH UNIVERSAL DEFINITIONS OF MYOCARDIAL INFARCTION. THE UPPER REFERENCE LIMIT (URL) OF TROPONIN, DEFINED THE 99TH PERCENTILE OF cTnI DISTRIBUTION IN A REFERENCE POPULATION, HAS BEEN CONFIRMED THE DECISION THRESHOLD FOR MO DIAGNOSIS.Performed By: #### JOHN HSTROPN, TSH #### [facility] [address] [place] [address] Dr. Belgica Cabrera 19-56-3733NGC5.228 uIU/mLNormal0.358-3.740The [facility] CenterComment on above:Performed By: #### CMP HSTROPN, TSH #### [facility] [address] [place] [address] Dr. Belgica LlanesXR CHEST 1 Von [id number] CHEST 1 VEXAM: XR CHEST 1 V, 10/08/2022 HISTORY: SHORTNESS OF BREATH COMPARISON: Previous x-ray from 12/01/2021 and 10/05/2021 TECHNIQUE: Portable AP upright x-ray of the chest. FINDINGS: Heart size within normal limits. No hilar or mediastinal enlargement. The lungs and costophrenic angles are clear. No acute osseous findings. No significant interval change. IMPRESSION: No acute cardiopulmonary findings. Electronically authenticated by: MARITZA GORE Date: 2022-10-08 19:41NormalThe [facility] CenterCOVID Quick Testingon 47-31-7927KvsvppNnesvehdAlpwa [employer] Other INSULINon 59-15-7700Zojtppw64.1 uIU/mLNormal2.6-24.9 The [facility] CenterComment on above:Performed By: #### DDIM #### [facility] [address] [place] [address] Dr. Belgica Edward AUTO DIFFon 39-43-2574TKAQ #0.0 103/ulNormal0.0-0.1The [facility] CenterComment on above:Performed By: #### CBC #### [facility] [address] [place] [address] Dr. Belgica LlanesBasophils/100 WBC (Bld)0.6 %Normal0.2-2.0[facility] Comment on above:Performed By: #### CBC #### [facility] [address] [place] [address] Dr. Belgica Calabrese #0.1 103/ulNormal0.0-0.7The [facility] CenterComment on above: Performed By: #### CBC #### [facility] [address] [place] [address] Dr. Belgica Lepeosinophils/100 WBC (Bld)2.7 %Normal0.9-7.0[facility] Comment on above:Performed By: #### CBC #### [facility] [address] [place] [address] Dr. Belgica Leperythrocyte distribution width (RBC) [Ratio]14.1 %Ohjqxk13.0-15.0 [facility] HospitalComment on above:Performed By: #### CBC #### [facility] [address] [place] [address] Dr. Belgica LlanesHematocrit (Bld) [Volume fraction]33.7 %Critically low36.0-48.0 The [facility] CenterComment on above:Performed By: #### CBC #### [facility] [address] [place] [address] Dr. Belgica LlanesHemoglobin (Bld) [Mass/Vol]12.4 g/mLXbhkul95.0-16.0The [facility] CenterComment on above:Performed By: #### CBC #### [facility] [address] [place] [address] Dr. Belgica Stanley #0.01 10e3/ulNormal0.00-0.03The [facility] CenterComment on above:Performed By: #### CBC #### [facility] [address] [place] [address] Dr. Belgica Stanley %0.3 %Normal0.0-0.5The [facility] CenterComment on above: Performed By: #### CBC #### [facility] [address] [place] [address] Dr. Belgica Wells #1.3 103/ulNormal1.2-3.8The [facility] CenterComment on above:Performed By: #### CBC #### [facility] [address] [place] [address] Dr. Belgica Petersonhocytes/100 WBC (Bld)37.8 %Tschjm72.5-60.0The [facility] CenterComment on above:Performed By: #### CBC #### [facility] [address] [place] [address] Dr. Belgica DamonUAL DIFF REQNONormalThe [facility] CenterComment on above: Performed By: #### CBC #### [facility] [address] [place] [address] Dr. Belgica Smalls (RBC) [Entitic mass]32.6 wfIjlobt27.7-34.0The [facility] CenterComment on above:Performed By: #### CBC #### [facility] [address] [place] [address] Dr. Belgica RappHC (RBC) [Mass/Vol]36.8 g/dLCritically high29.9-35.2The [facility] CenterComment on above:Performed By: #### CBC #### [facility] [address] [place] [address] Dr. Belgica Aguirre (RBC) [Entitic vol]88.7 uKCkljrh42.0-99.0The [facility] CenterComment on above:Performed By: #### CBC #### [facility] [address] [place] [address] Dr. Belgica Galdamez #0.2 103/ulCritically low0.3-0.8The [facility] CenterComment on above:Performed By: #### CBC #### [facility] [address] [place] [address] Dr. Belgica Escotoocytes/100 WBC (Bld)6.3 %Normal1.7-12.0The [facility] Comment on above:Performed By: #### CBC #### [facility] [address] [place] [address] Dr. Belgica Adams #1.7 103/ulNormal1.4-6.5The [facility] CenterComment on above:Performed By: #### CBC #### [facility] [address] [place] [address] Dr. Belgica Vargasutrophils/100 WBC (Bld)52.3 %Bmxozy31.0-75.0The [facility] CenterComment on above:Performed By: #### CBC #### [facility] [address] [place] [address] Dr. Belgica Walterlet mean volume (Bld) [Entitic vol]9.1 fLCritically low 9.5-13.5The [facility] CenterComment on above:Performed By: #### CBC #### [facility] [address] [place] [address] Dr. Belgica VasquezT272 103/kiCpnqzw495-749Awq [facility] CenterComment on above: Performed By: #### CBC #### [facility] [address] [place] [address] Dr. Belgica LlanesRBC3.80 106/ulCritically low4.20-5.40The [facility] CenterComment on above:Performed By: #### CBC #### [facility] [address] [place] [address] Dr. Belgica LlanesWBC3.3 103/ulCritically low4.0-11.0The [facility] CenterComment on above:Performed By: #### CBC #### [facility] [address] [place] [address] Dr. Belgica LlanesFRHORACE THYROXINE INDEX T7on 46-64-8960UMY8.07Itoauq9.30-4.50The [facility] CenterComment on above:Performed By: #### DDIM #### [facility] [address] [place] [address] Dr. Belgica LlanesT3U35.0 %Xkpmnk67.0-39.0The [facility] CenterComment on above: Performed By: #### DDIM #### [facility] [address] [place] [address] Dr. Belgica LlanesT4 [Mass/Vol]6.70 ug/dLNormal4.80-13.90The [facility] Comment on above:Performed By: #### DDIM #### [facility] [address] [place] [address] Dr. Belgica LlanesGLYCOHEMOGLOBIN A1Con 49-49-3411AAZ RECOMMENDATIONSEE BELOWNormal The [facility] CenterComment on above:Result Comment: ADA RECOMMENDED LIMIT 4.0 - 6.0 ADA THERAPEUTIC TARGET < 7.0 ACTION SUGGESTED > 7.0Performed By: #### A1C #### [facility] [address] [place] [address] Dr. Belgica LlanesGlucose [Mass/Vol]94 mg/eKBcbtrb53-509Knu [facility] Comment on above:Performed By: #### A1C #### [facility] [address] [place] [address] Dr. Belgica LlanesPerformed By: #### DDIM #### [facility] [address] [place] [address] Dr. Belgica LlanesHbA1c (Bld) [Mass fraction]4.9 %Normal4.5-6.2The [facility] CenterComment on above:Performed By: #### A1C #### [facility] [facility] [address] [place] [address] Dr. Belgica Moreno 53-66-8701Cbsl [Mass/Vol]69.0 ug/iMEatyrk10.0-170.0The [facility] CenterComment on above:Performed By: #### DDIM #### [facility] [address] [place] [address] Dr. Belgica LlanesLIPID PROFILEon 46-77-0347SDER-HDL RATIO NORMSEE [facility] HospitalComment on above:Result Comment: 3.3 - 4.4 LOW RISK 4.4 - 7.1 AVERAGE RISK 7.1 - 11.0 MODERATE RISK >11.0 HIGH RISKPerformed By: #### DDIM #### [facility] [address] [place] [address] Dr. Belgica Porrasesterol [Mass/Vol]151 mg/dLNormal<=200The [facility] Comment on above:Performed By: #### DDIM #### [facility] [address] [place] [address] Dr. Belgica LlanesCholesterol in HDL [Mass/Vol]49 mg/dAEnfoxq43-02Urb [facility] CenterComment on above:Performed By: #### DDIM #### [facility] [address] [place] [address] Dr. Belgica Porrasesterol in LDL [Mass/Vol]84.8 mg/dLCleveland Clinic Akron GeneralComtrinity health [facility] on above:Performed By: #### DDIM #### [facility] [address] [place] [address] Dr. Belgica Porrasesterkacey.total/Cholesterol in HDL [Mass ratio]3.1 {ratio} NormalThe [facility] Medical CenterComment on above:Performed By: #### DDIM #### [facility] [address] [place] [address] Dr. Belgica Allen NORMAL> or = 60 mg/dl - LOW CARDIOVASCULAR RISK <40 mg/dl - HIGH CARDIOVASCULAR RISKCleveland Clinic Akron GeneralComment on above:Performed By: #### DDIM #### [facility] [address] [place] [address] Dr. Belgica LlanesLDL CALC NORMALSEE BELOWNoProMedica Defiance Regional HospitalComment on above:Result Comment: <100 mg/dl OPTIMAL 100 - 129 mg/dl NEAR OR ABOVE OPTIMAL 130 - 159 mg/dl BORDERLINE HIGH 160 - 189 mg/dl HIGH >190 mg/dl VERY HIGH Performed By: #### DDIM #### [facility] [address] [place] [address] Dr. Belgica LlanesTriglyceride [Mass/Vol]86 mg/dLNormal<=150The [facility] Comment on above:Performed By: #### DDIM #### [facility] [address] [place] [address] Dr. Belgica NaranjoLDL CALC17.2 mg/dLNoProMedica Defiance Regional HospitalComment on above: Performed By: #### DDIM #### [facility] [address] [place] [address] Dr. Belgica LlanesPROF 14(COMP METB)on 99-88-7830Dwiwkpy [Mass/Vol]3.6 g/dLNormal 3.4-5.0The [facility] CenterComment on above:Performed By: #### DDIM #### [facility] [address] [place] [address] Dr. Belgica LlanesAlbumin/Globulin [Mass ratio]1.0 {ratio}NormalThe [facility] CenterComment on above:Performed By: #### DDIM #### [facility] [address] [place] [address] Dr. Belgica Li [Catalytic activity/Vol]71 U/VExryvn87-499Dgb [facility] CenterComment on above:Performed By: #### DDIM #### [facility] [address] [place] [address] Dr. Belgica Gann [Catalytic activity/Vol]23 U/JUgiqnc20-64Xrv [facility] CenterComment on above:Performed By: #### DDIM #### [facility] [address] [address] [address] Belgica Kruger gap [Moles/Vol]10.8 mmol/LNormalThe [facility] Comment on above:Performed By: #### DDIM #### [facility] [address] [address] [address] Belgica LlanesAST [Catalytic activity/Vol]12 U/LCritically lyj64-89Skn [facility] CenterComment on above:Performed By: #### DDIM #### [facility] [address] [address] [address] Belgica LlanesBilirubin [Mass/Vol]0.4 mg/dLNormal0.2-1.0[facility] Comment on above:Performed By: #### DDIM #### [facility] [address] [address] [address] Belgica LlanesCalcium [Mass/Vol]8.7 mg/dLNormal8.5-10.1[facility] Comment on above:Performed By: #### DDIM #### [facility] [address] [address] [address] Belgica LlanesChloride [Moles/Vol]106 mmol/RVfqmeo67-643GilMemorial Health System [facility] Comment on above:Performed By: #### DDIM #### [facility] [address] [address] [address] Belgica LlanesCO2 [Moles/Vol]29.2 mmol/HMjesjc16.0-32.0The [facility] Comment on above:Performed By: #### DDIM #### [facility] [address] [address] [address] Belgica LlanesCreatinine [Mass/Vol]0.80 mg/dLNormal0.55-1.02The [facility] CenterComment on above:Performed By: #### DDIM #### [facility] [address] [address] [address] Lindo ChangEGFR-AF SOLOMON ISLANDER>60Normal>=60The [facility] Medical CenterComment on above:Performed By: #### DDIM #### [facility] [address] [address] [address] Belgica LepeGFR-NON AF SOLOMON ISLANDER>60Normal>=60The [facility] CenterComment on above:Performed By: #### DDIM #### [facility] [address] [address] [address] Belgica LlanesGlobulin (S) [Mass/Vol]3.7 g/dLNormAdena Fayette Medical CenterComment on above:Performed By: #### DDIM #### [facility] [address] [address] [address] Belgica LlanesPotassium [Moles/Vol]4.0 mmol/LNormal3.5-5.1The [facility] Comment on above:Performed By: #### DDIM #### [facility] [address] [address] [address] Belgica LlanesProtein [Mass/Vol]7.3 g/dLNormal6.4-8.2The [facility] Comment on above:Performed By: #### DDIM #### [facility] [address] [address] [address] Belgica LlanesSodium [Moles/Vol]142 mmol/HDusyoh153-925Kop [facility] Comment on above:Performed By: #### DDIM #### [facility] [address] [address] [address] Belgica LlanesUrea nitrogen [Mass/Vol]8.0 mg/dLNormal7.0-18.0The [facility] CenterComment on above:Performed By: #### DDIM #### [facility] [address] [address] [address] Belgica LlanesUrea nitrogen/Creatinine [Mass ratio]10.0 mg/mgNoProMedica Defiance Regional HospitalComment on above:Performed By: #### DDIM #### [facility] [address] [address] [address] Belgica Cabrera 12-48-5291NTF4.206 uIU/mLNormal0.358-3.740The Dwight HospitalComment on above:Performed By: #### DDIM #### [facility] [address] [address] [address] Belgica Bowles Quick Testingon 35-74-7404IlbmbxJcnnngjrAoffe Coast [employer] Other Quick Fluon 08-26-9565IMCAT Ab CF (S) [Titer]Negative [employer] Other FLUBV Ab CF (S) [Titer]NegativeAdel [employer] Other COVID Quick Testingon 95-25-8612KdktqqPporvbqxKmqhc [employer] Other Urine Cultureon 11-90-9449Byhwfdta identified Cx Nom (U)Reason for Exam Dysuria Urine Reason for Exam: Dysuria : Urine <9,000 colonies/ml mixed bacterial skin contaminants 2 Days PERFORMED BY: [place] [address] PATHOLOGIST MANAGER IMAGING JUS PORRAS M.D.[facility] Valley Medical CenterComment on above: Performed By: #### CUU #### [address] Vital Signs Date TimeVital SignValuePerforming HdrrnnhpnWhvsznbo94-02-1175 14:12-0500Body uqhtkb212.3 cmTanya Abdul DO Work Phone: [facility] CenterMobiTV Sthfnr36-76-8373 14:12-0500Body mass index (BMI) [Ratio]35.65 kg/b9Imbnw [employer] DO Work Phone: [employer]02-11-2025 14:12-0500Body qunnat227.5 kgTanya Abdul DO Work Phone: [facility] CenterZtail02-11-2025 14:12-0500Diastolic blood cmpcqene86 mm[Hg]Dionne [employer] DO Work Phone: [employer]02-11-2025 14:12-0500Systolic blood aqsavnva375 mm[Hg]Dionne Abdul DO Work Phone: [facility]01-15-2025 13:28-0500Body sqbpys354.3 Bishnu Mcbrideotzer MACHINE FOLDER-NETWORK OPERATIONS LEAD Work Phone: [facility] [employer] Jgbens87-79-0712 13:28-0500Body mass index (BMI) [Ratio]35 kg/m2Lisa Krotzer MACHINE FOLDER-NETWORK OPERATIONS LEAD Work Phone: [facility]01-15-2025 13:28-0500Body ivfjce718.5 kgLisa Krotzer MACHINE FOLDER-NETWORK OPERATIONS LEAD Work Phone: [facility]01-15-2025 13:28-0500Diastolic blood ugxcrnek04 mm[Hg]Lilly Krotzer MACHINE FOLDER-NETWORK OPERATIONS LEAD Work Phone: [facility]01-15-2025 13:28-0500Systolic blood ynaqobgt210 mm[Hg]Lilly Krotzer MACHINE FOLDER-NETWORK OPERATIONS LEAD Work Phone: [facility]05-04-2024 14:10-0400Body yjmqxw519.26 [facility] 14:10-0400Body mass index (BMI) [Ratio]33 kg/s3BgjlakpvlBerger Hospital05-04-2024 14:10-0400Body xamvregjobe25.6 [degF][facility]05-04-2024 14:10-0400Body hygyxm387.32 kgBer[facility]05-04-2024 14:10-0400Heart rate56 /[facility]05-04-2024 14:10-0400Respiratory rate18 /[facility]05-04-2024 14:10-9757OoC5% (BldA) [Mass fraction]98 %[facility] 10-16-2023 13:20-0500Blood Pressure LocationMichael NILL General Surgery Ddrimuyb36-01-5020 13:20-0500Diastolic blood uujtgzea28 mm[Hg]Slade NILL [facility] Wmnamean71-61-9121 13:20-0500Heart rate 72 /minMichael NILL [facility] Ittdyqfa41-10-4019 13:20-0500 Respiratory rate15 /minMichael NILL [facility] Lugijfbj00-79-9612 13:20-0500Systolic blood kcpgyfvu171 mm[Hg]Slade NILL [facility] Useeqphm30-35-0256 16:15-0400Body bipxym547.26 cmSmiley Harrell Other [facility] Other 10-23-2023 16:15-0400Body mass index (BMI) [Ratio] 33.52 kg/f3OcdpurSmiley Harrell Other [employer] Other 10-23-2023 16:15-0400Body hrdvhphexxl63.4 [degF]Smiley Harrell Other [employer] Other 10-23-2023 16:15-0400Body uswsza131.97 kgSmiley Harrell Other [facility] Center[facility] Other 10-23-2023 16:15-0400Diastolic blood naacybzv67 mm[Hg] Smiley Harrell Other [employer] Other 10-23-2023 16:15-0400Respiratory rate18 /minSmiley Harrell Other [employer] Other 10-23-2023 16:15-3247QaK4% (BldA) [Mass fraction]97 % Smiley Harrell Other [employer] Other 10-23-2023 16:15-0400Systolic blood auuwfuhs713 mm[Hg] Smiley Harrell Other [employer] Other 01-09-2022 14:00-0500Body pauoyq505.26 cmAmber Ginty Other [employer] Other 01-09-2022 14:00-0500Body mass index (BMI) [Ratio] 30.71 kg/k4Vrihh Ginty Other [employer] Other 01-09-2022 14:00-0500Body fbhmlhtllqa24.1 [degF]Caterina Ginty Other [employer] Other 01-09-2022 14:00-0500Body pmastp49.35 kgAmber Ginty Other [employer] Other 01-09-2022 14:00-0500Respiratory rate20 /minAmber Ginty Other [employer] Other 01-09-2022 14:00-4728YkT1% (BldA) [Mass fraction]99 % Caterina Ginty Other [employer] Other 11-28-2021 11:00-0500Body lecbvx931.26 Johnamelheraclio Parada Other [employer] Other 11-28-2021 11:00-0500Body mass index (BMI) [Ratio] 30.27 kg/k9Pijczn Karma Other [employer] Other 11-28-2021 11:00-0500Body pfzmowspjjp60.9 [degF]Lisandra Parada Other [employer] Other 11-28-2021 11:00-0500Body bjilnn27.99 kgLisandra Parada Other [employer] Other 11-28-2021 11:00-0500Respiratory rate18 /minLisandra Parada Other [employer] Other 11-28-2021 11:00-5028KhN6% (BldA) [Mass fraction]99 % Lisandra Parada Other [employer] Other Encounters Encounter DateEncounter TypeCare ProviderFacilityStart: 12-15-2024 End: 34-71-6933Gbxdif outpatient visit 15 minutesDionne Abdul DO Work Phone: [facility]/GynecologyComment on above:Menorrhagia with regular cycle (Primary Dx); Dysmenorrhea; Iron deficiency anemia due to chronic blood lossStart: 12-15-2024 End: 71-13-9874qgkrynpqbuRFHDD L WATSONOhioHealth [facility] Ambulatory PPGStart: 12-02-2024 End: 98-51-8857bzgxzxvdcrDLAZ M KROTZERKettering Health Prebletart: 11-18-2024 End: 69-22-0726Zonwfdr preventive medicine new pt age 18-39yrsLilly eBcerra MACHINE FOLDER-NETWORK OPERATIONS LEAD Work Phone: [facility]s/GynecologyComment on above:Well woman exam with routine gynecological exam (Primary Dx); Standardized adult depression screening tool completed; Pelvic pain; Cervical smear, as part of routine gynecological examinationStart: 11-18-2024 End: 41-27-8710Zctdhig encounter procedureLilly Becerra MACHINE FOLDER-NETWORK OPERATIONS LEAD Work Phone: [facility] Work Phone: Start: 11-18-2024 End: 38-50-3577syqtfadbxyVPYF M KRTRACEYChatuge Regional HospitalStart: 11-18-2024 End: 28-70-6483Sbbjhyrle for gynecological examination (general) (routine) without abnormal findingsLilly Becerra MACHINE FOLDER-NETWORK OPERATIONS LEAD Work Phone: [facility] Hospitaltart: 11-18-2024 End: 44-97-2913pxjizrchpqBFRI M KROTZERKettering Health Prebletart: 63-38-8795Gtteousse for gynecological examination (general) (routine) without abnormal findingsMINISA MCBRIDETRACEYKettering Health Prebletart: 03-07-2024 End: 72-78-0812mrcuxrvrkyLuvnxtkiyLouis Stokes [facility] Work Phone: Start: 03-07-2024 End: 74-63-2047Hgpwjnv encounter procedureCape [facility] [place] Work Phone: Start: 12-10-2023 End: 38-28-9344jwugmhmmkoXguojpz R NILLFacility:JOHN BellevueStart: 11-06-2023 End: 88-75-8115gjhmwyywglSqvgvyn R NILLFacility:CD:[id number]: 10-16-2023 End: 10-10-7148unepvytnhdFhnlvch R NILLFacility: JanelleueStart: 10-16-2023 End: 94-59-4220Jtljntu encounter procedureMichael R NILL General Surgery Nill/[facility] [place] Start: 22-03-1710cxizvfvrjeFdffyhl NILLFacility:JOHN AlexisevueStart: 08-26-2023 End: 94-13-2426ctjyleeuctNrapbn Ruttino Other [employer] Other Start: 48-06-7555Qedxbp outpatient visit 15 minutes Smiley CalloFPG Urgent Care ClydeStart: 03-19-2023 End: 77-15-7578xtlbigazwvAO HERB HOY .Facility:V9Afuri: 02-27-2023 End: 86-69-2731uemtgjzolrMC HERB HOY .Facility:J8Hootc: 02-25-2023 End: 43-44-8468ozbmiwjqwuHS HERB HOY .Facility:K3Fejgk: 12-25-2022 End: 52-77-8233rhnkygvyreGB HERB HOY .Facility:V1Ltmgd: 12-25-2022 End: 80-35-0599hberbvearwUR HERB HOY .Facility:V0Jonkh: 10-08-2022 End: 08-65-3709gzupngbpbnVB ANA CUNNINGHAM .Facility:E6Ckiri: 07-06-2022 ambulatoryDR HERB HOY .Facility:O1Qjdaj: 06-22-2022 End: 01-87-5601mvkjmsewtvNemyaaled Neva Other [employer] Other Start: 36-70-0054Ucrwwsauv for other preprocedural examinationStephanie BreaultFPG Urgent Care ClydeStart: 61-31-7394Qfptmz outpatient visit 5 minutesStephanie BreaultFPG Urgent Care ClydeStart: 51-89-7393Iyomdppjo for general adult medical examination without abnormal findingsDR HERB HOY .[facility] Hospitaltart: 05-31-2022 End: 16-82-3643gnjaqcfktoDJ HERB HOY .Facility:U8Faqdw: 05-31-2022 End: 10-01-1885Izgtatfwp for general adult medical examination without abnormal findingsDR HERB HOY .Facility:H4Dcfdf: 11-12-2021 End: 83-17-3170sawwjpdwqfBqkvv Ginty Other [employer] Other Start: 29-69-2812Kvmhwb outpatient visit 15 minutes Caterina GintyFPG Urgent Care ClydeStart: 10-01-2021 End: 13-67-9661jurzbjfpvuLwsjie Dymond Other [facility] [employer] Other Start: 11-23-3794Qdqtkw outpatient visit 15 minutes Lisandra Meggan [facility] Procedures DateProcedureProcedure DetailPerforming ClinicianStart: 18-59-3365Iefrc depression screening assessmentLisa Penny MACHINE FOLDER-NETWORK OPERATIONS LEAD Work Phone: Start: 66-11-7189Ngneihzcbzh observation [Identifier] in Cervix by Cyto Roberth Abdul DO Work Phone: Start: 45-10-5512Iorzp Strep (POC)Ligation of fallopian tubeMichael NILL Plan of Treatment DateCare ActivityDetailAuthorStart: 54-62-2634Pgjqbojdj for malignant neoplasm of cervixPap SmearProAtmore Community Hospital Health SystemStart: 75-37-6708Fanfnhu Screening Tobacco ScreeningSt. Elizabeth Hospital Health SystemStart: 17-07-5055Xgcfr BMI Follow Up PlanAdult BMI Follow Up PlanOhioHealth Shelby Hospital SystemStart: 69-91-9455Yfxrf BMI ScreeningAdult BMI ScreeningProChillicothe Hospital SystemStart: 49-51-1831Kfiikpnray ScreeningDepression ScreeningSt. Elizabeth Hospital Health SystemStart: 31-20-8069Ifcplrn ScreeningTobacco ScreeningOhioHealth Shelby Hospital SystemStart: 12-15-2024 End: 81-22-6147Xqjznmp encounter puzflvwpb95/11/2025 2:00 PM EST Office Visit [facility] [address] [place] [address] Dionne Abdul DO [address] [place], [place] [id number] [facility]etrics/GynecologyStart: 11-18-2024 End: 46-70-8727Mzskdcpvnljlz procedure, preparation of smear, genital sourcePap Smear Pathology and Cytology Routine Cervical smear, as part of routine gynecological examination Expected: 11/18/2024 (Approximate), Expires: 11/18/2025[facility] SystemComment on above:Expected: 11/18/2024 (Approximate), Expires: 11/18/2025Start: 11-18-2024 End: 75-12-3466OY Pelvis transabdominal and transvaginalUltrasound pelvic with transvaginal Imaging Routine Pelvic pain Expected: 11/18/2024, Expires: 11/18[facility] Private HospitalKanari Work Phone: Comment on above:Expected: 11/18/2024, Expires: 11/18/2025Start: 83-83-0094Jbrcdbbpe vaccinationInfluenza VaccineBlue Ridge Regional Hospitaltart: 85-47-8442Edlrlpwfq for malignant neoplasm of cervixPap SmearBlue Ridge Regional Hospitaltart: 40-31-7220FFyV,Tdap and Td Vaccines (1 - Tdap)DTaP,Tdap and Td Vaccines (1 - Tdap)[facility] End: 22-65-1542Datn risk HPV w/genoHigh risk HPV w/charly Lab Routine Cervical smear, as part of routine gynecological examination 1 Occurrences starting 11/18/2024 until 11/18/2025[facility] ClinicComment on above:1 Occurrences starting 11/18/2024 until 11/18/2025 Immunizations Immunization DateImmunizationNotesCare ProviderFacilityNEGATED: Highlighted row has not occurred!17-17-1849ldzmaxaui virus vaccine, unspecified formulation Slade BUSTAMANTE [facility] [place] Payers DatePayer CategoryPayerPolicy [id number] [facility] Managed Care - OtherANTHEM Member Subscriber Plan / Payer (Effective 2024-Present) Name: Yuki Little Relation to Subscriber: Self Name: MikiYuki ulrich Meeta Payer ID: [id number] (NAIC) Type: Not on file [id number] [place] [id number] [id number] 2.16.840.1.721832.3.57[id number] 2.16.840.1.310011.3.57[id number] 2.16.840.1.791474.3.57[id number] 2.16.840.1.575708.3.57[id number] 2.16.840.1.324965.3.57[id number] 2.16840.1.594842.3.57[id number] 2.16.840.1.053960.3.57[id number] 2.16840.1.403483.3.57[id number] 2.16.840.1.689351.3.57[id number] 2.16840.1.196934.3.57[id number] 2.16.840.1.625190.3.57[id number] 2.16.840.1.308076.3.57[id number] 2.16.840.1.956873.3.579.[id number] 2.16840.1.118653.3.57[id number] 2.16.840.1.857531.3.579.2.809737-53-3988Pmth Cross Blue [id number] 2.16.840.8.312214.58355327-02-2998Bwyp-[id number] Social History DateTypeDetailFacilityUnknown if ever smokedNort [employer] Other Start: 11-18-2024 End: 50-12-0620Jtc Assigned At [facility]ertart: 10-16-2023 End: 91-39-7577Gpkxcpg smoking statusEx-smoker (finding)[facility] [place] Tobacco smoking statusNeverGeneral Surgery [facility] Hospitaltart: 16-03-7016Pch Assigned At [facility] Campustart: 05-04-1176Ipuugkx smoking status NHISNever smoked tobaccoSt. Elizabeth Hospital Health SystemStart: 24-17-6398Mqyhwju use and exposureSmokeless tobacco non-userSt. Elizabeth Hospital Health SystemStart: 11-18-2024 End: 17-73-4390Laiceywkj beverage intakeCurrent drinker of alcohol (finding) [facility] SystemStart: 11-18-2024 End: 46-79-6575Rlogtst of Social functionSt. Elizabeth Hospital Health SystemStart: 28-64-5313Jbxnkan CommentsocialOhioHealth Shelby Hospital SystemStart: 41-88-4520Cin assigned at [facility] centerNot on [facility] SystemStart: 03-28-8560MzsNenyob (finding)[facility] Functional Status FjymGjzwrnyiqtNcqrfcDgyqefgb98-02-7659Mgairymwzv StatusN/AGeneral Surgery [place] Clinical Notes 10-01-2021 to 12-15-2024 Note Date & EhzhDlczWyykbkyb80-39-5672 History of Present illness Narrative* Dionne Abdul, - 12/15/2024 2:00 PM EST Subjective Patient ID: Yuki Little is a 34 y.o. female who presents today with a complaint of heavy,painful menses. Patient has had a tubal ligation for control. She has tried multiple forms ofhormonal control in the past, but does not do well on these. She has tried multiple forms of OCPs, Mirena IUD, and Depo-Provera. She got a tubal ligation because hormones did not agree with her. Since the tubal, however her menses have become incredibly painful and heavy. She has had low ironin the past requiring iron supplementation secondary to this. Today she would like to discuss her treatment options for her heavy painful periods. Chief Complaint: Dysmenorrhea, menorrhagia Menstrual History: OB History 3 Para 3 Term AB Living SAB IAB Ectopic Multiple Live Births Patient's last menstrual period was 12/02/2024 (exact date). The following portions of the patient's history were reviewed and updated as appropriate: allergies, current medications, past family history, past medical history, past social history, past surgicalhistory, problem list, and medication reconciliation was completed including current medication andpost discharge medication. Review of Systems Constitutional: negative Respiratory: negative Cardiovascular: negative Gastrointestinal: negative Genitourinary:heavy painful Menses Objective BP 128/88 Ht 175.3 cm (5' 9 ) Wt 109.5 kg (241 lb 6.4 oz) LMP 12/02/2024 (Exact Date) BMI 35.65 kg/m General: alert, appears stated age, and cooperative Heart: regular rate and rhythm, S1, S2 normal, no murmur, click, rub or gallop Lungs: clear to auscultation bilaterally Abdomen: soft, non-tender, without masses or organomegaly Assessment 1. Menorrhagia with regular cycle 2. Dysmenorrhea 3. Iron deficiency anemia due to chronic blood loss 4. History of tubal ligation Plan 1. We did review treatment options for menorrhagia and dysmenorrhea. Patient declines hormonal management as she has tried that in the past and did not do well. She does have a tubal ligation. She would like to discuss surgical management. Surgical management to include endometrial ablation hysterectomy discussed today. Patient would like more information on the endometrial ablation. She is goingto discuss procedure with her . If she would like to proceed, she will call schedule a preoperative visit. [facility] in [facility]01-[facility] History of Present illness Narrative* Lilly Becerra, MACHINE FOLDER-NETWORK OPERATIONS LEAD - 11/18/2024 1:30 PM EST Annual Well Woman Visit 11/18/2024 Subjective Yuki Little is a pleasant 34 y.o. 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 Periods are regular every 28-30 days, lasting 7 days. Dysmenorrhea: moderate, occurring premenstrually. Cyclic symptoms include pelvic pain. Denies intermenstrual bleeding, spotting, or abnormal discharge. . Patient declines STD testing today. Complaints today: Patient reports severe pelvic pain prior to periods for the past 6 months. She isalso concerned with her tubal occlusion clips and wants to discuss options. Relationship status: in a relationship The patient reports that there is not domestic violence in her life. 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 Non Smoker Children YES How many 3 vaginal deliveries Current contraception: tubal occlusion with clips History of abnormal Pap smear: no Last pap: 6 years ago Regular self breast exam: yes Last mammogram: n/a Family history of breast cancer: no Family history of uterine or ovarian cancer: no Family history of pancreatic or prostate cancer: no Family history of colon cancer: no HPV vaccinated: yes Flu shot this flu season: no PHQ9 depression screenin LMP 11/04/2024 OB History 3 Para 3 Term AB Living SAB IAB Ectopic Multiple Live Births The following portions of the patient's history were reviewed and updated as appropriate: allergies, current medications, past family history, past medical history, past social history, past surgicalhistory and problem list. MEDICAL HX Past Medical History: Diagnosis Date HPV (human papilloma virus) infection 2010 SURGICAL HX Past Surgical History: Procedure Laterality Date TUBAL LIGATION 2019 mandy-jean-pierre FAMILY HX Family History Problem Relation Age of Onset Lung cancer Paternal Grandfather Diabetes Maternal Grandmother COPD Maternal Grandmother Heart attack Maternal Grandmother Depression Maternal Grandmother Hypertension Father Thyroid disease Mother MEDS No current outpatient medications on file. No current facility-administered medications for this visit. ALLERGIES No Known Allergies Review of Systems Review of Systems Constitutional: Negative. Respiratory: Negative. Negative for chest tightness and shortness of breath. Cardiovascular: Negative. Negative for chest pain and palpitations. Gastrointestinal: Positive for constipation. Negative for diarrhea, nausea and vomiting. Endocrine: Negative. Genitourinary: Positive for pelvic pain. Negative for dyspareunia and menstrual problem. Musculoskeletal: Negative. Skin: Negative. Allergic/Immunologic: Negative. Neurological: Positive for headaches. Hematological: Negative. Psychiatric/Behavioral: Negative. Objective BP 122/80 Ht 175.3 cm (5' 9 ) Wt 107.5 kg (237 lb) LMP 11/04/2024 BMI 35.00 kg/m Physical Exam Vitals and nursing note reviewed. Constitutional: Appearance: Normal appearance. HENT: Head: Normocephalic and atraumatic. Cardiovascular: Rate and Rhythm: Normal rate and regular rhythm. Pulses: Normal pulses. Heart sounds: Normal heart sounds. Pulmonary: Effort: Pulmonary effort is normal. Breath sounds: Normal breath sounds. Chest: Breasts: Breasts are symmetrical. Right: Normal. No mass, skin change or tenderness. Left: Normal. No mass, skin change or tenderness. Abdominal: General: Bowel sounds are normal. Palpations: Abdomen is soft. Genitourinary: General: Normal vulva. Labia: Right: No rash or lesion. Left: No rash or lesion. Vagina: Normal. Cervix: Normal. Uterus: Normal. Not enlarged and not tender. Adnexa: Right adnexa normal and left adnexa normal. Right: No mass, tenderness or fullness. Left: No mass, tenderness or fullness. Musculoskeletal: General: Normal range of motion. Cervical back: Normal range of motion and neck supple. Skin: General: Skin is warm and dry. Neurological: Mental Status: She is alert and oriented to person, place, and time. Psychiatric: Mood and Affect: Mood normal. Speech: Speech normal. Behavior: Behavior normal. Thought Content: Thought content normal. Judgment: Judgment normal. Assessment/Plan: Yuki was seen today for gynecologic exam. Diagnoses and all orders for this visit: Well woman exam with routine gynecological exam Standardized adult depression screening tool completed Pelvic pain - Ultrasound pelvic with transvaginal; Future BMI is above average; Discussed eating tips for weight loss and and exercise steps. Breast self exam technique reviewed and patient encouraged to perform self-exam monthly. Discussed healthy lifestyle modifications. Educational material distributed. RTO with a physician to discuss options for tubal occlusion clips and possible endometrial ablation. 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 Follow up as needed. Await pap. Discussed ASCCP screening guidelines. Discussed taking a multivitamin. Discussed Calcium and Vitamin D for prevention of osteoporosis. Discussed need for yearly mammogram after 40 yo. Discussed colon cancer screening recommendations to begin at 45 yo, patient to discuss with PCP. All questions answered. JOVITA Warner APRN-CNP Lisa M Krotzer, APRN-CNP 11/18/24 1401 [facility] Miscellaneous Notes* Addendum Note - Julio Gomez LPN - 11/18/2024 1:30 PM ESTAddended by: JULIO GOMEZ on: 11/18/2024 02:40 PM Modules accepted: Orders [facility] in [facility]01-[facility]25 Note* Addendum Note - Julio Gomez LPN - 11/18/2024 1:30 PM ESTAddended by: JULIO GOMEZ on: 11/18/2024 02:40 PM Modules accepted: Orders [facility]12-[facility]-2023 NoteChief Complaint consultation for abd pain, GERD sx's [...] repeat recently read as cholelithiasis, but little change,still with sludge, no wall thickening or ductal [...] swallowing difficulties, no hearing loss, no ear infection(s),no nose bleeds. Cardiovascular: normal blood pressure, no [...] 17.0 Years. Stopped a (more content not included)...[facility] CampusComment on above:Result Comment: Electronically Signed By: DIANNA NAVA, Slade Phelps\Date and Time Signed: 10/16/23 13:55 [id number] Evaluation note* Encounter Date Diagnosis Assessment Notes Treatment Notes Treatment Clinical Notes Aug, Contact with and (valentine spected) exposure to covid-19 (ICD-10 - Z20.822) Aug,Viral upper respiratory infection (ICD-10 - J06.9)COVID test negative. Viral upper respiratory infection discussed with patient. Push fluids, rest, coolmist humidifier to moisten room air at night. Throat lozenges for symptom relief of sore throat. OTC ibuprofen/Tylenol as needed. Rx for [employer]Mist sent to pharmacy, patient instructed on use of medication. Follow-up with primary care provider in 5 to 7 days, sooner with new or worsening symptoms. [employer] Other 08-19-2022 Evaluation note* Encounter Date Diagnosis Assessment Notes Treatment Notes Treatment Clinical Notes Jun, Preop testing (ICD-10 - Z01.818) [employer] Other 01-09-2022 Evaluation note* Encounter Date Diagnosis Assessment Notes Treatment Notes Treatment Clinical Notes Nov, Contact with and (valentine spected) exposure to other viral communicable diseases (ICD-10 - Z20.828) Advised patient that COVID antigen test was negative today. Influenza A/B test negative. Supportivecare as directed, increase fluids and rest, Tylenol/Motrin [...] treatment plan. Patient left in stable condition Nov,therAdditional time spent conducting pre-visit phone call, screening for symptoms, instructions on social distancing, application and removal of PPE, and cleaning of examination room, equipment and supplies was preformed. Patient education given for testing methodology and results. Patient care instructions given in writting by [facility] document [employer] Other 11-28-2021 Evaluation note* Encounter Date Diagnosis Assessment Notes Treatment Notes Treatment Clinical Notes Sep, Contact with and (valentine spected) exposure to other viral communicable diseases (ICD-10 - Z20.828) Sep,OVID-19 (ICD-10 - U07.1) You must self isolate for 10 days after the onset of your symptoms which would be October 06, 2021. Sep,Other Additional time spent conducting pre-visit phone call, screening for symptoms, instructions on social distancing, application and removal of PPE, and cleaning of examination room, equipment and supplies was preformed. Patient education given for testing methodology and results. Patient care instructions given in writting by [facility] document. [employer] Other Evaluation + Plan note No data available for this section General Surgery [place] Evaluation noteNo assessment information available [facility] Work Phone: Evaluation note* Diagnosis Well woman exam with routine gynecological exam- Primary Routine gynecological examination Standardized adult depression screening tool completed Pelvic pain Cervical smear, as part of routine gynecological examination Screening for malignant neoplasm of the cervix documented in this encounter [facility] [employer] SystemEvaluation note* Diagnosis Menorrhagia with regular cycle- Primary Dysmenorrhea Iron deficiency anemia due to chronic blood loss Iron deficiency anemia secondary to blood loss (chronic) documented in this [facility] [employer] SystemHistory general Narrative - Reported* Type Description Date Medical History migraine headache Surgical Historytubal ligation [employer] Other History general Narrative - Reported* Type Description Date Medical History migraine headache Medical HistoryGERD (gastroesophageal reflux disease)Medical HistoryIron deficiencySurgical Historytubal ligation [employer] Other Hospital Discharge instructions No data available for this section General Surgery [place] Instructions* Attachments The following attachments cannot be sent through Care Everywhere. * Endometrial Ablation ([place] Islander) [facility] SystemInstructions* Attachments The following attachments cannot be sent through Care Everywhere. * Endometrial ablation ([place] Island[place]) documented in [facility]Pro[facility] SystemProgress note No data available for this section General Surgery [place] Summary Purpose Family History No Family History Records Found Relationship Condition Age at Onset Recorded Date/T alexis father Hypertension Unknown Advance Directives No Advanced Directives Records Found Advance Directive Response Recorded Date/ Time Advance Directives No June 28, 2021 11:01am Chief Complaint and Reason for Visit Chief Complaint Sore sore throat Additional Source Comments INFORMATION SOURCE (unrecogn ized section and content) DATE CREATED AUTHOR 11/27/2021 [facility] DATE CREATED AUTHOR AUTHOR'S ORGANIZ ATION 03/20/2023 [facility] DATE CREATED AUTHOR AUTHOR'S ORGANIZ ATION 12/24/2023 [facility] DATE CREATED AUTHOR AUTHOR'S ORGANIZ ATION 12/04/2024 [facility] DATE CREATED AUTHOR AUTHOR'S ORGANIZ ATION 12/17/2024 [facility] REASON FOR VISIT (unrecogniz ed section and content) ReasonCommentsGynecologic ExamPt is here for annual exam.ReasonCommentsConsult Ablation and removal of tubal clamps Patient Care team informatio n (unrecognized section and content) Team Status: Active Member Role Status Dates Herb Ellis MD Primary Care Provider Active Team Status: Inactive Member Role Status Dates Herb Ellis MD Primary Care Provider Active Start: March 07, 2024 End: March 07tee Avila APRNAttenravindra ProviderActiveStart: March 07, 2024 End: March 07, 2024Team MemberRelationshipSpecialtyStart DateEnd Date Herb Ellis MD [address] [place] [address] PCP - GeneralFamily Medicine12/02/24 Goals (unrecognized section and content) Goals may be documented in a n alternate section FOR RECORDS PERTAINING TO PATIENTS WHO ARE [...] BE BASED ON THE PRIMARY CLINICAL RECORDS. [employer] [facility]. provides no warranty or guarantee of the accuracy or completeness of information in this document.
[2025-08-24 15:32] LABS: Hematocrit 40.9 % (36.0-48.0); Hemoglobin 13.8 g/dL (12.0-16.0); Immature Granulocytes Abs Auto 0.01 10^3/uL (0.00-0.03); Immature Granulocytes Pct Auto 0.2 % (0.0-0.5); Lymphocytes Absolute Auto 2.2 10^3/uL (1.2-3.8); Mean Corpuscular HGB Conc 33.7 g/dL (29.9-35.2); Mean Corpuscular Hemoglobin 28.9 pg (26.7-34.0); Mean Corpuscular Volume 85.7 fL (81.0-99.0); Platelet Count 397 10^3/uL (150-450); Red Blood Count 4.77 10^6/uL (4.20-5.40); White Blood Count 6.1 10^3/uL (4.0-11.0)
[2025-08-24] MEDS: PANTOPRAZOLE SODIUM 40 MG VIAL IV (15:49)
[2025-08-24] MEDS: 0.9 % SODIUM CHLORIDE 1,000 ML 999 ML IV (15:49)
[2025-08-24 15:50] LABS: Alanine Aminotransferase 21 U/L (14-59); Albumin Globulin Ratio 0.9; Albumin Level 4.1 g/dL (3.4-5.0); Alkaline Phosphatase 129 U/L (46-116); Anion Gap 19.2; Aspartate Amino Transferase 32 U/L (15-37); Blood Urea Nitrogen 16.0 mg/dL (7.0-18.0); Calcium 9.4 mg/dL (8.5-10.1); Carbon Dioxide 23.5 mmol/L (21.0-32.0); Chloride 102 mmol/L (98-107); Estimated GFR (African America >60 (>=60 mL/min/1.73m^2); Estimated GFR (Non-African Ame >60 (>=60 mL/min/1.73m^2); Globulin 4.8 g/dL; Glucose 114 mg/dL (74-106); Lipase 49.0 U/L (16.0-77.0); Potassium 3.7 mmol/L (3.5-5.1); Sodium 141 mmol/L (136-145); Total Protein 8.9 g/dL (6.4-8.2)
--- NOTE | 2025-08-24 17:17 | US_ITS ---
[facility] [place] [id number] Patient Name: YUKI LITTLE MRN: [id number] date: 1990 Sex: F Assigned Patient Location: ER Current Patient Location: ER Accession/Order Number: [id number] Exam Date: 08/24/2025 18:10 Report Date: 08/24/2025 19:32 At the request of: ILDEFONSO DIAZ Procedure: US right upper quadrant Also right upper quadrant INDICATION: Pain COMPARISON: CT abdomen pelvis 05/24/2025 FINDINGS: Liver unremarkable size and echogenicity. Normal hepatopedal flow within main portal vein. Gallbladder demonstrates echogenic foci with twinkle artifact. No wall thickening. Negative Gomes's sign. No pericholecystic fluid. Common bile duct 2.5 mm. Pancreas obscured due to bowel gas. Right kidney unremarkable. 10 x 6.1 x 6.4 cm. No hydronephrosis. US/US right upper quadrant IMPRESSION: Cholelithiasis. Impression dictated by: Jhon James M.D. 08/24/2025 7:32 PM Dictation Location: [place] [address] Electronically authenticated by: [id number] Y Date: 08/24/2025 19:32
[2025-08-24] MEDS: KETOROLAC TROMETHAMINE 30 MG/ML VIAL IVP (17:34)
[2025-08-24 19:48] VITALS: BP 156/72; PULSE 87; TEMP 36.7; O2SAT 97
[2025-08-24 20:23] LABS: Glucose Urine UA NEGATIVE (NEGATIVE)
== END 2025-08-24 20:30 | disposition home or self-care (01) ==
PROVIDERS: Nurse Practitioner Family; Emergency Provider Emergency Medicine; PCP Family Medicine
DX: K80.20 Calculus of gallbladder without cholecystitis without obstruction (principal); R10.10 Upper abdominal pain, unspecified; Z87.891 Personal history of nicotine dependence
CPT/HCPCS: 36415; 74176; 76705; 80053; 81003; 83690; 84703; 85025; 96374; 96375; 99284; 99285; J1885; J2405

== ENCOUNTER 2025-10-05 12:37 | Outpatient (OUT) | payer BC, SELFPAY ==
--- OUTSIDE RECORDS SUMMARY | 2025-10-05 12:41 | XMS_ITS | Clinical Summary ---
Author Organization [employer] [facility] tem Address [id number] [address] 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 Phone Dav Ellis MD Primary Care Provider [phone] Allergies No known active allergies Medications No [...] drink = 0.6 oz pure alcohol)socialPHQ-2AnswerDate RecordedTotal Hfnso7845ChildcareAnswerDate MtxkcxjrKtwxkujwkOaqdvfm02/12/2019EmploymentAnswerDate RecordedEmploymentUnknown 04/15/2019Hunger ScreeningAnswerDate RecordedWithin the past 12 months we worried whether our food would run out before we got money to buy more.Never True12/15/2024Within the past 12 months the food we bought just didn't last and we didn't have money to get more.Never True12/15/2024CommentsUnknownSex and Gender InformationValueDate RecordedSex Assigned at BirthNot on fileLegal MnwJnemji32/06/2015 12:11 PM EDTGender IdentityNot on fileSexual OrientationNot on file Last Filed Vital Signs Vital SignReadingTime TakenCommentsBlood Epbtcrku415/8812/15/2024 2:12 PM EST Pulse--Temperature--Respiratory Rate--Oxygen Saturation--Inhaled Oxygen Concentration--Irrdnj566.5 kg (241 lb 6.4 oz)12/15/2024 2:12 PM WTLOpllou814.3 cm (5' 9 )12/15/2024 2:12 PM ESTBody Mass Index35.65012/15/2024 2:12 PM EST Plan of Treatment Health MaintenanceDue DateLast DoneCommentsDTaP,Tdap and Td Vaccines (1 - Tdap) 2010Influenza Tuausmu9007/05/2025dult BMI Follow Up Plan11/18/2025 11/18/2024Depression Zkgduuvke46dult BMI Qxmcgtpmj87/11/2026 12/15/2024Tobacco Mwvkfiyer68Pap Smear, 11/18/2024 Medical Devices Not on file Procedures Procedure NamePriorityDate/TimeAssociated DiagnosisCommentsHIGH RISK HPV W/ROSIE Ecuecqn0611/18/2024 4:46 AM EST Cervical smear, as part of routine gynecological examination from Last 3 Months or Most Recently Relevant to Health Maintenance Results * High risk HPV w/rosie (11/18/2024 4:46 AM EST)ComponentValueRef RangeTest MethodAnalysis TimePerformed AtPathologist SignatureHpv specimen typeThinPrep 11/19/2024 4:47 AM [facility] 16NegativeNegative^Negative 11/20/2024 3:52 PM [facility] 18Negative Negative^Cgylkiab09/17/2025 3:52 PM [facility] LABOther high risk hpvNegativeNegative^Kprevwlx57/17/2025 3:52 PM [facility] LABComment: HPV types 31,33,35,39,45,52,56,58,59,66 and 68 DNA were undetectable. Specimen (Source)Anatomical Location / LateralityCollection Method / Volume Collection TimeReceived AwkvRYUJE94/15/2025 4:46 AM EST11/19/2024 4:47 AM EST Narrative Authorizing ProviderResult TypeResult StatusLilly Francis ELECTRIC BLANKET WIRER-CNPLAB BLOOD ORDERABLESFinal ResultPerforming OrganizationAddressCity/State/ZIP CodePhone Number [facility] [address] [place] [address] [facility] [address] [place] [address] from Last 3 Months or Most Recently Relevant to Health Maintenance Insurance Care Teams Team MemberRelationshipSpecialtyStart DateEnd Dav Ellis MD [address] [place] [address] PCP - GeneralFamily Medicine12/02/24
--- OUTSIDE RECORDS SUMMARY | 2025-10-05 12:41 | XMS_ITS | Clinical Summary ---
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
--- OUTSIDE RECORDS SUMMARY | 2025-10-05 12:41 | XMS_ITS | CCD ---
Author Organization [facility] Care Team Providers Care Parts Specialist Name Role Phone Lisandra Parada Unavailable Caterina Vargas Unavailable Neva Astrid Unavailable LUPE ., DR ESTEVEZ Admitting Unavailable HOY ., DR ESTEVEZ Attending Unavailable HOY ., DR ESTEVEZ Consulting Unavailable HOY ., DR ESTEVEZ Primary Care Unavailable HOY ., DR ESTEVEZ Primary Care Unavailable HOY ., DR ESTEVEZ Attending Unavailable HOY ., DR ESTEVEZ Admitting Unavailable HOY ., DR ESTEVEZ Consulting Unavailable Chauncey Duke Consulting Unavailable HOY ., DR ESTEVEZ Primary [...] ., DR ESTEVEZ Primary Care Unavailable Chauncey Duke Consulting Unavailable GRECHNY .FRED Consulting Unavailabl e PAY ., DR BOUCHER Admitting Unavailable PAY ., DR BOUCHER Attending Unavailable HOY ., DR ESTEVEZ Primary Care Unavailable MARITZA GORE Consulting Unavailable HOY ., DR ESTEVEZ Admsang Unavailable HOY ., DR ESTEVEZ Attending Unavailable HOY ., DR ESTEVEZ Primary Care Unavailable HOY ., DR ESTEVEZ Admsang Unavailable HOY ., DR ESTEVEZ Attending Unavailable HOY ., DR ESTEVEZ Consulting Unavailable HOY ., DR ESTEVEZ Primary Care Unavailable Smiley Harrell Unavailable Herb Andrade Primary Care Physician Unavailable Primary Care Provider Unavailbrennon e LILLY FRANCIS Attending Unavailable LILLY FRANCIS Referring Unavailable HERB ANDRADE Primary Care Unavailable LILLY FRANCIS Referring Unavailable Herb Andrade MD Primary Care Provider [phone] LILLY FRANCIS Attending Unavailable DIONNE CR Attending Unavailable HERB ANDRADE Primary Care Unavailable Slade BUSTAMANTE Attending Unavailable Allergies Allergy ClassificationReported Allergen(s)Allergy TypeDate of OnsetReaction(s) Facility (1 source)Iodine (And Iodine Containting Drugs)Drug allergy (disorder)11-04-2005 [facility] Repository (3 sources)Contrast media; Translations: [Contrast Dye]Propensity to adverse reactions to substanceWeal (disorder)General Surgery [place] (1 source)No Known Medication Allergies; Translations: [No Known Medication Allergies]Propensity to adverse reactions (disorder)[facility] RepositoryNEGATED: Highlighted row has been ruled out! (1 source)[facility]Gen[facility]ern[facility] Surgery CameronNEGATED: Highlighted row has been ruled out! (1 source)[facility] allergyFishWestern [facility] [place] Medications Current Medications MedicationDrug Class(es)DatesSig (Normalized)Sig (Original)[id number] 200 actuat albuterol 0.09 mg/actuat metered dose inhaler (1 source)beta2-Adrenergic AgonistStart: 98-59-4194igwg 2 puff(s) by inhalation four times daily as neededAlbuterol Sulfate HFA 108 (90 Base) MCG/ACT 2 puffs Inhalation qid prn Sep, Activeazithromycin 250 mg oral tablet (1 source)Macrolide AntimicrobialStart: 38-10-5960Tyzvqdtgl 250 MG 2 tablet on the first day, then 1 tablet daily for 4 days Orally Once a day for 5 day(s) Sep, Activedextromethorphan hydrobromide 15 mg / guaiFENesin 400 mg / pseudoephedrine hydrochloride 60 mg oraltablet (1 source)alpha-Adrenergic Agonist, Uncompetitive E-xdzgnv-P-aspartate Receptor Antagonist, Sigma-1 AgonistStart: 86-73-7656Uzwivph DM 60-15-400 MG 1 tablet at 4 hour intervals as needed Orally Four times a day for 3 days Aug, Activeomeprazole 40 mg delayed release oral capsule (1 source)Proton Pump InhibitorOmeprazole 40 MG Oral for 15 Days Active ondansetron 4 mg oral tablet (1 source)Serotonin-3 Receptor AntagonistStart: 87-73-5273xikd 1 tablet by mouth every eight hoursondansetron 4 mg Tab 4 mg = 1 tab(s), Oral, q8hr, Refills(s) 0 Start Date: 10/16/23 Status: OrderedpredniSONE 20 mg oral tablet (1 source)Start: 41-70-1298wcjg 1 tablet by mouth every twelve hourspredniSONE 20 MG 1 tablet Orally bid for 5 day(s) Sep, Activerimegepant 75 mg disintegrating oral tablet (1 source)Start: 93-78-5057jrpk 1 tablet under the tongue onceNurtec ODT [...] 75 mg oral capsule (4 sources)Nitrofuran AntibacterialStart: 26-23-2954qgkb 1 capsule by mouth every twelve hoursMacrobid 100 MG 1 cap(s) orally bid for 7 days Jun, Not-Takingpantoprazole (3 sources)Proton Pump InhibitorPantoprazole Sodium Not-TakingPantoprazole Sodium Active Problems Active Problems Problem ClassificationProblemDateDocumented DateEpisodic/ChronicAbdominal pain (11 sources)Epigastric pain; Translations: [Epigastric pain]Onset: 10-16-2023 EpisodicAnxiety disorders (1 source)Wkxvqqi03-60-3070LnozhuzRskncba tract disease (1 source)Biliary yndmnsle81-56-8992McqsqccaHamrago dysrhythmias (2 sources)Paroxysmal supraventricular tkbthcslopl61-41-4096EexsjjyEfqumethrm and other anemia (1 source)Iron deficiency anemia due to blood loss; Translations: [Iron deficiency anemia secondary to blood loss (chronic)]96-03-0333RknafdjCvslrapnok and other anemia (1 source)Iron deficiency anemia secondary to blood loss (chronic); Translations: [Iron deficiency anemia secondary to blood loss (chronic)]Onset: 47-25-0223RbiizarThkvwdkvlv and other anemia (4 sources)Iron deficiency anemia, unspecified; Translations: [IRON DEFICIENCY ANEMIA UNSPECIFIED]Onset: 90-24-2026LvcpxipuOvvmbpukzi and other anemia (2 sources)Iron deficiency uljmrl74-68-6898TwimbdzaYnahzvifey disorders (5 sources)Gastroesophageal reflux disease without esophagitis; Translations: [Gastro-esophageal reflux disease without esophagitis]Onset: 39-51-3206Groqcds Headache; including migraine (1 source)Ncshljse99-60-7355NrgfiybYjemwrk and fatigue (1 source)Other fatigue; Translations: [OTHER FATIGUE]Onset: 18-20-7590Hgmlsdfp Menstrual disorders (4 sources)Menorrhagia; Translations: [Excessive and frequent menstruation with regular cycle]Onset: 050638-97-1456KegweyqMtbxq gastrointestinal disorders (3 sources)Dysphagia; Translations: [Dysphagia, unspecified]Onset: 10-16-2023 EpisodicOther gastrointestinal disorders (1 source)Change in bowel habitOnset: 32-15-1259SjdsgcvaArhtj gastrointestinal disorders (1 source)Altered bowel clvjytdd48-33-9561EtxdmdweLfjgq nutritional; endocrine; and metabolic disorders (2 sources)Body mass index 30+ - ihruffx34-14-1799LxyjdipOvexm nutritional; endocrine; and metabolic disorders (1 source)Fxuwjzn76-60-2512IoiwssdQcwrj nutritional; endocrine; and metabolic disorders (2 sources)Obese class II; Translations: [Obesity, Class II, BMI 35-39.9]Onset: 430129-26-6072VkxduzkPfdla nutritional; endocrine; and metabolic disorders (1 source)Obesity caused by energy qnyjdmiae02-97-6650QwplteoYpqms screening for suspected conditions (not mental disorders or infectious disease) (5 sources)Other specified abnormal findings of blood chemistry; Translations: [OTH SPEC ABNORMAL FINDINGS BLDCHEM]Onset: 25-90-2356AwhybyhrFzqjk upper respiratory infections (1 source)Acute upper respiratory infection, unspecifiedEpisodicResidual codes; unclassified (1 source)Family history of other diseases of the digestive systemOnset: 38-68-8148AvannqilQjrmlrqr codes; unclassified (1 source)FH: Ulcerative ysinala74-21-3174LmbuqmbbDizchjama and history of mental health and substance abuse codes (3 sources)Personal history of nicotine dependence; Translations: [Standardized adult depression screening tool completed ]Onset: 234149-63-7978Gsmjwhcv Unclassified (1 source)ConsultOnset: 51-57-5104Paezspevfzdq (1 source)Gynecologic ExamOnset: 11-18-2024 Past or Other Problems Problem ClassificationProblemDateDocumented DateEpisodic/ChronicCardiac dysrhythmias (4 sources)Palpitations; Translations: [PALPITATIONS]Onset: 08-07-3881Eyeooyos Immunizations and screening for infectious disease (2 sources)Contact with and (suspected) exposure to other viral communicable diseasesOnset: 10-01-2021 Resolved: 80-37-2486OrzasrqpAlig disorders (2 sources)Mood disordersOnset: Nausea and vomiting (1 source)Nausea; Translations: [NAUSEA]Onset: 28-51-1419TvsmlmwdNzkusnhlzixi (1 source)Contact with and (suspected) exposure to covid-19 Z20.822Unclassified (2 sources)Onset: Viral infection (1 source)COVID-19Onset: 10-01-2021 Resolved: 10-01-2021 Results Test NameValueInterpretationReference RangeFacilityAmbulatory Visit Summaryon 31-03-4713Nyugamddum Visit SummaryAmbulatory Visit Summary YUKI LITTLE :1990 Visit Date:09/07/2025 Ambulatory Visit Instructions Your Diagnosis Change in bowel habits Epigastric pain Chronic GERD Right upper quadrant abdominal pain Your Care Team Attending Physician - DIANNA NAVASlade Primary Care Physician - Herb Andrade MD Procedures Performed EGD - esophagogastroduodenoscopy (12/10/2023), Abdominoplasty, Tubal ligation. Discharge Vitals Heart Rate (Peripheral) 76 Respiratory Rate 16 Blood Pressure 126/80 Height 175.2 cm Height 69 in Weight 119.8 kg Weight 264.113 lb BMI 39.03 Allergies Contrast Dye (Hives) No Known Medication Allergies Problems Ongoing - Any problem that you are currently receiving treatment for. Anxiety BMI 39.0-39.9,adult Change in bowel habits Cholelithiasis Chronic GERD Dysphagia Epigastric pain Gastroesophageal reflux disease Iron deficiency anemia Migraines Obesity due to excess calories Paroxysmal supraventricular tachycardia Right upper quadrant abdominal pain RUQ pain Patient Survey You may receive a survey via text or e-mail asking about your office visit. Please share your experience with us by completing your survey. We appreciate your feedback and thank you for choosing us for your care. Patient Portal You may access all of your results and other medical record information on our secure patient portal. If you are not signed up for this yet, please contact [employer] at [phone] to get signed up today. Language Information Language assistance services are available as needed. [facility]US PELVIC WITH TRANSVAGINALon 90-02-4758EQ PELVIC WITH TRANSVAGINALUS PELVIC WITH TRANSVAGINAL US [...] Finalized by Xavier Caceres on 12/02/2024 3:09 PMNOhio State University [facility] Cytologyon 61-75-8940TcbkxpwyMhsikmUbtAlajjq [facility] HospitalComment on above: Result Comment: [facility] [address] [place] [address] Gynecologic Cytology Consultation Patient Name:YUKI LITTLE:1990 (Age: 34)Gender:FTaken:11/18/2024Reported:11/30/2024Physician(s):Lilly Francis, MAY- [employer] ([phone])Copy To: Rec. #:[id number]: #[id number] Final Cytologic Interpretation ThinPrep Pap Test (Cervical): Satisfactory for evaluation. A transformation zone component is present. NEGATIVE FOR INTRAEPITHELIAL LESION OR MALIGNANCY. [facility]/11/30/2024 Interpretation performed at [facility], [address] [place] [address], License number: [id number]. Electronically Signed Out By EMILIANO Pickett(ASCP) Date of Last Menstrual Period: 11/04/24 Other Clinical Conditions: Z01.419 Auditor In Charge exam wo/abn findings Source of Specimen ThinPrep Pap Test (Cervical) Thin Prep Pap (AGING ROOM HAND) Fee Code(s): G0145 The Pap test is a screening test with an inherent, but low, probability of error. The Pap test is primarily effective for the diagnosis and prevention of squamous cell carcinoma. Regular screening iscritical for prevention. ThinPrep liquid-based slides, which meet the [employer] criteria for automated screening, have been screened by the ThinPrep Imaging System (as of 07/21/07) along with an additional manual rescreening by a education analyst and, if indicated, by a pathologist.HIGH RISK HPV W/GENOon 06-21-0153FLV 31+33+35+39+45+51+52+56+58+59+66+68 DNA FRANCES+probe Ql (Cvx)HPV SPECIMEN TYPE ThinPrep HPV 16 Negative (qualifier value) HPV 18 Negative (qualifier value) OTHER HIGH RISK HPV Negative (qualifier value) HPV types 31,33,35,39,45,52,56,58,59,66 and 68 DNA were undetectable.NormalProMedica St. Mary Medical CenterComment on above: Performed By: #### [id number] #### [facility] ([id number]) [address] [place] [address] [facility] ([id number]) [address] [place], [place] [address]Oh Panel InformationOrdered By: Talia Avila on 87-15-3968Txsxi Strep (POC)[facility] HospitalCOVID + FLU Quick Testingon 87-94-6338FDMF-CoV-2 (COVID-19) RNA FRANCES+probe Ql (Unsp spec)NegativeNoMOLI Sensing Electromagnetic Plus Other COVID + FLU Quick TestingNegativeNoAvimoto Other US SINGLE QUAD RT UPPERon 65-80-6752RV SINGLE QUAD RT UPPEREXAMINATION: US SINGLE QUAD [...] of the liver. Electronically authenticated by: CHAUNCEY DUKE Date: 2023-03-19 09:[address] [place], [place] [address]F 14(COMP METB)on 41-00-4560Rakvnuj [Mass/Vol]3.7 g/dLNormal 3.4-5.0The [facility] HospitalComment on above:Performed By: #### DDIM #### [facility] [address] [address] [address] Belgica LlanesAlbumin/Globulin [Mass ratio]0.9 {ratio}NormalThe [facility]itan HospitalComment on above:Performed By: #### DDIM #### [facility] [address] [address] [address] Belgica CorbettP [Catalytic activity/Vol]83 U/PFmnego91-898Jfs [facility] HospitalComment on above:Performed By: #### DDIM #### [facility] [address] [place] [address] Dr. Belgica CorbettT [Catalytic activity/Vol]25 U/LDhrmky03-82Nzx [facility] HospitalComment on above:Performed By: #### DDIM #### [facility] [address] [place] [address] Dr. Belgica Kruger gap [Moles/Vol]15.1 mmol/LNormalThe [facility] Comment on above:Performed By: #### DDIM #### [facility] [address] [place] [address] Dr. Belgica LlanesAST [Catalytic activity/Vol]17 U/PBqbqge41-05Iuz [facility] HospitalComment on above:Performed By: #### DDIM #### [facility] [address] [place] [address] Dr. Belgica LlanesBilirubin [Mass/Vol]0.3 mg/dLNormal0.2-1.0[facility] Comment on above:Performed By: #### DDIM #### [facility] [address] [place] [address] Dr. Belgica LlanesCalcium [Mass/Vol]9.0 mg/dLNormal8.5-10.1The [facility] Comment on above:Performed By: #### DDIM #### [facility] [address] [address] [address] Belgica LlanesChloride [Moles/Vol]106 mmol/OGcjmve16-268Oht [facility] Comment on above:Performed By: #### DDIM #### [facility] [address] [address] [address] Belgica LlanesCO2 [Moles/Vol]26.2 mmol/FYtbxta18.0-32.0The [facility] Comment on above:Performed By: #### DDIM #### [facility] [address] [place] [address] Dr. Belgica LlanesCreatinine [Mass/Vol]0.77 mg/dLNormal0.55-1.02The [facility] HospitalComment on above:Performed By: #### DDIM #### [facility] [address] [place] [address] Dr. Belgica LepeGFR-AF MEXICAN>60Normal>=60The [facility] HospitalComment on above:Performed By: #### DDIM #### [facility] [address] [place] [address] Dr. Belgica LepeGFR-NON AF MEXICAN>60Normal>=60[facility] CincinnatiComment on above:Performed By: #### DDIM #### [facility] [address] [place] [address] Dr. Belgica LlanesGlobulin (S) [Mass/Vol]4.0 g/dLNormalThe [facility] HospitalComment on above:Performed By: #### DDIM #### [facility] [address] [address] [address] Belgica LlanesGlucose [Mass/Vol]97 mg/cAEpliun89-760Lrl [facility] Comment on above:Performed By: #### DDIM #### [facility] [address] [place] [address] Dr. Belgica LlanesPotassium [Moles/Vol]4.3 mmol/LNormal3.5-5.1The [facility] Comment on above:Performed By: #### DDIM #### [facility] [address] [place] [address] Dr. Belgica LlanesProtein [Mass/Vol]7.7 g/dLNormal6.4-8.2[facility] Comment on above:Performed By: #### DDIM #### [facility] [address] [place] [address] Dr. Belgica Chandradium [Moles/Vol]143 mmol/FCimyxk075-223Wlj [facility] Comment on above:Performed By: #### DDIM #### [facility] [address] [place] [address] Dr. Belgica LlanesUrea nitrogen [Mass/Vol]10.0 mg/dLNormal7.0-18.0The [facility] HospitalComment on above:Performed By: #### DDIM #### [facility] [address] [place] [address] Dr. Belgica Watson nitrogen/Creatinine [Mass ratio]13.0 mg/mgNormalThe [facility] HospitalComment on above:Performed By: #### DDIM #### [facility] [address] [place] [address] Dr. Belgica Edward AUTO DIFFon 77-92-5594PKOX #0.0 103/ulNormal0.0-0.1The [facility] HospitalComment on above:Performed By: #### CBC #### [facility] [address] [place] [address] Dr. Belgica LlanesBasophils/100 WBC (Bld)0.5 %Normal0.2-2.0[facility] Comment on above:Performed By: #### CBC #### [facility] [address] [place] [address] Dr. Belgica Calabrese #0.1 103/ulNormal0.0-0.7The [facility] HospitalComment on above: Performed By: #### CBC #### [facility] [address] [place] [address] Dr. Belgica Lepeosinophils/100 WBC (Bld)2.0 %Normal0.9-7.0The [facility] Comment on above:Performed By: #### CBC #### [facility] [address] [place] [address] Dr. Belgica Leperythrocyte distribution width (RBC) [Ratio]12.4 %Qiioyw36.0-15.0 The [facility] HospitalComment on above:Performed By: #### CBC #### [facility] [address] [place] [address] Dr. Belgica LlanesHematocrit (Bld) [Volume fraction]42.3 %Tvtbfm55.0-48.0The [facility] HospitalComment on above:Performed By: #### CBC #### [facility] [address] [place] [address] Dr. Belgica LlanesHemoglobin (Bld) [Mass/Vol]13.7 g/gKNhfiml69.0-16.0The [facility] HospitalComment on above:Performed By: #### CBC #### [facility] [address] [place] [address] Dr. Belgica Stanley #0.01 10e3/ulNormal0.00-0.03The [facility] HospitalComment on above:Performed By: #### CBC #### [facility] [address] [place] [address] Dr. Belgica Stanley %0.2 %Normal0.0-0.5The [facility] on above: Performed By: #### CBC #### [facility] [address] [place] [address] Dr. Belgica ReedH #2.2 103/ulNormal1.2-3.8The [facility] HospitalComment on above:Performed By: #### CBC #### [facility] [address] [place] [address] Dr. Belgica Washingtonmphocytes/100 WBC (Bld)37.1 %Qonmud79.5-60.0[facility] on above:Performed By: #### CBC #### [facility] [address] [place] [address] Dr. Belgica DamonUAL DIFF REQNONormalThe [facility] HospitalComment on above: Performed By: #### CBC #### [facility] [address] [address] [address] Belgica Rapp (RBC) [Entitic mass]28.3 pgRowhnz01.7-34.0The [facility] HospitalComment on above:Performed By: #### CBC #### [facility] [address] [address] [address] Belgica Rapp (RBC) [Mass/Vol]32.4 g/yYWagrnq52.9-35.2The [facility] HospitalComment on above:Performed By: #### CBC #### [facility] [address] [place] [address] Dr. Belgica Rapp (RBC) [Entitic vol]87.4 rYWnyogi16.0-99.0The [facility] HospitalComment on above:Performed By: #### CBC #### [facility] [address] [place] [address] Dr. Belgica Galdamez #0.5 103/ulNormal0.3-0.8The [facility] HospitalComment on above:Performed By: #### CBC #### [facility] [address] [address] [address] Belgica Escotoocytes/100 WBC (Bld)8.3 %Normal1.7-12.0The [facility] Comment on above:Performed By: #### CBC #### [facility] [address] [place] [address] Dr. Belgica Adams #3.1 103/ulNormal1.4-6.5The [facility] HospitalComment on above:Performed By: #### CBC #### [facility] [address] [place] [address] Dr. Belgica Ivyutrophils/100 WBC (Bld)51.9 %Trkxkr56.0-75.0The [facility] HospitalComment on above:Performed By: #### CBC #### [facility] [address] [place] [address] Dr. Belgica Walterlet mean volume (Bld) [Entitic vol]8.6 fLCritically low 9.5-13.5The [facility] HospitalComment on above:Performed By: #### CBC #### [facility] [address] [place] [address] Dr. Belgica LlanesPLT313 103/ccGpovsv351-273Jyl [facility] HospitalComment on above: Performed By: #### CBC #### [facility] [address] [place] [address] Dr. Belgica LlanesRBC4.84 106/ulNormal4.20-5.40The [facility] HospitalComment on above:Performed By: #### CBC #### [facility] [address] [place] [address] Dr. Belgica LlanesWBC6.0 103/ulNormal4.0-11.0The [facility] HospitalComment on above: Performed By: #### CBC #### [facility] [address] [place] [address] Dr. Belgica LlanesFERRITINon 79-08-9640Ueiowwqs [Mass/Vol]400.0 ng/mLCritically high6.2-137.0The [facility] HospitalComment on above:Performed By: #### IRON, FERR #### [facility] [address] [place] [address] Dr. Belgica LlanesIROoYdit 06-10-8069Qxgj [Mass/Vol]61.0 ug/zQXtnevl31.0-170.0[facility] on above:Performed By: #### DDIM #### [facility] [address] [place] [address] Dr. Belgica LlanesUS PELVIS AND TRANSVAGon 25-43-6626XI PELVIS AND TRANSVAG EXAMINATION: US PELVIS AND [...] for patient's symptoms. Electronically authenticated by: CHAUNCEY DUKE Date: 2022-12-26 09:34NormPrem[facility] AUTO DIFFon 96-92-5377WLYW #0.0 103/ulNormal0.0-0.1[facility] CincinnatiComment on above:Performed By: #### CBC #### [facility] [address] [place] [address] Dr. Belgica LlanesBasophils/100 WBC (Bld)0.5 %Normal0.2-2.0[facility] Comment on above:Performed By: #### CBC #### [facility] [address] [address] [address] Belgica Calabrese #0.1 103/ulNormal0.0-0.7The [facility] HospitalComment on above: Performed By: #### CBC #### [facility] [address] [address] [address] Belgica Lepeosinophils/100 WBC (Bld)1.4 %Normal0.9-7.0[facility] Comment on above:Performed By: #### CBC #### [facility] [address] [address] [address] Belgica Leperythrocyte distribution width (RBC) [Ratio]14.0 %Elzxel07.0-15.0 The [facility] HospitalComment on above:Performed By: #### CBC #### [facility] [address] [place] [address] Dr. Belgica LlanesHematocrit (Bld) [Volume fraction]35.7 %Critically low36.0-48.0 The [facility] HospitalComment on above:Result Comment: Previously reported as: 30.8 On 10/08/2022 18:42 By [id number] By: #### CBC #### [facility] [address] [place] [address] Dr. Belgica LlanesHemoglobin (Bld) [Mass/Vol]12.0 g/kVExstth85.0-16.0The [facility] HospitalComment on above:Result Comment: Previously reported as: 12.1 On 10/08/2022 18:42 By [id number] By: #### CBC #### [facility] [address] [place] [address] Dr. Belgica Stanley #0.01 10e3/ulNormal0.00-0.03The [facility] HospitalComment on above:Performed By: #### CBC #### [facility] [address] [place] [address] Dr. Belgica Stanley %0.2 %Normal0.0-0.5The [facility] HospitalComment on above: Performed By: #### CBC #### [facility] [address] [place] [address] Dr. Belgica Wells #1.7 103/ulNormal1.2-3.8The [facility] HospitalComment on above:Performed By: #### CBC #### [facility] [address] [place] [address] Dr. Belgica Reedhocytes/100 WBC (Bld)29.6 %Sdxhqs75.5-60.0The [facility] HospitalComment on above:Performed By: #### CBC #### [facility] [address] [place] [address] Dr. Belgica DamonUAL DIFF REQNONormalThe [facility] HospitalComment on above: Performed By: #### CBC #### [facility] [address] [place] [address] Dr. Belgica Smalls (RBC) [Entitic mass]28.1 gkXfjqtl84.7-34.0The [facility] HospitalComment on above:Result Comment: Previously reported as: 34.8 On 10/08/2022 18:42 By [id number] By: #### CBC #### [facility] [address] [place] [address] Dr. Belgica Rapp (RBC) [Mass/Vol]33.6 g/xZQtpkwv61.9-35.2The [facility] HospitalComment on above:Result Comment: Previously reported as: 39.3 On 10/08/2022 18:42 By [id number] By: #### CBC #### [facility] [address] [place] [address] Dr. Belgica Rapp (RBC) [Entitic vol]83.6 wAIdmmhu51.0-99.0The [facility] HospitalComment on above:Result Comment: Previously reported as: 88.5 On 10/08/2022 18:42 By [id number] By: #### CBC #### [facility] [address] [place] [address] Dr. Belgica Galdamez #0.4 103/ulNormal0.3-0.8The [facility] HospitalComment on above:Performed By: #### CBC #### [facility] [address] [place] [address] Dr. Belgica Escotoocytes/100 WBC (Bld)7.2 %Normal1.7-12.0The [facility] Comment on above:Performed By: #### CBC #### [facility] [address] [place] [address] Dr. Belgica Adams #3.5 103/ulNormal1.4-6.5The [facility] HospitalComment on above:Performed By: #### CBC #### [facility] [address] [place] [address] Dr. Belgica Ivyutrophils/100 WBC (Bld)61.1 %Olsebu08.0-75.0The [facility] HospitalComment on above:Performed By: #### CBC #### [facility] [address] [place] [address] Dr. Belgica Sigala mean volume (Bld) [Entitic vol]9.0 fLCritically low 9.5-13.5The [facility] HospitalComment on above:Performed By: #### CBC #### [facility] [address] [place] [address] Dr. Belgica LlanesPLT323 103/wuConrun671-846Kju [facility] on above: Performed By: #### CBC #### [facility] [address] [place] [address] Dr. Belgica LlanesRBC3.48 106/ulCritically low4.20-5.40The [facility] on above:Performed By: #### CBC #### [facility] [address] [place] [address] Dr. Belgica LlanesWBC5.7 103/ulNormal4.0-11.0The [facility] on above: Performed By: #### CBC #### [facility] [address] [place] [address] Dr. Belgica Hill [id number]-DIMER0.21 mg/L FEUNormal<=0.59The [facility] on above:Performed By: #### DDIM #### [facility] [address] [place] [address] Dr. Belgica Jerome [facility] on above:Result Comment: Increases in D-Dimer concentration [...] generalized hospitalization. Performed By: #### DDIM #### [facility] [address] [place] [address] Dr. Belgica Moreno [id number] [Mass/Vol]19.0 ug/dLCritically low 50.0-170.0The [facility] on above:Performed By: #### IRON #### [facility] [address] [place] [address] Dr. Belgica Adrian HCG QUALon [id number], QUALNegativeNormalNEGATIVE The [facility] HospitalComment on above:Performed By: #### DDIM #### [facility] [address] [address] [address] Belgica García 14(COMP METB)on 68-79-3502Ofiwtzo [Mass/Vol]3.7 g/dLNormal 3.4-5.0The [facility] HospitalComment on above:Performed By: #### CMP, HSTROPN, TSH #### [facility] [address] [address] [address] Belgica LlanesAlbumin/Globulin [Mass ratio]1.0 {ratio}NormalThe [facility] HospitalComment on above:Performed By: #### CMP, HSTROPN, TSH #### [facility] [address] [place] [address] Dr. Belgica CorbettP [Catalytic activity/Vol]87 U/LZfjeku88-098Zyg [facility] HospitalComment on above:Performed By: #### CMP, HSTROPN, TSH #### [facility] [address] [address] [address] Belgica Gann [Catalytic activity/Vol]9 U/LCritically kwu39-59Tji [facility] HospitalComment on above:Performed By: #### CMP, HSTROPN, TSH #### [facility] [address] [address] [address] Belgica Kruger gap [Moles/Vol]10.8 mmol/LNormalThe [facility] on above:Performed By: #### CMP, HSTROPN, TSH #### [facility] [address] [address] [address] Belgica LlanesAST [Catalytic activity/Vol]11 U/LCritically jec21-14Euf [facility] HospitalComment on above:Performed By: #### CMP, HSTROPN, TSH #### [facility] [address] [address] [address] Belgica LlanesBilirubin [Mass/Vol]0.2 mg/dLNormal0.2-1.0The [facility] Comment on above:Performed By: #### CMP, HSTROPN, TSH #### [facility] [address] [place] [address] Dr. Belgica LlanesCalcium [Mass/Vol]8.6 mg/dLNormal8.5-10.1The [facility] Comment on above:Performed By: #### CMP, HSTROPN, TSH #### [facility] [address] [place] [address] Dr. Belgica LlanesChloride [Moles/Vol]103 mmol/OBcvyvf78-801Kbi [facility] Comment on above:Performed By: #### CMP, HSTROPN, TSH #### [facility] [address] [place] [address] Dr. Belgica LlanesCO2 [Moles/Vol]26.7 mmol/XLvnmha58.0-32.0The [facility] Comment on above:Performed By: #### CMP, HSTROPN, TSH #### [facility] [address] [place] [address] Dr. Belgica LlanesCreatinine [Mass/Vol]0.85 mg/dLNormal0.55-1.02The [facility] HospitalComment on above:Performed By: #### CMP, HSTROPN, TSH #### [facility] [address] [place] [address] Dr. Belgica LepeGFR-AF MEXICAN>60Normal>=60The [facility] HospitalComment on above:Performed By: #### CMP, HSTROPN, TSH #### [facility] [address] [place] [address] Dr. Belgica LepeGFR-NON AF MEXICAN>60Normal>=60The [facility] HospitalComment on above:Performed By: #### CMP, HSTROPN, TSH #### [facility] [address] [place] [address] Dr. Belgica LlanesGlobulin (S) [Mass/Vol]3.8 g/dLNormalThe [facility] HospitalComment on above:Performed By: #### CMP, HSTROPN, TSH #### [facility] [address] [address] [address] Belgica LlanesGlucose [Mass/Vol]97 mg/zHDwgsxn87-500Hvt [facility] Comment on above:Performed By: #### CMP, HSTROPN, TSH #### [facility] [address] [address] [address] Belgica LlanesPotassium [Moles/Vol]3.5 mmol/LNormal3.5-5.1The [facility] Comment on above:Performed By: #### CMP, HSTROPN, TSH #### [facility] [address] [address] [address] Belgica LlanesProtein [Mass/Vol]7.5 g/dLNormal6.4-8.2The [facility] Comment on above:Performed By: #### CMP, HSTROPN, TSH #### [facility] [address] [place] [address] Dr. Belgica LlanesSodium [Moles/Vol]137 mmol/VVvyptb203-581LmgSelect [facility] [place] Comment on above:Performed By: #### CMP, HSTROPN, TSH #### [facility] [address] [place] [address] Dr. Belgica LlanesUrea nitrogen [Mass/Vol]9.0 mg/dLNormal7.0-18.0[facility]Comment on above:Performed By: #### CMP, HSTROPN, TSH #### [facility] [address] [place] [address] Dr. Belgica Watson nitrogen/Creatinine [Mass ratio]10.6 mg/mgNormalThe [facility] HospitalComment on above:Performed By: #### CMP, HSTROPN, TSH #### [facility] [address] [place] [address] Dr. Belgica Barrett, HIGH SENSITIVITYon 49-90-7833YRURZL8.5 pg/mLNormal 4.0-51.3The [facility] HospitalComment on above:Result Comment: CUT-OFF POINTS HAVE BEEN ESTABLISHED BASED ON THE FOURTH UNIVERSAL DEFINITIONS OF MYOCARDIAL INFARCTION. THE UPPER REFERENCE LIMIT (URL) OF TROPONIN, DEFINED THE 99TH PERCENTILE OF cTnI DISTRIBUTION IN A REFERENCE POPULATION, HAS BEEN CONFIRMED THE DECISION THRESHOLD FOR CT DIAGNOSIS.Performed By: #### CALDERON LOPEZ, TSH #### [facility] [address] [address] [address] Belgica Cabrera 81-55-7279COT9.228 uIU/mLNormal0.358-3.740The [facility] HospitalComment on above:Performed By: #### CMP HSTROPErick, TSH #### [facility] [address] [address] [address] Belgica LlanesXR CHEST 1 Von [id number] CHEST 1 VEXAM: XR CHEST 1 V, [...] Electronically authenticated by: MARITZA GORE Date: 2022-10-08 19:41[facility] Medical CenterCOVID Quick Testingon [id number] [employer]ensing [employer] Other INSULINon 15-78-6052Eufyzkt61.1 uIU/mLNormal2.6-24.9 The [facility] HospitalComment on above:Performed By: #### DDIM #### [facility] [address] [place] [address] Dr. Belgica LlanesCBC AUTO DIFFon [id number] #0.0 103/ulNormal0.0-0.1The [facility] HospitalComment on above:Performed By: #### CBC #### [facility] [address] [place] [address] Dr. Belgica LlanesBasophils/100 WBC (Bld)0.6 %Normal0.2-2.0The [facility] Comment on above:Performed By: #### CBC #### [facility] [address] [place] [address] Dr. Belgica Calabrese #0.1 103/ulNormal0.0-0.7The [facility] HospitalComment on above: Performed By: #### CBC #### [facility] [address] [place] [address] Dr. Belgica Lepeosinophils/100 WBC (Bld)2.7 %Normal0.9-7.0The [facility] Comment on above:Performed By: #### CBC #### [facility] [address] [place] [address] Dr. Belgica Leperythrocyte distribution width (RBC) [Ratio]14.1 %Frjcnf23.0-15.0 [facility]Comment on above:Performed By: #### CBC #### [facility] [address] [place] [address] Dr. Belgica LlanesHematocrit (Bld) [Volume fraction]33.7 %Critically low36.0-48.0 [facility] CincinnatiComment on above:Performed By: #### CBC #### [facility] [address] [place] [address] Dr. Belgica LlanesHemoglobin (Bld) [Mass/Vol]12.4 g/nKSkqxhs28.0-16.0The [facility] HospitalComment on above:Performed By: #### CBC #### [facility] [address] [place] [address] Dr. Belgica Stanley #0.01 10e3/ulNormal0.00-0.03The [facility] HospitalComment on above:Performed By: #### CBC #### [facility] [address] [place] [address] Dr. Belgica Stanley %0.3 %Normal0.0-0.5The [facility] HospitalComment on above: Performed By: #### CBC #### [facility] [address] [place] [address] Dr. Belgica Wells #1.3 103/ulNormal1.2-3.8The [facility] HospitalComment on above:Performed By: #### CBC #### [facility] [address] [place] [address] Dr. Belgica Washingtonmphocytes/100 WBC (Bld)37.8 %Vyrazr41.5-60.0The [facility] HospitalComment on above:Performed By: #### CBC #### [facility] [address] [place] [address] Dr. Belgica Carrizales DIFF REQNONormalThe [facility] HospitalComment on above: Performed By: #### CBC #### [facility] [address] [place] [address] Dr. Belgica Rapp (RBC) [Entitic mass]32.6 eiXmjlsm23.7-34.0The [facility] HospitalComment on above:Performed By: #### CBC #### [facility] [address] [place] [address] Dr. Belgica Rapp (RBC) [Mass/Vol]36.8 g/dLCritically high29.9-35.2The [facility] HospitalComment on above:Performed By: #### CBC #### [facility] [address] [place] [address] Dr. Belgica Aguirre (RBC) [Entitic vol]88.7 yGGwsguo57.0-99.0The [facility] HospitalComment on above:Performed By: #### CBC #### [facility] [address] [place] [address] Dr. Belgica Galdamez #0.2 103/ulCritically low0.3-0.8The [facility] HospitalComment on above:Performed By: #### CBC #### [facility] [address] [place] [address] Dr. Belgica Escotoocytes/100 WBC (Bld)6.3 %Normal1.7-12.0The [facility] Comment on above:Performed By: #### CBC #### [facility] [address] [place] [address] Dr. Belgica Adams #1.7 103/ulNormal1.4-6.5The [facility] HospitalComment on above:Performed By: #### CBC #### [facility] [address] [place] [address] Dr. Belgica Ivyutrophils/100 WBC (Bld)52.3 %Hthxqu09.0-75.0The [facility] HospitalComment on above:Performed By: #### CBC #### [facility] [address] [place] [address] Dr. Belgica Walterlet mean volume (Bld) [Entitic vol]9.1 fLCritically low 9.5-13.5The [facility] HospitalComment on above:Performed By: #### CBC #### [facility] [address] [place] [address] Dr. Belgica VasquezT272 103/odSadame048-878Esu [facility] HospitalComment on above: Performed By: #### CBC #### [facility] [address] [place] [address] Dr. Belgica LlanesRBC3.80 106/ulCritically low4.20-5.40The [facility] HospitalComment on above:Performed By: #### CBC #### [facility] [address] [place] [address] Dr. Belgica LlanesWBC3.3 103/ulCritically low4.0-11.0The [facility] HospitalComment on above:Performed By: #### CBC #### [facility] [address] [place] [address] Dr. Belgica Dela Cruz THYROXINE INDEX T7on 73-24-6682XPZ3.85Ykqrqw5.30-4.50The [facility] HospitalComment on above:Performed By: #### DDIM #### [facility] [address] [place] [address] Dr. Belgica LlanesT3U35.0 %Tgqwfb22.0-39.0The [facility] HospitalComment on above: Performed By: #### DDIM #### [facility] [address] [place] [address] Dr. Belgica LlanesT4 [Mass/Vol]6.70 ug/dLNormal4.80-13.90[facility] Comment on above:Performed By: #### DDIM #### [facility] [address] [place] [address] Dr. Belgica LlanesGLYCOHEMOGLOBIN A1Con 14-48-1117EYN RECOMMENDATIONSEE BELOWNoNewark HospitalComment on above:Result Comment: ADA RECOMMENDED LIMIT 4.0 - 6.0 ADA THERAPEUTIC TARGET < 7.0 ACTION SUGGESTED > 7.0Performed By: #### A1C #### [facility] [address] [place] [address] Dr. Belgica LlanesGlucose [Mass/Vol]94 mg/vDInkgqw72-565QwiSelect Medical Specialty Hospital [facility] [place] Comment on above:Performed By: #### A1C #### [facility] [address] [place] [address] Dr. Belgica LlanesPerformed By: #### DDIM #### [facility] [address] [place] [address] Dr. Belgica LlanesHbA1c (Bld) [Mass fraction]4.9 %Normal4.5-6.2[facility] CincinnatiComment on above:Performed By: #### A1C #### [facility] [address] [place] [address] Dr. Belgica Moreno 91-42-9449Elow [Mass/Vol]69.0 ug/kSAsdari46.0-170.0[facility] CincinnatiComment on above:Performed By: #### DDIM #### [facility] [address] [place] [address] Dr. Belgica LlanesLIPID PROFILEon [id number]-HDL RATIO NORMSEE [facility] HospitalComment on above:Result Comment: 3.3 - 4.4 LOW RISK 4.4 - 7.1 AVERAGE RISK 7.1 - 11.0 MODERATE RISK >11.0 HIGH RISKPerformed By: #### DDIM #### [facility] [address] [place] [address] Dr. Belgica LlanesCholesterol [Mass/Vol]151 mg/dLNormal<=200The [facility] Comment on above:Performed By: #### DDIM #### [facility] [address] [address] [address] Belgica LlanesCholesterol in HDL [Mass/Vol]49 mg/cQLuiwdw65-29NosSelect Medical Specialty Hospital - CincinnatiComment on above:Performed By: #### DDIM #### [facility] [address] [address] [address] Belgica LlanesCholesterol in LDL [Mass/Vol]84.8 mg/dLMetroHealth Main Campus Medical CenterComment on above:Performed By: #### DDIM #### [facility] [address] [address] [address] Belgica Cruz.total/Cholesterol in HDL [Mass ratio]3.1 {ratio} NormalSelect Medical Specialty Hospital - CincinnatiComment on above:Performed By: #### DDIM #### [facility] [address] [address] [address] Belgica Allen NORMAL> or = 60 mg/dl - LOW CARDIOVASCULAR RISK <40 mg/dl - HIGH CARDIOVASCULAR RISKMetroHealth Main Campus Medical CenterComment on above:Performed By: #### DDIM #### [facility] [address] [address] [address] Belgica Dowling CALC NORMALSEE BELOWMetroHealth Main Campus Medical CenterComment on above:Result Comment: <100 mg/dl OPTIMAL 100 - 129 mg/dl NEAR OR ABOVE OPTIMAL 130 - 159 mg/dl BORDERLINE HIGH 160 - 189 mg/dl HIGH >190 mg/dl VERY HIGH Performed By: #### DDIM #### [facility] [address] [address] [address] Belgica LlanesTriglyceride [Mass/Vol]86 mg/dLNormal<=150[facility] Comment on above:Performed By: #### DDIM #### [facility] [address] [address] [address] Belgica NaranjoLDL CALC17.2 mg/dLNoSt. Vincent HospitalComment on above: Performed By: #### DDIM #### [facility] [address] [address] [address] Belgica CurryF 14(COMP METB)on 23-70-5801Hnbpnbh [Mass/Vol]3.6 g/dLNormal 3.4-5.0The [facility] HospitalComment on above:Performed By: #### DDIM #### [facility] [address] [place] [address] Dr. Belgica LlanesAlbumin/Globulin [Mass ratio]1.0 {ratio}NormalThe [facility] HospitalComment on above:Performed By: #### DDIM #### [facility] [address] [place] [address] Dr. Belgica CorbettP [Catalytic activity/Vol]71 U/KMscgdv43-803Ffv [facility] HospitalComment on above:Performed By: #### DDIM #### [facility] [address] [place] [address] Dr. Belgica CorbettT [Catalytic activity/Vol]23 U/XAvzxtd58-06Mhw [facility] HospitalComment on above:Performed By: #### DDIM #### [facility] [address] [place] [address] Dr. Belgica Kruger gap [Moles/Vol]10.8 mmol/LNormalThe [facility] Comment on above:Performed By: #### DDIM #### [facility] [address] [place] [address] Dr. Belgica LlanesAST [Catalytic activity/Vol]12 U/LCritically tpg60-18Rfi [facility] HospitalComment on above:Performed By: #### DDIM #### [facility] [address] [place] [address] Dr. Belgica LlanesBilirubin [Mass/Vol]0.4 mg/dLNormal0.2-1.0The [facility] Comment on above:Performed By: #### DDIM #### [facility] [address] [place] [address] Dr. Belgica LlanesCalcium [Mass/Vol]8.7 mg/dLNormal8.5-10.1The [facility] Comment on above:Performed By: #### DDIM #### [facility] [address] [address] [address] Belgica LlanesChloride [Moles/Vol]106 mmol/IFcmgxs95-714Yhf [facility] Comment on above:Performed By: #### DDIM #### [facility] [address] [address] [address] Belgica LlanesCO2 [Moles/Vol]29.2 mmol/RLgbgpd92.0-32.0The [facility] Comment on above:Performed By: #### DDIM #### [facility] [address] [address] [address] Belgica LlanesCreatinine [Mass/Vol]0.80 mg/dLNormal0.55-1.02The [facility] HospitalComment on above:Performed By: #### DDIM #### [facility] [address] [address] [address] Belgica LepeGFR-AF MEXICAN>60Normal>=60The [facility] HospitalComment on above:Performed By: #### DDIM #### [facility] [address] [address] [address] Belgica LepeGFR-NON AF MEXICAN>60Normal>=60The [facility] HospitalComment on above:Performed By: #### DDIM #### [facility] [address] [address] [address] Belgica LlanesGlobulin (S) [Mass/Vol]3.7 g/dLNormalThe [facility] HospitalComment on above:Performed By: #### DDIM #### [facility] [address] [address] [address] Belgica LlanesPotassium [Moles/Vol]4.0 mmol/LNormal3.5-5.1The [facility] Comment on above:Performed By: #### DDIM #### [facility] [address] [address] [address] Belgica LlanesProtein [Mass/Vol]7.3 g/dLNormal6.4-8.2The [facility] Comment on above:Performed By: #### DDIM #### [facility] [address] [place], [place] [address] Dr. Belgica LlanesSodium [Moles/Vol]142 mmol/FYqnvnc704-077Aeo [facility] Comment on above:Performed By: #### DDIM #### [facility] [address] [address] [address] Belgica LlanesUrea nitrogen [Mass/Vol]8.0 mg/dLNormal7.0-18.0The [facility] HospitalComment on above:Performed By: #### DDIM #### [facility] [address] [address] [address] Belgica Watson nitrogen/Creatinine [Mass ratio]10.0 mg/mgNoalThe [facility] HospitalComment on above:Performed By: #### DDIM #### [facility] [address] [address] [address] Belgica Cabrera 98-72-1485TFO0.206 uIU/mLNormal0.358-3.740The [facility]aritan HospitalComment on above:Performed By: #### DDIM #### [facility] [address] [address] [address] Belgica Bowles Quick Testingon 16-32-8366MzukqrBkprvftzLaovu [employer] Other Quick Fluon 00-32-4811COAOE Ab CF (S) [Titer]Negative [place] [employer] Other FLUBV Ab CF (S) [Titer]NegativeYakima [facility]it Mobile Other COVID Quick Testingon 59-35-5489HsshccFfjikmwrGbgiu [employer] Other Urine Cultureon 07-57-2896Rblwgfth identified Cx Nom (U)Reason for Exam Dysuria Urine Reason for Exam: Dysuria : Urine <9,000 colonies/ml mixed bacterial skin contaminants 2 Days PERFORMED BY: [address] [place] [address] PATHOLOGIST BRAND ADVOCATE JUS PORRAS M.D.[facility]ayette Medical CenterComment on above: Performed By: #### CUU #### [facility] [address] Vital Signs Date TimeVital SignValuePerforming UtkhajdobHiixqesl34-81-4589 14:12-0500Body chzluq598.3 cmTanya Cr DO Work Phone: [facility] Nrewzx65-04-8167 14:12-0500Body mass index (BMI) [Ratio]35.65 kg/l1Jhzal Cr DO Work Phone: [facility] Cxkmei46-18-5543 14:12-0500Body jnarhn366.5 kgTanya Cr DO Work Phone: [facility] Uctykt15-29-2830 14:12-0500Diastolic blood ddfunpva24 mm[Hg]Dionne Cr DO Work Phone: [facility] Gjlcxa23-70-9256 14:12-0500Systolic blood oqmuctbu204 mm[Hg]Dionne Cr DO Work Phone: [facility] Yxfyqk43-68-6009 13:28-0500Body pqwaqx620.3 cmLisa Krotzer [employer] Work Phone: [facility] Ukmnpe11-72-5114 13:28-0500Body mass index (BMI) [Ratio]35 kg/m2Lisa Krotzer [employer] Work Phone: [facility] Ihbrto33-84-2525 13:28-0500Body .5 kgLisa Krotzer [employer] Work Phone: [facility]uc[facility]iale01-15-2025 13:28-0500Diastolic blood gbcjzdqo52 mm[Hg]Lilly Krotzer [employer] Work Phone: [facility] Hospital[facility]Price[facility] Jwclov40-37-9382 13:28-0500Systolic blood rixfhofy107 mm[Hg]Lilly Krotzer [employer] Work Phone: [facility] HospitalFreePriceAlert[facility] Yxpvli09-36-9275 14:10-0400Body toxntj424.26 [facility] 14:10-0400Body mass index (BMI) [Ratio]33 kg/o9IokcrktdrBerger Hospital05-04-2024 14:10-0400Body wejsdygktdb47.6 [degF][facility]05-04-2024 14:10-0400Body ipcgkg300.32 kgBer[facility]05-04-2024 14:10-0400Heart rate56 /[facility]05-04-2024 14:10-0400Respiratory rate18 /[facility]05-04-2024 14:10-2298EhM1% (BldA) [Mass fraction]98 %[facility] 10-16-2023 13:20-0500Blood Pressure LocationMichael NILL [facility]12-13-2023 13:20-0500Diastolic blood jetrrhib58 mm[Hg]Slade NILL [facility] Kvmxqrkm25-52-0298 13:20-0500Heart rate 72 /minMichael NILL [facility]12-13-2023 13:20-0500 Respiratory rate15 /minMichael NILL [facility]12-13-2023 13:20-0500Systolic blood qljyncmt887 mm[Hg]Slade NILL [facility]10-23-2023 16:15-0400Body rfzbar101.26 cmJakobkaitlynn Barnhartmariely Other [facility] Other 10-23-2023 16:15-0400Body mass index (BMI) [Ratio] 33.52 kg/i9Lmrtlc Rutmariely Other [facility] Other 10-23-2023 16:15-0400Body tpdvhqurdea84.4 [degF]Smiley Harrell Other [facility] Other 10-23-2023 16:15-0400Body komles777.97 kgSmiley Harrell Other [facility] Other 10-23-2023 16:15-0400Diastolic blood ynbqvvla71 mm[Hg] Smiley Harrell Other [facility] Other 10-23-2023 16:15-0400Respiratory rate18 /minSmiley Harrell Other [facility] Other 10-23-2023 16:15-7302AjM2% (BldA) [Mass fraction]97 % Smiley Harrell Other [facility] Other 10-23-2023 16:15-0400Systolic blood meusfazi132 mm[Hg] Smiley Harrell Other [facility] Other 01-09-2022 14:00-0500Body umwquy002.26 cmAmber Ginty Other [facility] Other 01-09-2022 14:00-0500Body mass index (BMI) [Ratio] 30.71 kg/n9Oefku Ginty Other [facility] Other 01-09-2022 14:00-0500Body wvpdlcrbydp03.1 [degF]Caterina Collinsntcontreras Other [facility] Other 01-09-2022 14:00-0500Body eeyumu61.35 kgAmber Ginty Other [facility] [employer] Other 01-09-2022 14:00-0500Respiratory rate20 /minCaterina Collinsarjuncontreras Other noAvimoto Other 01-09-2022 14:00-6727IpE2% (BldA) [Mass fraction]99 % Caterina Alicia Other [facility] [employer] Other 11-28-2021 11:00-0500Body .26 cmPamela Karma Other [facility] Other 11-28-2021 11:00-0500Body mass index (BMI) [Ratio] 30.27 kg/g7Xndlxwmary Parada Other [facility] Other 11-28-2021 11:00-0500Body fthjubevdmi11.9 [degF]Lisandra Parada Other [facility] Other 11-28-2021 11:00-0500Body ayaufz57.99 kgPamary Parada Other [facility] Other 11-28-2021 11:00-0500Respiratory rate18 /minLisandra Parada Other [facility] Other 11-28-2021 11:00-2545HaU8% (BldA) [Mass fraction]99 % Lisandra Leimond Other [facility] Other Encounters Encounter DateEncounter TypeCare ProviderFacilityStart: 09-07-2025 End: 50-41-6308othmwffqvaXfuhpfp R NILLFacility:JOHN Murillotart: 09-07-2025 End: 91-43-3505Qgimoiw encounter procedureMichael R NILL [phone]-VpbnfSum[facility] [place] Start: 12-15-2024 End: 12-69-0265Xxugkp outpatient visit 15 minutesDionne Megan Cr DO Work Phone: [facility] Obstetrics/GynecologyComment on above:Menorrhagia with regular cycle (Primary Dx); Dysmenorrhea; Iron deficiency anemia due to chronic blood lossStart: 12-15-2024 End: 39-02-5216tksseibprxTCTLT L [facility] Ambulatory PPGStart: 12-02-2024 End: 26-94-3140blzeerqiwzFLQW [facility] HOSPITALTRACEYFostoria City Hospitaltart: 11-18-2024 End: 07-07-8033Gbsdyld preventive medicine new pt age 18-39yrsLilly Francis [employer] Work Phone: [facility] Obstetrics/GynecologyComment on above:Well woman exam with routine gynecological exam (Primary Dx); Standardized adult depression screening tool completed; Pelvic pain; Cervical smear, as part of routine gynecological examinationStart: 11-18-2024 End: 84-59-0471Vuzsqqe encounter procedureLilly Francis [employer] Work Phone: [facility] Work Phone: Start: 11-18-2024 End: 64-02-5427vsddxhdhcsEKGJ M KROTZERMarietta Osteopathic Clinic Ambulatory PPGStart: 11-18-2024 End: 11-26-4960Uegxulxnr for gynecological examination (general) (routine) without abnormal findingsLilly Francis [employer] Work Phone: [facility] Hospitalt[facility]: 11-18-2024 End: 79-80-4271pgpxnhacuhBIXV M KROTZERFostoria City Hospitaltart: 95-06-0246Akizkhgad for gynecological examination (general) (routine) without abnormal findingsLILLY FRANCISProMedica Sutter Auburn Faith Hospitaltart: 03-07-2024 End: 33-79-3222uahhefbxcuPezcyymuvWilson [address] Hospital Work Phone: Start: 03-07-2024 End: 27-77-0561Haviqhr encounter procedureAt[facility] Health [facility] Work Phone: Start: 10-16-2023 End: 69-27-7674Jnspnyq encounter procedureMichael R NILL General Surgery Nill/Said [place] Start: 08-26-2023 End: 04-82-4755eytlvkteuxSamulz Ruttino Other [facility] [employer] Other Start: 31-34-2553Kikrkc outpatient visit 15 minutes Smiley Martin [facility] ClydeStart: 03-19-2023 End: 23-09-5918jlpnchzobwYR HERB HOY .Facility:T2Yjxmm: 02-27-2023 End: 00-32-5768ffxxhvnrmiVV HERB HOY .Facility:V4Dqytn: 02-25-2023 End: 69-33-7274fqosmgkgajEB HERB HOY .Facility:V5Jvqey: 12-25-2022 End: 42-82-2668aheuionsylKN HERB HOY .Facility:M7Bwyqv: 12-25-2022 End: 72-59-5632mjcknbchpfKI HERB HOY .Facility:Z8Pmjgb: 10-08-2022 End: 30-62-7671wdoiaziqbbPI ANA DAVIESLEONARDO .Facility:Y9Eakok: 07-06-2022 ambulatoryDR HERB HOY .Facility:H5Oincv: 06-22-2022 End: 45-48-5136edffxrthfdLeycoubyd Breault Other [facility] [employer] Other Start: 75-21-0222Bjtdqvjpo for other preprocedural examinationSlevi Arguello [facility] Care ClydeStart: 55-21-1232Psyehk outpatient visit 5 minutesStephankaitlynn JonesaultFPG Urgent Care ClydeStart: 18-20-9709Bjrevcnki for general adult medical examination without abnormal findingsDR HERB HOY .[facility] Centertart: 05-31-2022 End: 13-70-9710gqwndwobizBH HERB HOY .Facility:B5Lxkcy: 05-31-2022 End: 89-56-2129Ffuddkiug for general adult medical examination without abnormal findingsDR HERB HOY .Facility:S9Cfokc: 11-12-2021 End: 51-15-6900bhakwbxyzgRkftk Karinanty Other noMOLI [employer] Other Start: 88-14-7360Ymxwdo outpatient visit 15 minutes Caterina GintyFPG Urgent Care ClydeStart: 10-01-2021 End: 43-50-3347eynebdcswkCbutza Dymond Other [facility] [employer] Other Start: 11-87-8529Napbcu outpatient visit 15 minutes Lisandra DymondFPG [facility] Procedures DateProcedureProcedure DetailPerforming ClinicianStart: 16-34-0730Tdand depression screening assessmentLisa Penny [employer] Work Phone: Start: 60-29-7264Qxxmtulhdvb observation [Identifier] in Cervix by Cyto Roberth Cr DO Work Phone: Start: 78-32-5081Nrezo Strep (POC)Start: 12-10-2023 EsophagogastroduodenoscopyMichael NILL AbdominoplastyMichael NILL Ligation of fallopian tubeMichael NILL Plan of Treatment DateCare ActivityDetailAuthorStart: 62-94-2623Pgfcwltly for malignant neoplasm of cervixPap SmearProKing'S Daughters Medical Center Ohioca Health SystemStart: 01-72-0275Wkvedpn Screening Tobacco ScreeningProFirelands Regional Medical [facility] Campus SystemStart: 75-56-4624Sfeib BMI Follow Up PlanAdult BMI Follow Up PlanProFirelands Regional Medical [facility] Campus SystemStart: 01-71-0322Hrqvf BMI ScreeningAdult BMI ScreeningProAdams County Hospitaltart: 83-67-2438Nxsgolsqmx ScreeningDepression ScreeningProAdams County Hospitaltart: 49-19-5040Lnpzpwr ScreeningTobacco ScreeningProAdams County Hospitaltart: 12-15-2024 End: 64-35-1608Hkslfav encounter ryzdxyrkp13/11/2025 2:00 PM EST Office Visit [facility] [address] [place] [address] Dionne Cr DO [address] [place] [address] [facility]stetrics/GynecologyStart: 11-18-2024 End: 62-06-7210Cykvsuykcvrcm procedure, preparation of smear, genital sourcePap Smear Pathology and Cytology Routine Cervical smear, as part of routine gynecological examination Expected: 11/18/2024 (Approximate), Expires: 11/18/2025[facility] HospitalComment on above:Expected: 11/18/2024 (Approximate), Expires: 11/18/2025Start: 11-18-2024 End: 34-68-5212CP Pelvis transabdominal and transvaginalUltrasound pelvic with transvaginal Imaging Routine Pelvic pain Expected: 11/18/2024, Expires: 11/18[facility] Work Phone: Comment on above:Expected: 11/18/2024, Expires: 11/18/2025Start: 13-65-5555Hshjesmtk vaccinationInfluenza VaccineProAdams County Hospitaltart: 34-01-0288Sjtvpshjf for malignant neoplasm of cervixPap SmearProAdams County Hospitaltart: 37-24-6292QAzC,Tdap and Td Vaccines (1 - Tdap)DTaP,Tdap and Td Vaccines (1 - Tdap)[facility] Zapproved [facility] End: 12-78-6280Kboc risk HPV w/genoHigh risk HPV w/charly Lab Routine Cervical smear, as part of routine gynecological examination 1 Occurrences starting 11/18/2024 until 11/18/2025ProFirelands Regional Medical Center South Campus SystemComment on above:1 Occurrences starting 11/18/2024 until 11/18/2025 Immunizations Immunization DateImmunizationNotesCare ProviderFacilityNEGATED: Highlighted row has not occurred!77-28-4853xbsicjwtg virus vaccine, unspecified formulation Slade BUSTAMANTE General Surgery [place] Payers DatePayer CategoryPayerPolicy [id number] Valley Hospital Managed [facility] - OtherCAROLIN[facility] Member Subscriber Plan / Payer (Effective 2024-Present) Name: MikiYuki ulrichne Relation to Subscriber: Self Name: Yuki Littlene Payer ID: [id number] (NAIC) Type: Not on file Address: [id number] [place] [id number] [id number] 2..1.685890.3.57[id number] 2..1.177460.3.57[id number] 2..1.312306.3.57[id number] 2..1.015914.3.57[id number] 2..1.966553.3.579.[id number] 2..1.009290.3.57[id number] 2.16.840.1.217006.3.579.[id number] 2.16.840.1.847973.3.579.[id number] 2.16.840.1.724696.3.579.[id number] 2.16.840.1.044628.3.57[id number] 2.16.840.1.436332.3.579.[id number] 2.16.840.1.685719.3.57[id number] 2.16.840.1.011577.3.579.2.50361-35-1234IwyzAlbuquerque Indian Dental [id number] 2.16.840.9.412528.29844648-65-8247Wqgi-[id number] Social History DateTypeDetailFacilityUnknown if ever smokedNohermann area district hospital [employer] Other Start: 11-18-2024 End: 55-52-8206Ncg Assigned At [facility] CenterStart: 10-16-2023 End: 91-17-5257Gpwxvzz smoking statusEx-smoker (finding)General Surgery [place] Tobacco smoking statusNeverGeneral Surgery BellevueStart: 57-26-6528Hit Assigned At [facility] Hospitaltart: 29-12-9704Hkcgkez smoking status NHISNever smoked tobaccoProFirelands Regional Medical Center South Campus SystemStart: 48-23-5737Parnenl use and exposureSmokeless tobacco non-userC[facility] Clinic Luther[facility] Hospital SystemStart: 11-18-2024 End: 36-52-8576Twzyredkp beverage intakeCurrent drinker of alcohol (finding) [facility] SystemStart: 11-18-2024 End: 24-87-6114Ntwhayp of Social functionOhioHealth Hardin Memorial HospitalFreePriceAlerts SystemStart: 10-70-1001Qmcesoi CommentsocialProAdams County Hospitaltart: 65-92-9893Oog assigned at birthNot on fileSt Johnsbury HospitalTall Oak Midstream SystemStart: 06-09-2015 End: 90-72-8354EswHreimt (finding)[facility] Zapproved SystemSexual Orientation [facility] General Surgery [place] Functional Status UgxzDckgkhemlgBtfqkiUulumood82-81-4069Ricfytiyqm StatusN/AGeneral Surgery [place] Clinical Notes 10-01-2021 to 09-07-2025 Note Date & VnqnYvtjBybvxrzg27-58-4883 NoteGeneral Surgery Office/Clinic Note Chief Complaint consultation for cholelithiasis HPI Staff 34 year old female presents on consultation from Dr. Andrade for cholelithiasis. Presented to [facility] 08/24 with complaint of epigastric pain that started one hour prior to arrival. Labs completed were unremarkable. CT abdomen/pelvis and abdominal US with cholelithiasis. EGD completed 11/2023 with chronic inactive gastritis. History of Present Illness 34 yo female with h/o migraines, chronic GERD, referred for upper abd/back pain; patient reports acute onset of upper abd pain 08/24/25, began 1 hour prior to presenting to [facility] ED; describes as pressure, stabbing, radiated around to back; some nausea, no emesis; resolved in ED after Toradol; work up in ED with normal labs; negative abd/pelvic ct scan; US with small amount of sludge in body of gallbladder, possibly small stones, no ductal dilation or GB wall thickening; day prior patient had frequent loose stools, unrelated to eating, no blood or mucous; patient has had several episodes of milder pain since ED visit, some several hours after lunch, but was low fat; one episode after just drinking coffee; all episodes preceded by loose watery stools the day prior; abd operations significantfor tubal ligation and abdominoplasty; no asa or NSAID use; no tobacco use; fmhx of ulcerative colitis in patient's daughter; no fmhx of colon cancer. Review of Systems PHQ Score Initial Depression [...] noncontributory. Physical Exam Vitals & Measurements HR: 76(Peripheral) RR: 16 BP: 126/80 HT: 69 in HT: 175.2 cm WT: 264.113 lb WT: 119.8 kg BMI: 39.03 HEENT: normal conjunctiva, sclera clear, no scleral icterus, EOM intact, PERRLA, oral mucosa moist without lesions. Neck: trachea midline, no mass, symmetric, no thyromegaly or nodules, no adenopathy Respiratory: lungs CTA, respirations non labored. Cardiovascular: regular rate and rhythm, no murmur, no pedal edema or varicosities. Gastrointestinal: obese, soft, non distended, mild tenderness, right CVA and rib cage no masses, nopalpable hernias, diastasis recti no, no hepatosplenomegaly; normal bs Musculoskeletal: normal gait, digits and nails without infection, nodes, cyanosis, clubbing. Skin: no rashes, no lesions, no ulcers, no subcutaneous nodules, induration. Psychiatric/Neuro: oriented to time, place, person, judgement normal, affect appropriate for age, insight intact, no focal deficits. Tests: labs reviewed, x-rays reviewed, review of old records completed , Discussed surgical options, risks, and possible complications with patient. Assessment/Plan 1. Change in bowel habits (R19.4: Change in bowel habit) plan EGD and colonoscopy with anesthesia for further evaluation, informed consent obtained. 2. Epigastric pain (R10.13: Epigastric pain) see # 1 3. Chronic GERD (K21.9: Gastro-esophageal reflux disease without esophagitis) see # 1 Ordered: omeprazole, 40 mg = 1 cap(s), Oral, Daily, # 30 cap(s), Refills(s) 3, Pharmacy: [id number], 172.5, cm, 10/16/23 13:24:00 EST, Height/Length Dosing, 103, kg, 10/16/23 13:24:00 EST, Weight Dosing 4. Right upper quadrant abdominal pain (R10.11: Right upper quadrant pain) see # 1; sludge, possible small stones in body of gallbladder, nonobstructing; no wall thickening or distension; no ductal dilation; normal labs; US unchanged from 2022; if endoscopy negative, will likely proceed with cholecystectomy, unclear if this is etiology of her symptoms. 5. Family history of ulcerative colitis (Z83.79: Family history of other diseases of the digestive system) see # 1 Follow-up No qualifying data available Problem List/Past Medical History Ongoing Anxiety BMI 39.0-39.9,adult Change in bowel habits Cholelithiasis Chronic GERD Dysphagia Epigastric pa (more content not included)...[facility] HospitalComment on above:Result Comment: Electronically Signed By: DIANNA NAVA, Slade Phelps\Date and Time Signed: 09/07/25 14:49 [id number] History of Present illness Narrative* Dionne Cr, - 12/15/2024 2:00 PM EST Subjective Patient [...] schedule a preoperative visit. documented in this encounterSt[facility] History of Present illness Narrative* Lilly Francis APRN-PASHA - 11/18/2024 1:30 PM EST Annual Well Woman Visit 11/18/2024 Fan Little is a pleasant 34 y.o. 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 Follow up as needed. Await pap. Discussed ASCCP screening guidelines. Discussed taking a multivitamin. Discussed Calcium and Vitamin D for prevention of osteoporosis. Discussed need for yearly mammogram after 40 yo. Discussed colon cancer screening recommendations to begin at 45 yo, patient to discuss with PCP. All questions answered. JOVITA Warner APRN-CNP Lisa M Krotzer, APRN-CNP 11/18/24 1401 documented in this [facility]01-15-2025 Miscellaneous Notes* Addendum Note - Julio Duran LPN - 11/18/2024 1:30 PM ESTAddended by: JULIO DURAN on: 11/18/2024 02:40 PM Modules accepted: Orders documented in this encounterSt. Vincent Hospital01-15-2025 Note* Addendum Note - Julio Duran LPN - 11/18/2024 1:30 PM ESTAddended by: JULIO DURAN on: 11/18/2024 02:40 PM Modules accepted: Orders [facility] Zapproved [id number] Evaluation note* Encounter Date Diagnosis Assessment Notes [...] days, sooner with new or worsening symptoms. [facility] Other 08-19-2022 Evaluation note* Encounter Date Diagnosis Assessment Notes Treatment Notes Treatment Clinical Notes Jun, Preop testing (ICD-10 - Z01.818) [facility] Other 01-09-2022 Evaluation note* Encounter Date Diagnosis [...] Patient care instructions given in writting by [facility] document [facility] Other 11-28-2021 Evaluation note* Encounter Date Diagnosis [...] Patient care instructions given in writting by [facility] At Home document. [facility] Other Evaluation + Plan note No data available for this section General Surgery [place] Evaluation noteNo assessment information available [facility] Work Phone: Evaluation note* Diagnosis Well woman exam with routine gynecological exam- Primary Routine gynecological examination Standardized adult depression screening tool completed Pelvic pain Cervical smear, as part of routine gynecological examination Screening for malignant neoplasm of the cervix documented in this encounter [facility] SystemEvaluation note* Diagnosis Menorrhagia with regular cycle- Primary Dysmenorrhea Iron deficiency anemia due to chronic blood loss Iron deficiency anemia secondary to blood loss (chronic) documented in this encounter [facility] SystemHistory general Narrative - Reported* Type Description Date Medical History migraine headache Surgical Historytubal ligation [employer] [facility] [employer] Other History general Narrative - Reported* Type Description Date Medical History migraine headache Medical HistoryGERD (gastroesophageal reflux disease)Medical HistoryIron deficiencySurgical Historytubal ligation [employer] [facility] [employer] Other Hospital Discharge instructions No data available for this section General Surgery [place] Instructions* Attachments The following attachments cannot be sent through Care Everywhere. * Endometrial Ablation (Congolese) documented in this encounterCleveland Clinic Lutheran Hospital SystemInstructions* Attachments The following attachments cannot be sent through Care Everywhere. * Endometrial ablation (Congolese) documented in this encounterSt. Vincent HospitalProgress note No data available for this section General Surgery [place] Summary Purpose Family History No Family History [...] DATE CREATED AUTHOR AUTHOR'S ORGANIZ ATION 03/20/2023 [facility] DATE CREATED AUTHOR AUTHOR'S ORGANIZ ATION 12/04/2024 [facility] DATE CREATED AUTHOR AUTHOR'S ORGANIZ ATION 12/17/2024 [facility] DATE CREATED AUTHOR AUTHOR'S ORGANIZ ATION 09/09/2025 [facility] REASON FOR VISIT (unrecogniz ed section and content) ReasonCommentsGynecologic ExamPt is here for annual exam.ReasonCommentsConsult Ablation and removal of tubal clamps Patient Care team informatio n (unrecognized section and content) Team Status: Active Member Role Status Dates Herb Andrade MD Primary Care Provider Active Team Status: Inactive Member Role Status Dates Herb Andrade MD Primary Care Provider Active Start: March 07, 2024 End: March 07mandheraclio Avila , APRNAttending ProviderActiveStart: March 07, 2024 End: March 07, 2024Team MemberRelationshipSpecialtyStart DateEnd Date Herb Andrade MD [address] [id number] PCP - GeneralFamily Medicine12/02/24 Goals (unrecognized section [...] BE BASED ON THE PRIMARY CLINICAL RECORDS. [facility] [employer] [facility]. provides no warranty or guarantee of the accuracy or completeness of information in this document.
== END 2025-10-05 12:38 | disposition home or self-care (01) ==
LOC: PST 12:37
PROVIDERS: PCP Family Medicine; Visit Provider Surgery
DX: Z01.818 Encounter for other preprocedural examination (principal); R10.13 Epigastric pain; R10.11 Right upper quadrant pain; R19.4 Change in bowel habit

== ENCOUNTER 2025-10-06 07:59 | Day surgery (SDC) | payer BC, SELFPAY ==
--- NOTE | 2025-10-06 | OP_ITS ---
OPERATION DATE: 10/06/2025 PREOPERATIVE DIAGNOSIS: Epigastric and right upper quadrant abdominal pain, chronic GERD, bowel changes, family history of ulcerative colitis. POSTOPERATIVE DIAGNOSIS: Antral gastritis with erosion and area of sigmoid inflammation. PROCEDURE: EGD with antral biopsies and colonoscopy to terminal ileum with biopsy of sigmoid inflammation. SURGEON: Slade Cruz M.D. ANESTHESIA: Monitored anesthesia care. ESTIMATED BLOOD LOSS: Less than 1 mL. INDICATIONS AND CONSENT: Patient is a 35-year-old female with history of gastroesophageal reflux disease with intermittent upper abdominal pain for the last several months, as well as frequent loose stools. Indications, risks, benefits, alternatives of proceeding with EGD and colonoscopy were explained extensively to the patient, including the risks of bleeding, aspiration, esophageal/gastric/colonic perforation or anesthetic complications. All of her questions were answered. Informed consent was obtained. PROCEDURE: Patient brought to the operating room, placed in the left lateral decubitus position. Monitored anesthesia care was provided. Bite block was placed in the patient?s mouth. Scope was inserted into the oropharynx. Under direct visualization, it was advanced into the esophagus, past the cricopharyngeus, down to the stomach. The stomach was insufflated with air. The pylorus was traversed down to the descending portion of the duodenum. There was no evidence of duodenitis or ulceration. There was no scarring within the pyloric channel. Scope was pulled back into the stomach. There was noted to be some mild antral gastritis with linear erythema, as well as a superficial erosion, with no old or new blood. The scope was retroflexed. There was no significant hiatal hernia. Biopsies of the antral gastritis were obtained x2 with pediatric cold biopsy forceps. The GE junction was noted at approximately 39 cm. There was no distal esophagitis or Griggs?s changes. The remainder of the esophagus was unremarkable. The scope was then withdrawn. Patient was then positioned for colonoscopy. Rectal exam was performed, which showed no masses or blood. The scope was then inserted into the anal canal. Under direct visualization, it was advanced. With the aid of abdominal compression, it was advanced to the cecum where cecal markings were clearly identified. There was noted to be a good prep. Upon withdrawal of the scope, mucosal surfaces were carefully examined. There were no mass lesions or polyps. No significant diverticulosis. Within the mid sigmoid, there was noted to be a patchy area of inflammation that was biopsied with cold biopsy forceps with good hemostasis. There was no ulceration. The scope was retroflexed in the anal canal. There was no significant hemorrhoidal disease. The scope was then withdrawn. The patient tolerated procedure well, was sent to recovery room in good condition. Follow up screening colonoscopy should be at age 46, but may change based on the pathology results. CC: Dav Ellis M.D. [place]
--- OUTSIDE RECORDS SUMMARY | 2025-10-06 08:02 | XMS_ITS | Clinical Summary ---
Author Organization [facility] Healthcare Address [address] [place] [address] Care Team Providers Care Shader And Toner Name Role Phone Unavailable Primary Care Provider Unavailabl e Social History Tobacco UseTypesPacks/DayYears UsedDateSmoking Tobacco: Never Assessed CommentsUnknownSex and Gender InformationValueDate RecordedSex Assigned at Not on fileLegal IabUtemki35/15/2023 7:04 PM EDTGender IdentityNot on fileSexual OrientationNot on file Plan of Treatment Not on file
--- OUTSIDE RECORDS SUMMARY | 2025-10-06 08:02 | XMS_ITS | Clinical Summary ---
Author Organization [employer] [facility] tem Address [id number] [place] [address] Care Team Providers Care Chip Person Name Role Phone Dav Ellis MD Primary Care Provider [phone] Allergies No known active allergies Medications No [...] drink = 0.6 oz pure alcohol)socialPHQ-2AnswerDate RecordedTotal [id number] UlifezckYmqyssamcJfwvegb59/12/2019EmploymentAnswerDate RecordedEmploymentUnknown 04/15/2019Hunger ScreeningAnswerDate RecordedWithin the past 12 months we worried whether our food would run out before we got money to buy more.Never True12/15/2024Within the past 12 months the food we bought just didn't last and we didn't have money to get more.Never True12/15/2024CommentsUnknownSex and Gender InformationValueDate RecordedSex Assigned at BirthNot on fileLegal HdsEyewsr50/06/2015 12:11 PM EDTGender IdentityNot on fileSexual OrientationNot on file Last Filed Vital Signs Vital SignReadingTime TakenCommentsBlood Cypvlzmz951/8812/15/2024 2:12 PM EST Pulse--Temperature--Respiratory Rate--Oxygen Saturation--Inhaled Oxygen Concentration--Jvsqwo535.5 kg (241 lb 6.4 oz)12/15/2024 2:12 PM YVKDbvcwe406.3 cm (5' 9 )12/15/2024 2:12 PM ESTBody Mass Index35.65012/15/2024 2:12 PM EST Plan of Treatment Health MaintenanceDue DateLast DoneCommentsDTaP,Tdap and Td Vaccines (1 - Tdap) 2010Influenza Mvoxwla8807/05/2025dult BMI Follow Up Plan11/18/2025 11/18/2024Depression Biipajxiy52dult BMI Nbtavkaux35/11/2026 12/15/2024Tobacco Ubmbajrvp86Pap Smear, 11/18/2024 Medical Devices Not on file Procedures Procedure NamePriorityDate/TimeAssociated DiagnosisCommentsHIGH RISK HPV W/ROSIE Ftpsvhm5111/18/2024 4:46 AM EST Cervical smear, as part of routine gynecological examination from Last 3 Months or Most Recently Relevant to Health Maintenance Results * High risk HPV w/rosie (11/18/2024 4:46 AM EST)ComponentValueRef RangeTest MethodAnalysis TimePerformed AtPathologist SignatureHpv specimen typeThinPrep 11/19/2024 4:47 AM [facility] 16NegativeNegative^Negative 11/20/2024 3:52 PM [facility] 18Negative Negative^Sglbywlc48/17/2025 3:52 PM [facility] LABOther high risk hpvNegativeNegative^Irjwfuwc16/17/2025 3:52 PM [facility] LABComment: HPV types 31,33,35,39,45,52,56,58,59,66 and 68 DNA were undetectable. Specimen (Source)Anatomical Location / LateralityCollection Method / Volume Collection TimeReceived OurdYTVBH76/15/2025 4:46 AM EST11/19/2024 4:47 AM EST Narrative Authorizing ProviderResult TypeResult StatusLilly Francis MAIL SERVICE COORDINATOR-CNPLAB BLOOD ORDERABLESFinal ResultPerforming OrganizationAddressCity/State/ZIP CodePhone Number [facility] [address], [place] [address] [facility] [address], [address] [place] [address] from Last 3 Months or Most Recently Relevant to Health Maintenance Insurance Care Teams Team MemberRelationshipSpecialtyStart DateEnd Dav Ellis MD [address] [place] [address] PCP - GeneralFamily Medicine12/02/24
--- OUTSIDE RECORDS SUMMARY | 2025-10-06 08:02 | XMS_ITS | CCD ---
Author Organization [facility] Care Team Providers Care It Service Delivery Manager Name Role Phone Lisandra Parada Unavailable Caterina [...] DR ESTEVEZ Admitting Unavailable HOY ., DR ESTVEEZ Attending Unavailable HOY ., DR ESTEVEZ Primary [...] Harrell Unavailable Herb Andrade Primary Care Physician [phone] Unavailable Primary Care Provider Unavailbrennon e LILLY FRANCIS Attending Unavailable LILLY FRANCIS Referring Unavailable HERB ANDRADE Primary Care Unavailable LILLY FRANCIS Referring Unavailable Herb Andrade MD Primary Care Provider [phone] LILLY FRANCIS Attending Unavailable DIONNE CR Attending Unavailable HERB ANDRADE Primary Care Unavailable Slade BUSTAMANTE Attending Unavailable Allergies Allergy ClassificationReported Allergen(s)Allergy TypeDate of OnsetReaction(s) Facility (1 source)Iodine (And Iodine Containting Drugs)Drug allergy (disorder)11-04-2005 [facility] Repository (3 sources)Contrast media; Translations: [Contrast Dye]Propensity to adverse reactions to substanceWeal (disorder)General Surgery [place] (1 source)No Known Medication Allergies; Translations: [No Known Medication Allergies]Propensity to adverse reactions (disorder)[facility] RepositoryNEGATED: Highlighted row has been ruled out! (1 source)Drug allergyGenecleveland clinic [facility] [place]: Highlighted row has been ruled out! (1 source)Drug allergyFishUniversity Hospitals [facility] [place] Medications Current Medications MedicationDrug Class(es)DatesSig (Normalized)Sig (Original)[id number] 200 actuat albuterol 0.09 mg/actuat metered dose inhaler (1 source)beta2-Adrenergic AgonistStart: 35-14-1437kupc 2 puff(s) by inhalation four times daily as neededAlbuterol Sulfate HFA 108 (90 Base) MCG/ACT 2 puffs Inhalation qid prn Sep, Activeazithromycin 250 mg oral tablet (1 source)Macrolide AntimicrobialStart: 57-05-5958Nwsupwwua 250 MG 2 tablet on the first day, then 1 tablet daily for 4 days Orally Once a day for 5 day(s) Sep, Activedextromethorphan hydrobromide 15 mg / guaiFENesin 400 mg / pseudoephedrine hydrochloride 60 mg oraltablet (1 source)alpha-Adrenergic Agonist, Uncompetitive Z-gvzmsb-K-aspartate Receptor Antagonist, Sigma-1 AgonistStart: 56-14-8296Hqegujj DM 60-15-400 MG 1 tablet at 4 hour intervals as needed Orally Four times a day for 3 days Aug, Activeomeprazole 40 mg delayed release oral capsule (1 source)Proton Pump InhibitorOmeprazole 40 MG Oral for 15 Days Active ondansetron 4 mg oral tablet (1 source)Serotonin-3 Receptor AntagonistStart: 38-51-1120gljd 1 tablet by mouth every eight hoursondansetron 4 mg Tab 4 mg = 1 tab(s), Oral, q8hr, Refills(s) 0 Start Date: 10/16/23 Status: OrderedpredniSONE 20 mg oral tablet (1 source)Start: 65-89-1652emsy 1 tablet by mouth every twelve hourspredniSONE 20 MG 1 tablet Orally bid for 5 day(s) Sep, Activerimegepant 75 mg disintegrating oral tablet (1 source)Start: 66-45-1472tjmu 1 tablet under the tongue onceNurtec ODT [...] 75 mg oral capsule (4 sources)Nitrofuran AntibacterialStart: 52-46-1848rvuy 1 capsule by mouth every twelve hoursMacrobid 100 MG 1 cap(s) orally bid for 7 days Jun, Not-Takingpantoprazole (3 sources)Proton Pump InhibitorPantoprazole Sodium Not-TakingPantoprazole Sodium Active Problems Active Problems Problem ClassificationProblemDateDocumented DateEpisodic/ChronicAbdominal pain (11 sources)Epigastric pain; Translations: [Epigastric pain]Onset: 10-16-2023 EpisodicAnxiety disorders (1 source)Bsbwkys91-73-2127SbwulcmIpsdsav tract disease (1 source)Biliary yhcwqdgg55-74-6335ZimaepmjFvjebqp dysrhythmias (2 sources)Paroxysmal supraventricular kzfzilswohs49-18-7598HnfwjbxYslufnxtrc and other anemia (1 source)Iron deficiency anemia due to blood loss; Translations: [Iron deficiency anemia secondary to blood loss (chronic)]83-82-4946YfzhfxuCfuyszwnzn and other anemia (1 source)Iron deficiency anemia secondary to blood loss (chronic); Translations: [Iron deficiency anemia secondary to blood loss (chronic)]Onset: 37-26-0219HdraqmwQqwynwtxty and other anemia (4 sources)Iron deficiency anemia, unspecified; Translations: [IRON DEFICIENCY ANEMIA UNSPECIFIED]Onset: 09-15-8769XseitspuGnmswpowyo and other anemia (2 sources)Iron deficiency froter79-80-7202IhxzjshmPbraarkhix disorders (5 sources)Gastroesophageal reflux disease without esophagitis; Translations: [Gastro-esophageal reflux disease without esophagitis]Onset: 38-64-7901Zttfkin Headache; including migraine (1 source)Tsyielqr37-58-7715ZrmhgerYiuutyr and fatigue (1 source)Other fatigue; Translations: [OTHER FATIGUE]Onset: 17-26-9776Vumflyin Menstrual disorders (4 sources)Menorrhagia; Translations: [Excessive and frequent menstruation with regular cycle]Onset: 102478-05-8076DdyhhadQnluo gastrointestinal disorders (3 sources)Dysphagia; Translations: [Dysphagia, unspecified]Onset: 10-16-2023 EpisodicOther gastrointestinal disorders (1 source)Change in bowel habitOnset: 43-05-7736PegqirpsHcbzn gastrointestinal disorders (1 source)Altered bowel -69-4612HigdzbabGdgbp nutritional; endocrine; and metabolic disorders (2 sources)Body mass index 30+ - ocevzcb11-67-9404ZxzcgosIzrrb nutritional; endocrine; and metabolic disorders (1 source)Bjucspb00-88-1005NpclgnwUblxk nutritional; endocrine; and metabolic disorders (2 sources)Obese class II; Translations: [Obesity, Class II, BMI 35-39.9]Onset: 870523-76-0745FwkrwbpQpdgz nutritional; endocrine; and metabolic disorders (1 source)Obesity caused by energy zdbyrkhfw51-81-8549DpoispwYmrhu screening for suspected conditions (not mental disorders or infectious disease) (5 sources)Other specified abnormal findings of blood chemistry; Translations: [OTH SPEC ABNORMAL FINDINGS BLDCHEM]Onset: 85-57-1755FmosnkziQwigo upper respiratory infections (1 source)Acute upper respiratory infection, unspecifiedEpisodicResidual codes; unclassified (1 source)Family history of other diseases of the digestive systemOnset: 01-30-3641DlplcqwzQndxgxip codes; unclassified (1 source)FH: Ulcerative rhhsihi24-50-5350JewqmcvmWfyfzkxki and history of mental health and substance abuse codes (3 sources)Personal history of nicotine dependence; Translations: [Standardized adult depression screening tool completed ]Onset: 986783-02-8059Bdjdnwnd Unclassified (1 source)ConsultOnset: 79-18-1104Fksyukhrjfej (1 source)Gynecologic ExamOnset: 11-18-2024 Past or Other Problems Problem ClassificationProblemDateDocumented DateEpisodic/ChronicCardiac dysrhythmias (4 sources)Palpitations; Translations: [PALPITATIONS]Onset: 21-11-5772Dftwnfod Immunizations and screening for infectious disease (2 sources)Contact with and (suspected) exposure to other viral communicable diseasesOnset: 10-01-2021 Resolved: 16-53-3506TcpywvhwRqjt disorders (2 sources)Mood disordersOnset: Nausea and vomiting (1 source)Nausea; Translations: [NAUSEA]Onset: 17-78-2338HklgztbcPswbqjsarthm (1 source)Contact with and (suspected) exposure to covid-19 Z20.822Unclassified (2 sources)Onset: Viral infection (1 source)COVID-19Onset: 10-01-2021 Resolved: 10-01-2021 Results Test NameValueInterpretationReference RangeFacilityAmbulatory Visit Summaryon 17-39-1422Ihmknixczi Visit SummaryAmbulatory Visit Summary YUKI LITTLE :1990 [...] signed up for this yet, please contact [employer] at [phone] to get signed up today. Language Information Language assistance services are available as needed. [facility] HospitalUS PELVIC WITH TRANSVAGINALon 68-57-4837MX PELVIC WITH TRANSVAGINALUS PELVIC WITH TRANSVAGINAL US [...] Finalized by Xavier Caceres on 12/02/2024 3:09 PMNSumma Health Cytologyon 42-42-8808QiaclthpJtunxcSqnNsdqff [facility] HospitalComment on above: Result Comment: [facility] [address] [place] [address] Gynecologic Cytology Consultation Patient Name:YUKI LITTLE:1990 (Age: 34)Gender:FTaken:11/18/2024Reported:11/30/2024Physician(s):Lilly Francis, MAY- HOOP ROLLS OPERATOR ([phone])Copy To: Rec. #:[id number]: #[id number] Final Cytologic Interpretation ThinPrep Pap Test (Cervical): Satisfactory for evaluation. A transformation zone component is present. NEGATIVE FOR INTRAEPITHELIAL LESION OR MALIGNANCY. [facility]/11/30/2024 Interpretation performed at [facility], [address] [place] [address], License number: [id number]. 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 The Pap test is primarily effective for the diagnosis and prevention of squamous cell carcinoma. Regular screening iscritical for prevention. ThinPrep liquid-based slides, which meet the Surface Supply Breathing Apparatus criteria for automated screening, have been screened by the ThinPrep Imaging System (as of 07/21/07) along with an additional manual rescreening by a mechanical laboratory technician and, if indicated, by a pathologist.HIGH RISK HPV W/GENOon 29-80-2068HZU 31+33+35+39+45+51+52+56+58+59+66+68 DNA FRANCES+probe Ql (Cvx)HPV SPECIMEN TYPE ThinPrep HPV 16 Negative (qualifier value) HPV 18 Negative (qualifier value) OTHER HIGH RISK HPV Negative (qualifier value) HPV types 31,33,35,39,45,52,56,58,59,66 and 68 DNA were undetectable.NormalProMedica Little Company Of Mary HospitalComment on above: Performed By: #### [id number] #### [facility] ([id number]) [address], [place] [address] [facility] ([id number]) [address], [address] [place], [place] [address]Ha Panel InformationOrdered By: Talia Avila on 73-35-9958Zmods Strep (POC)Wilson HealthCOVID + FLU Quick Testingon 69-18-5253RYQK-CoV-2 (COVID-19) RNA FRANCES+probe Ql (Unsp spec)NegativeNoCortex internetstores Other COVID + FLU Quick TestingNegativeNoEntertainment Cruises Other US SINGLE QUAD RT UPPERon 57-88-1323IT SINGLE QUAD RT UPPEREXAMINATION: US SINGLE QUAD [...] Electronically authenticated by: CHAUNCEY DUKE Date: 2023-03-19 09:[address] [place], [place] [address]F 14(COMP METB)on 05-12-2027Ciauefk [Mass/Vol]3.7 g/dLNormal 3.4-5.0[facility] HospitalComment on above:Performed By: #### DDIM #### [facility] [address] [address] [address] Belgica LlanesAlbumin/Globulin [Mass ratio]0.9 {ratio}NormalThe [facility] HospitalComment on above:Performed By: #### DDIM #### [facility] [address] [address] [address] Belgica CorbettP [Catalytic activity/Vol]83 U/WBeewhl96-601Nvk [facility] HospitalComment on above:Performed By: #### DDIM #### [facility] [address] [place] [address] Dr. Belgica CorbettT [Catalytic activity/Vol]25 U/PTpahpy70-02Dwf [facility] HospitalComment on above:Performed By: #### DDIM #### [facility] [address] [place] [address] Dr. Belgica Kruger gap [Moles/Vol]15.1 mmol/LNormalThe [facility] Comment on above:Performed By: #### DDIM #### [facility] [address] [place] [address] Dr. Belgica LlanesAST [Catalytic activity/Vol]17 U/IKrzgbp03-93Crs [facility] HospitalComment on above:Performed By: #### DDIM #### [facility] [address] [place] [address] Dr. Belgica LlanesBilirubin [Mass/Vol]0.3 mg/dLNormal0.2-1.0The [facility] Comment on above:Performed By: #### DDIM #### [facility] [address] [place] [address] Dr. Belgica LlanesCalcium [Mass/Vol]9.0 mg/dLNormal8.5-10.1The [facility] Comment on above:Performed By: #### DDIM #### [facility] [address] [address] [address] Belgica LlanesChloride [Moles/Vol]106 mmol/MBvnrmw25-545Wmd [facility] Comment on above:Performed By: #### DDIM #### [facility] [address] [address] [address] Belgica LlanesCO2 [Moles/Vol]26.2 mmol/ZMiwqzw03.0-32.0The [facility] Comment on above:Performed By: #### DDIM #### [facility] [address] [place] [address] Dr. Belgica LlanesCreatinine [Mass/Vol]0.77 mg/dLNormal0.55-1.02The [facility] HospitalComment on above:Performed By: #### DDIM #### [facility] [address] [place] [address] Dr. Belgica LepeGFR-AF CITIZEN [place]>60Normal>=60The [facility] HospitalComment on above:Performed By: #### DDIM #### [facility] [address] [place] [address] Dr. Belgica LepeGFR-NON AF CITIZEN OF [place]>60Normal>=60[facility] HospitalComment on above:Performed By: #### DDIM #### [facility] [address] [place] [address] Dr. Belgica LlanesGlobulin (S) [Mass/Vol]4.0 g/dLNormalThe [facility] HospitalComment on above:Performed By: #### DDIM #### [facility] [address] [address] [address] Belgica LlanesGlucose [Mass/Vol]97 mg/lRRgkxol54-890Ggt [facility] Comment on above:Performed By: #### DDIM #### [facility] [address] [place] [address] Dr. Belgica LlanesPotassium [Moles/Vol]4.3 mmol/LNormal3.5-5.1The [facility] Comment on above:Performed By: #### DDIM #### [facility] [address] [place] [address] Dr. Belgica LlanesProtein [Mass/Vol]7.7 g/dLNormal6.4-8.2[facility] Comment on above:Performed By: #### DDIM #### [facility] [address] [place] [address] Dr. Belgica Chandradium [Moles/Vol]143 mmol/VTlwmlj271-511Nxp [facility] Comment on above:Performed By: #### DDIM #### [facility] [address] [place] [address] Dr. Belgica LlanesUrea nitrogen [Mass/Vol]10.0 mg/dLNormal7.0-18.0The [facility] HospitalComment on above:Performed By: #### DDIM #### [facility] [address] [place] [address] Dr. Belgica Watson nitrogen/Creatinine [Mass ratio]13.0 mg/mgNormalThe [facility] HospitalComment on above:Performed By: #### DDIM #### [facility] [address] [place] [address] Dr. Belgica Edward AUTO DIFFon 26-19-7954UEIY #0.0 103/ulNormal0.0-0.1The [facility] HospitalComment on above:Performed By: #### CBC #### [facility] [address] [place] [address] Dr. Belgica LlanesBasophils/100 WBC (Bld)0.5 %Normal0.2-2.0[facility] Comment on above:Performed By: #### CBC #### [facility] [address] [place] [address] Dr. Belgica Calabrese #0.1 103/ulNormal0.0-0.7The [facility] HospitalComment on above: Performed By: #### CBC #### [facility] [address] [place] [address] Dr. Belgica Lepeosinophils/100 WBC (Bld)2.0 %Normal0.9-7.0The [facility] Comment on above:Performed By: #### CBC #### [facility] [address] [place] [address] Dr. Belgica Leperythrocyte distribution width (RBC) [Ratio]12.4 %Hkicbo76.0-15.0 The [facility] HospitalComment on above:Performed By: #### CBC #### [facility] [address] [place] [address] Dr. Belgica LlanesHematocrit (Bld) [Volume fraction]42.3 %Ovsnmu79.0-48.0The [facility] HospitalComment on above:Performed By: #### CBC #### [facility] [address] [place] [address] Dr. Belgica LlanesHemoglobin (Bld) [Mass/Vol]13.7 g/hBBciaph93.0-16.0The [facility] HospitalComment on above:Performed By: #### CBC #### [facility] [address] [place] [address] Dr. Belgica Stanley #0.01 10e3/ulNormal0.00-0.03The [facility] HospitalComment on above:Performed By: #### CBC #### [facility] [address] [place] [address] Dr. Belgica Stanley %0.2 %Normal0.0-0.5The [facility] on above: Performed By: #### CBC #### [facility] [address] [place] [address] Dr. Belgica ReedH #2.2 103/ulNormal1.2-3.8The [facility] HospitalComment on above:Performed By: #### CBC #### [facility] [address] [place] [address] Dr. Belgica Washingtonmphocytes/100 WBC (Bld)37.1 %Oehqnj17.5-60.0The [facility] on above:Performed By: #### CBC #### [facility] [address] [place] [address] Dr. Belgica DamonUAL DIFF REQNONormalThe [facility] HospitalComment on above: Performed By: #### CBC #### [facility] [address] [address] [address] Belgica Rapp (RBC) [Entitic mass]28.3 vhLcccwb49.7-34.0The [facility] HospitalComment on above:Performed By: #### CBC #### [facility] [address] [address] [address] Belgica Rapp (RBC) [Mass/Vol]32.4 g/mALlwucj64.9-35.2The [place] HospitalComment on above:Performed By: #### CBC #### [facility] [address] [place] [address] Dr. Belgica Rapp (RBC) [Entitic vol]87.4 xHXiijkc00.0-99.0The [facility] HospitalComment on above:Performed By: #### CBC #### [facility] [address] [place] [address] Dr. Belgica Galdamez #0.5 103/ulNormal0.3-0.8The [facility] HospitalComment on above:Performed By: #### CBC #### [facility] [address] [address] [address] Belgica Escotoocytes/100 WBC (Bld)8.3 %Normal1.7-12.0The [facility] Comment on above:Performed By: #### CBC #### [facility] [address] [place] [address] Dr. Belgica Adams #3.1 103/ulNormal1.4-6.5The [facility] HospitalComment on above:Performed By: #### CBC #### [facility] [address] [place] [address] Dr. Belgica Ivyutrophils/100 WBC (Bld)51.9 %Caitbv60.0-75.0The [facility] HospitalComment on above:Performed By: #### CBC #### [facility] [address] [place] [address] Dr. Belgica Walterlet mean volume (Bld) [Entitic vol]8.6 fLCritically low 9.5-13.5The [facility] HospitalComment on above:Performed By: #### CBC #### [facility] [address] [place] [address] Dr. Belgica LlanesPLT313 103/hiBdxzdf257-816Joz [facility] HospitalComment on above: Performed By: #### CBC #### [facility] [address] [place] [address] Dr. Belgica LlanesRBC4.84 106/ulNormal4.20-5.40The [facility] HospitalComment on above:Performed By: #### CBC #### [facility] [address] [place] [address] Dr. Belgica LlanesWBC6.0 103/ulNormal4.0-11.0The [facility] HospitalComment on above: Performed By: #### CBC #### [facility] [address] [place] [address] Dr. Belgica LlanesFERRITINon 88-18-3103Rnzencde [Mass/Vol]400.0 ng/mLCritically high6.2-137.0The [facility] HospitalComment on above:Performed By: #### IRON, FERR #### [facility] [address] [place] [address] Dr. Belgica LlanesIROYodit 53-86-6343Hinf [Mass/Vol]61.0 ug/vGEuhpdr88.0-170.0The [facility] on above:Performed By: #### DDIM #### [facility] [address] [place] [address] Dr. Belgica LlanesUS PELVIS AND TRANSVAGon 96-81-0906LT PELVIS AND TRANSVAG EXAMINATION: US PELVIS AND [...] Electronically authenticated by: CHAUNCEY DUKE Date: 2022-12-26 09:34[facility] AUTO DIFFon 77-29-8960GNUP #0.0 103/ulNormal0.0-0.1[facility] HospitalComment on above:Performed By: #### CBC #### [facility] [address] [place] [address] Dr. Belgica LlanesBasophils/100 WBC (Bld)0.5 %Normal0.2-2.0[facility] Comment on above:Performed By: #### CBC #### [facility] [address] [address] [address] Belgica Calabrese #0.1 103/ulNormal0.0-0.7The [facility] HospitalComment on above: Performed By: #### CBC #### [facility] [address] [address] [address] Belgica Lepeosinophils/100 WBC (Bld)1.4 %Normal0.9-7.0[facility] Comment on above:Performed By: #### CBC #### [facility] [address] [address] [address] Belgica Leperythrocyte distribution width (RBC) [Ratio]14.0 %Xiqpic21.0-15.0 The [facility] HospitalComment on above:Performed By: #### CBC #### [facility] [address] [place] [address] Dr. Belgica LlanesHematocrit (Bld) [Volume fraction]35.7 %Critically low36.0-48.0 The [facility] HospitalComment on above:Result Comment: Previously reported as: 30.8 On 10/08/2022 18:42 By [id number] By: #### CBC #### [facility] [address] [place] [address] Dr. Belgica LlanesHemoglobin (Bld) [Mass/Vol]12.0 g/uRPgxlhk51.0-16.0The [facility] HospitalComment on above:Result Comment: Previously reported as: 12.1 On 10/08/2022 18:42 By [id number] By: #### CBC #### [facility] [address] [place] [address] Dr. Belgica Stanley #0.01 10e3/ulNormal0.00-0.03The [facility] HospitalComment on above:Performed By: #### CBC #### [facility] [address] [place] [address] Dr. Belgica Stanley %0.2 %Normal0.0-0.5The [facility] HospitalComment on above: Performed By: #### CBC #### [facility] [address] [place] [address] Dr. Belgica Wells #1.7 103/ulNormal1.2-3.8The [facility] HospitalComment on above:Performed By: #### CBC #### [facility] [address] [place] [address] Dr. Belgica Reedhocytes/100 WBC (Bld)29.6 %Zwwpia20.5-60.0The [facility] HospitalComment on above:Performed By: #### CBC #### [facility] [address] [place] [address] Dr. Belgica DamonUAL DIFF REQNONormalThe [facility] HospitalComment on above: Performed By: #### CBC #### [facility] [address] [place] [address] Dr. Belgica Smalls (RBC) [Entitic mass]28.1 qvUfnuln39.7-34.0The [facility] HospitalComment on above:Result Comment: Previously reported as: 34.8 On 10/08/2022 18:42 By [id number] By: #### CBC #### [facility] [address] [place] [address] Dr. Belgica Rapp (RBC) [Mass/Vol]33.6 g/qRSinhgx32.9-35.2The [facility] HospitalComment on above:Result Comment: Previously reported as: 39.3 On 10/08/2022 18:42 By [id number] By: #### CBC #### [facility] [address] [place] [address] Dr. Belgica Rapp (RBC) [Entitic vol]83.6 gIIdbesm86.0-99.0The [facility] HospitalComment on above:Result Comment: Previously reported as: 88.5 On 10/08/2022 18:42 By [id number] By: #### CBC #### [facility] [address] [place] [address] Dr. Belgica Galdamez #0.4 103/ulNormal0.3-0.8The [facility] HospitalComment on above:Performed By: #### CBC #### [facility] [address] [place] [address] Dr. Belgica Escotoocytes/100 WBC (Bld)7.2 %Normal1.7-12.0The [facility] Comment on above:Performed By: #### CBC #### [facility] [address] [place] [address] Dr. Belgica Adams #3.5 103/ulNormal1.4-6.5The [facility] HospitalComment on above:Performed By: #### CBC #### [facility] [address] [place] [address] Dr. Belgica Ivyutrophils/100 WBC (Bld)61.1 %Ztpbat63.0-75.0The [facility] HospitalComment on above:Performed By: #### CBC #### [facility] [address] [place] [address] Dr. Belgica Sigala mean volume (Bld) [Entitic vol]9.0 fLCritically low 9.5-13.5The [facility] HospitalComment on above:Performed By: #### CBC #### [facility] [address] [place] [address] Dr. Belgica LlanesPLT323 103/jrDgrsxl108-738Vfi [facility] on above: Performed By: #### CBC #### [facility] [address] [place] [address] Dr. Belgica LlanesRBC3.48 106/ulCritically low4.20-5.40The [facility] on above:Performed By: #### CBC #### [facility] [address] [place] [address] Dr. Belgica LlanesWBC5.7 103/ulNormal4.0-11.0The [facility] on above: Performed By: #### CBC #### [facility] [address] [place] [address] Dr. Belgica Hill 10-11-7930B-DIMER0.21 mg/L FEUNormal<=0.59The [facility] on above:Performed By: #### DDIM #### [facility] [address] [place] [address] Dr. Belgica Jerome [facility] on above:Result Comment: Increases in D-Dimer concentration [...] generalized hospitalization. Performed By: #### DDIM #### [facility] [address] [place] [address] Dr. Belgica Moreno 62-52-0453Neux [Mass/Vol]19.0 ug/dLCritically low 50.0-170.0The [facility] on above:Performed By: #### IRON #### [facility] [address] [place] [address] Dr. Belgica Adrian HCG QUALon 84-99-1236RDIKBSFVU, QUALNegativeNormalNEGATIVE The [facility] HospitalComment on above:Performed By: #### DDIM #### [facility] [address] [address] [address] Belgica García 14(COMP METB)on 06-93-3840Qrzjcxc [Mass/Vol]3.7 g/dLNormal 3.4-5.0The [facility] HospitalComment on above:Performed By: #### CMP, HSTROPN, TSH #### [facility] [address] [address] [address] Belgica LlanesAlbumin/Globulin [Mass ratio]1.0 {ratio}NormalThe [facility] HospitalComment on above:Performed By: #### CMP, HSTROPN, TSH #### [facility] [address] [place] [address] Dr. Belgica CorbettP [Catalytic activity/Vol]87 U/UJbxlvn83-443Ygf [facility] HospitalComment on above:Performed By: #### CMP, HSTROPN, TSH #### [facility] [address] [address] [address] Belgica Gann [Catalytic activity/Vol]9 U/LCritically jeq76-43Lks [facility] HospitalComment on above:Performed By: #### CMP, HSTROPN, TSH #### [facility] [address] [address] [address] Belgica Kruger gap [Moles/Vol]10.8 mmol/LNormalThe [facility] on above:Performed By: #### CMP, HSTROPN, TSH #### [facility] [address] [address] [address] Belgica LlanesAST [Catalytic activity/Vol]11 U/LCritically hjj47-04Xje [facility] HospitalComment on above:Performed By: #### CMP, HSTROPN, TSH #### [facility] [address] [address] [address] Belgica LlanesBilirubin [Mass/Vol]0.2 mg/dLNormal0.2-1.0The [facility] Comment on above:Performed By: #### CMP, HSTROPN, TSH #### [facility] [address] [place] [address] Dr. Belgica LlanesCalcium [Mass/Vol]8.6 mg/dLNormal8.5-10.1The [facility] Comment on above:Performed By: #### CMP, HSTROPN, TSH #### [facility] [address] [place] [address] Dr. Belgica LlanesChloride [Moles/Vol]103 mmol/AWqgnqk27-782Scv [facility] Comment on above:Performed By: #### CMP, HSTROPN, TSH #### [facility] [address] [place] [address] Dr. Belgica LlaensCO2 [Moles/Vol]26.7 mmol/DXlswnr46.0-32.0The [facility] Comment on above:Performed By: #### CMP, HSTROPN, TSH #### [facility] [address] [place] [address] Dr. Belgica LlanesCreatinine [Mass/Vol]0.85 mg/dLNormal0.55-1.02The [facility] HospitalComment on above:Performed By: #### CMP, HSTROPN, TSH #### [facility] [address] [place] [address] Dr. Belgica LepeGFR-AF CITIZEN [place]>60Normal>=60The [facility] HospitalComment on above:Performed By: #### CMP, HSTROPN, TSH #### [facility] [address] [place] [address] Dr. Belgica LepeGFR-NON AF CITIZEN [place]>60Normal>=60The [facility] HospitalComment on above:Performed By: #### CMP, HSTROPN, TSH #### [facility] [address] [place] [address] Dr. Belgica LlanesGlobulin (S) [Mass/Vol]3.8 g/dLNormalThe [facility] HospitalComment on above:Performed By: #### CMP, HSTROPN, TSH #### [facility] [address] [address] [address] Belgica LlanesGlucose [Mass/Vol]97 mg/eSMtmvsj10-470Cmu [facility] Comment on above:Performed By: #### CMP, HSTROPN, TSH #### [facility] [address] [address] [address] Belgica LlanesPotassium [Moles/Vol]3.5 mmol/LNormal3.5-5.1The [facility] Comment on above:Performed By: #### CMP, HSTROPN, TSH #### [facility] [address] [address] [address] Belgica LlanesProtein [Mass/Vol]7.5 g/dLNormal6.4-8.2The [facility] Comment on above:Performed By: #### CMP, HSTROPN, TSH #### [facility] [address] [place] [address] Dr. Belgica LlanesSodium [Moles/Vol]137 mmol/OGhgsrq195-350YnuChillicothe Hospital Comment on above:Performed By: #### CMP, HSTROPN, TSH #### [facility] [address] [place] [address] Dr. Belgica LlanesUrea nitrogen [Mass/Vol]9.0 mg/dLNormal7.0-18.0[facility] HospitalComment on above:Performed By: #### CMP, HSTROPN, TSH #### [facility] [address] [place] [address] Dr. Belgica Watson nitrogen/Creatinine [Mass ratio]10.6 mg/mgNormalThe [facility] HospitalComment on above:Performed By: #### CMP, HSTROPN, TSH #### [facility] [address] [place] [address] Dr. Belgica Barrett, HIGH SENSITIVITYon 50-89-7924HNDXSG4.5 pg/mLNormal 4.0-51.3The [facility] HospitalComment on above:Result Comment: CUT-OFF POINTS HAVE BEEN ESTABLISHED BASED ON THE FOURTH UNIVERSAL DEFINITIONS OF MYOCARDIAL INFARCTION. THE UPPER REFERENCE LIMIT (URL) OF TROPONIN, DEFINED THE 99TH PERCENTILE OF cTnI DISTRIBUTION IN A REFERENCE POPULATION, HAS BEEN CONFIRMED THE DECISION THRESHOLD FOR WA DIAGNOSIS.Performed By: #### CALDERON LOPEZ, TSH #### [facility] [address] [address] [address] Blegica Cabrera 80-05-9458OVC0.228 uIU/mLNormal0.358-3.740The [facility] HospitalComment on above:Performed By: #### CMP HSTROPErick, TSH #### [facility] [address] [address] [address] Belgica LlanesXR CHEST 1 Von [id number] CHEST 1 VEXAM: XR CHEST 1 V, [...] Electronically authenticated by: MARITZA GORE Date: 2022-10-08 19:41[facility] HospitalCOVID Quick Testingon [id number] internetstores Other INSULINon 74-94-2801Tkiyonr72.1 uIU/mLNormal2.6-24.9 The [facility] HospitalComment on above:Performed By: #### DDIM #### [facility] [address] [place] [address] Dr. Belgica LlanesCBC AUTO DIFFon [id number] #0.0 103/ulNormal0.0-0.1The [facility] HospitalComment on above:Performed By: #### CBC #### [facility] [address] [place] [address] Dr. Belgica LlanesBasophils/100 WBC (Bld)0.6 %Normal0.2-2.0The [facility] Comment on above:Performed By: #### CBC #### [facility] [address] [place] [address] Dr. Belgica Calabrese #0.1 103/ulNormal0.0-0.7The [facility] HospitalComment on above: Performed By: #### CBC #### [facility] [address] [place] [address] Dr. Belgica Lepeosinophils/100 WBC (Bld)2.7 %Normal0.9-7.0The [facility] Comment on above:Performed By: #### CBC #### [facility] [address] [place] [address] Dr. Belgica Leperythrocyte distribution width (RBC) [Ratio]14.1 %Bbfjdv31.0-15.0 [facility] HospitalComment on above:Performed By: #### CBC #### [facility] [address] [place] [address] Dr. Belgica LlanesHematocrit (Bld) [Volume fraction]33.7 %Critically low36.0-48.0 [facility] HospitalComment on above:Performed By: #### CBC #### [facility] [address] [place] [address] Dr. Belgica LlanesHemoglobin (Bld) [Mass/Vol]12.4 g/oGTyxwpm74.0-16.0The [facility] HospitalComment on above:Performed By: #### CBC #### [facility] [address] [place] [address] Dr. Belgica Stanley #0.01 10e3/ulNormal0.00-0.03The [facility] HospitalComment on above:Performed By: #### CBC #### [facility] [address] [place] [address] Dr. Belgica Stanley %0.3 %Normal0.0-0.5The [facility] HospitalComment on above: Performed By: #### CBC #### [facility] [address] [place] [address] Dr. Belgica Wells #1.3 103/ulNormal1.2-3.8The [facility] HospitalComment on above:Performed By: #### CBC #### [facility] [address] [place] [address] Dr. Belgica Washingtonmphocytes/100 WBC (Bld)37.8 %Ssrdgb82.5-60.0The [facility] HospitalComment on above:Performed By: #### CBC #### [facility] [address] [place] [address] Dr. Belgica Carrizales DIFF REQNONormalThe [facility] HospitalComment on above: Performed By: #### CBC #### [facility] [address] [place] [address] Dr. Belgica Rapp (RBC) [Entitic mass]32.6 kyGpaupr24.7-34.0The [facility] HospitalComment on above:Performed By: #### CBC #### [facility] [address] [place] [address] Dr. Belgica Rapp (RBC) [Mass/Vol]36.8 g/dLCritically high29.9-35.2The [facility] HospitalComment on above:Performed By: #### CBC #### [facility] [address] [place] [address] Dr. Belgica Aguirre (RBC) [Entitic vol]88.7 nMFvozcu22.0-99.0The [facility] HospitalComment on above:Performed By: #### CBC #### [facility] [address] [place] [address] Dr. Belgica Galdamez #0.2 103/ulCritically low0.3-0.8The [facility] HospitalComment on above:Performed By: #### CBC #### [facility] [address] [place] [address] Dr. Blegica Escotoocytes/100 WBC (Bld)6.3 %Normal1.7-12.0The [facility] Comment on above:Performed By: #### CBC #### [facility] [address] [place] [address] Dr. Belgica Adams #1.7 103/ulNormal1.4-6.5The [facility] HospitalComment on above:Performed By: #### CBC #### [facility] [address] [place] [address] Dr. Belgica Ivyutrophils/100 WBC (Bld)52.3 %Ewfcwq03.0-75.0The [facility] HospitalComment on above:Performed By: #### CBC #### [facility] [address] [place] [address] Dr. Belgica Walterlet mean volume (Bld) [Entitic vol]9.1 fLCritically low 9.5-13.5The [facility] HospitalComment on above:Performed By: #### CBC #### [facility] [address] [place] [address] Dr. Belgica VasquezT272 103/iwGmmsai572-756Jbi [facility] HospitalComment on above: Performed By: #### CBC #### [facility] [address] [place] [address] Dr. Belgica LlanesRBC3.80 106/ulCritically low4.20-5.40The [facility] HospitalComment on above:Performed By: #### CBC #### [facility] [address] [place] [address] Dr. Belgica LlanesWBC3.3 103/ulCritically low4.0-11.0The [facility] HospitalComment on above:Performed By: #### CBC #### [facility] [address] [place] [address] Dr. Belgica Dela Cruz THYROXINE INDEX T7on 38-40-5967BKZ6.38Xqqgjl1.30-4.50The [facility] HospitalComment on above:Performed By: #### DDIM #### [facility] [address] [place] [address] Dr. Belgica LlanesT3U35.0 %Njrnzx37.0-39.0The [facility] HospitalComment on above: Performed By: #### DDIM #### [facility] [address] [place] [address] Dr. Belgica LlanesT4 [Mass/Vol]6.70 ug/dLNormal4.80-13.90[facility] Comment on above:Performed By: #### DDIM #### [facility] [address] [place] [address] Dr. Belgica LlanesGLYCOHEMOGLOBIN A1Con 56-43-1124PDQ RECOMMENDATIONSEE BELOWNoDelaware County HospitalComment on above:Result Comment: ADA RECOMMENDED LIMIT 4.0 - 6.0 ADA THERAPEUTIC TARGET < 7.0 ACTION SUGGESTED > 7.0Performed By: #### A1C #### [facility] [address] [place] [address] Dr. Belgica LlanesGlucose [Mass/Vol]94 mg/sSUdgzau09-868PjyChillicothe Hospital Comment on above:Performed By: #### A1C #### [facility] [address] [place] [address] Dr. Belgica LlanesPerformed By: #### DDIM #### [facility] [address] [place] [address] Dr. Belgica LlanesHbA1c (Bld) [Mass fraction]4.9 %Normal4.5-6.2[facility] HospitalComment on above:Performed By: #### A1C #### [facility] [address] [place] [address] Dr. Belgica Moreno 10-82-5602Oqxo [Mass/Vol]69.0 ug/yZGkkcwe91.0-170.0[facility] HospitalComment on above:Performed By: #### DDIM #### [facility] [address] [place] [address] Dr. Belgica LlanesLIPID PROFILEon 60-29-7604AIGM-HDL RATIO NORMSEE [facility] HospitalComment on above:Result Comment: 3.3 - 4.4 LOW RISK 4.4 - 7.1 AVERAGE RISK 7.1 - 11.0 MODERATE RISK >11.0 HIGH RISKPerformed By: #### DDIM #### [facility] [address] [place] [address] Dr. Belgica LlanesCholesterol [Mass/Vol]151 mg/dLNormal<=200The [facility] Comment on above:Performed By: #### DDIM #### [facility] [address] [address] [address] Belgica LlanesCholesterol in HDL [Mass/Vol]49 mg/vFMttlsn38-68RiaChillicothe HospitalComment on above:Performed By: #### DDIM #### [facility] [address] [address] [address] Belgica LlanesCholesterol in LDL [Mass/Vol]84.8 mg/dLClermont County HospitalComment on above:Performed By: #### DDIM #### [facility] [address] [address] [address] Belgica Cruz.total/Cholesterol in HDL [Mass ratio]3.1 {ratio} NormalChillicothe HospitalComment on above:Performed By: #### DDIM #### [facility] [address] [address] [address] Belgica lAlen NORMAL> or = 60 mg/dl - LOW CARDIOVASCULAR RISK <40 mg/dl - HIGH CARDIOVASCULAR RISKClermont County HospitalComment on above:Performed By: #### DDIM #### [facility] [address] [address] [address] Belgica Dowling CALC NORMALSEE BELOWClermont County HospitalComment on above:Result Comment: <100 mg/dl OPTIMAL 100 - 129 mg/dl NEAR OR ABOVE OPTIMAL 130 - 159 mg/dl BORDERLINE HIGH 160 - 189 mg/dl HIGH >190 mg/dl VERY HIGH Performed By: #### DDIM #### [facility] [address] [address] [address] Belgica LlanesTriglyceride [Mass/Vol]86 mg/dLNormal<=150[facility] Comment on above:Performed By: #### DDIM #### [facility] [address] [address] [address] Belgica NaranjoLDL CALC17.2 mg/dLNoSelect Medical [facility] Rehabilitation Hospital - DublinComment on above: Performed By: #### DDIM #### [facility] [address] [address] [address] Belgica CurryF 14(COMP METB)on 74-76-0528Tinlmrs [Mass/Vol]3.6 g/dLNormal 3.4-5.0The [facility] HospitalComment on above:Performed By: #### DDIM #### [facility] [address] [place] [address] Dr. Belgica LlanesAlbumin/Globulin [Mass ratio]1.0 {ratio}NormalThe [facility] HospitalComment on above:Performed By: #### DDIM #### [facility] [address] [place] [address] Dr. Belgica CorbettP [Catalytic activity/Vol]71 U/WBbajsn53-288Nap [facility] HospitalComment on above:Performed By: #### DDIM #### [facility] [address] [place] [address] Dr. Belgica CorbettT [Catalytic activity/Vol]23 U/CQnfjff55-30Fxv [facility] HospitalComment on above:Performed By: #### DDIM #### [facility] [address] [place] [address] Dr. Belgica Kruger gap [Moles/Vol]10.8 mmol/LNormalThe [facility] Comment on above:Performed By: #### DDIM #### [facility] [address] [place] [address] Dr. Belgica LlanesAST [Catalytic activity/Vol]12 U/LCritically wjc80-49Hgm [facility] HospitalComment on above:Performed By: #### DDIM #### [facility] [address] [place] [address] Dr. Belgica LlanesBilirubin [Mass/Vol]0.4 mg/dLNormal0.2-1.0The [facility] Comment on above:Performed By: #### DDIM #### [facility] [address] [place] [address] Dr. Belgica LlanesCalcium [Mass/Vol]8.7 mg/dLNormal8.5-10.1The [facility] Comment on above:Performed By: #### DDIM #### [facility] [address] [address] [address] Belgica LlanesChloride [Moles/Vol]106 mmol/IUmoygu25-253Coc [facility] Comment on above:Performed By: #### DDIM #### [facility] [address] [address] [address] Belgica LlanesCO2 [Moles/Vol]29.2 mmol/CNcbcdc68.0-32.0The [facility] Comment on above:Performed By: #### DDIM #### [facility] [address] [address] [address] Belgica LlanesCreatinine [Mass/Vol]0.80 mg/dLNormal0.55-1.02The [facility] HospitalComment on above:Performed By: #### DDIM #### [facility] [address] [address] [address] Belgica LepeGFR-AF CITIZEN OF [place]>60Normal>=60The [facility] HospitalComment on above:Performed By: #### DDIM #### [facility] [address] [address] [address] Belgica LepeGFR-NON AF CITIZEN OF [place]>60Normal>=60The [facility] HospitalComment on above:Performed By: #### DDIM #### [facility] [address] [address] [address] Belgica LlanesGlobulin (S) [Mass/Vol]3.7 g/dLNormalThe [facility] HospitalComment on above:Performed By: #### DDIM #### [facility] [address] [address] [address] Belgica LlanesPotassium [Moles/Vol]4.0 mmol/LNormal3.5-5.1The [facility] Comment on above:Performed By: #### DDIM #### [facility] [address] [address] [address] Belgica LlanesProtein [Mass/Vol]7.3 g/dLNormal6.4-8.2The [facility] Comment on above:Performed By: #### DDIM #### [facility] [address] [place], [place] [address] Dr[address] Belgica LlanesSodium [Moles/Vol]142 mmol/CYkmtwx639-876Rhh [facility] Comment on above:Performed By: #### DDIM #### [facility] [address] [address] [address] Belgica LlanesUrea nitrogen [Mass/Vol]8.0 mg/dLNormal7.0-18.0The [facility] HospitalComment on above:Performed By: #### DDIM #### [facility] [address] [address] [address] Belgica Watson nitrogen/Creatinine [Mass ratio]10.0 mg/mgNoalThe [facility] HospitalComment on above:Performed By: #### DDIM #### [facility] [address] [address] [address] Belgica Cabrera 41-27-8097AST9.206 uIU/mLNormal0.358-3.740The [facility] HospitalComment on above:Performed By: #### DDIM #### [facility] [address] [address] [address] Belgica Bowles Quick Testingon 43-10-6495RhsoutTjhbhosiNlplt internetstores Other Quick Fluon 42-54-6346ODHFF Ab CF (S) [Titer]Negative Ramsey internetstores Other FLUBV Ab CF (S) [Titer]NegativeOdessa Memorial Healthcare Center TheCommentor Other COVID Quick Testingon 21-01-7226BtzsaqIiyumcrtJqffv internetstores Other Urine Cultureon 40-11-8900Ugfhlyih identified Cx Nom (U)Reason for Exam Dysuria Urine Reason for Exam: Dysuria : Urine <9,000 colonies/ml mixed bacterial skin contaminants 2 Days PERFORMED BY: [address] [place] [address] PATHOLOGIST EMBEDDED SOFTWARE ENGINEER JUS PORRAS M.D.[facility] HospitalComment on above: Performed By: #### CUU #### [facility] [address] Vital Signs Date TimeVital SignValuePerforming YbwuutxyfYvvuiwwk90-78-3618 14:12-0500Body .3 cmTanya Cr DO Work Phone: [facility] Uixfwn21-17-7989 14:12-0500Body mass index (BMI) [Ratio]35.65 kg/u5Yviot Cr DO Work Phone: [facility] Cintgx94-41-7743 14:12-0500Body jofsgj415.5 kgTanya Cr DO Work Phone: [facility] Uoodqc02-98-4786 14:12-0500Diastolic blood qhytfjlb62 mm[Hg]Dionne Cr DO Work Phone: [facility] Bqmjjc96-21-0469 14:12-0500Systolic blood mm[Hg]Dionne Cr DO Work Phone: [facility] Qctuar92-50-9438 13:28-0500Body pdxoaw757.3 cmLisa Krotzer LIBRARY CIRCULATION ASSISTANT-HOOP ROLLS OPERATOR Work Phone: [facility] HospitalVMIX Media Nbzpps24-69-3452 13:28-0500Body mass index (BMI) [Ratio]35 kg/m2Lisa Krotzer LIBRARY CIRCULATION ASSISTANT-HOOP ROLLS OPERATOR Work Phone: [facility] HospitalV[facility] Media Zbnmlw18-71-9183 13:28-0500Body dsqijh749.5 kgLisa Krotzer LIBRARY CIRCULATION ASSISTANT-HOOP ROLLS OPERATOR Work Phone: [facility] HospitalUsingMiles01-15-2025 13:28-0500Diastolic blood vqxebvaw90 mm[Hg]Lilly Krotzer LIBRARY CIRCULATION ASSISTANT-HOOP ROLLS OPERATOR Work Phone: [facility] HospitalV[facility] Media Xgqcnl02-66-5184 13:28-0500Systolic blood ignptlox145 mm[Hg]Lilly Krotzer LIBRARY CIRCULATION ASSISTANT-HOOP ROLLS OPERATOR Work Phone: [facility] HospitalVMIX Media Otiipo88-37-1263 14:10-0400Body zffkmu544.26 cm[facility]05-04-2024 14:10-0400Body mass index (BMI) [Ratio]33 kg/y0SldmcmcupWilson Health05-04-2024 14:10-0400Body gfpybivmlck36.6 [degF][facility]05-04-2024 14:10-0400Body auypue815.32 kgWilson Health05-04-2024 14:10-0400Heart rate56 /[facility]05-04-2024 14:10-0400Respiratory rate18 /[facility]05-04-2024 14:10-4845DlO2% (BldA) [Mass fraction]98 %[facility] 10-16-2023 13:20-0500Blood Pressure LocationMichael NILL [facility]12-13-2023 13:20-0500Diastolic blood ajcphnbq37 mm[Hg]Slade NILL [facility] Surgery Qshamoxm14-40-1946 13:20-0500Heart rate 72 /minMichael NILL [facility]12-13-2023 13:20-0500 Respiratory rate15 /minMichael NILL [facility]12-13-2023 13:20-0500Systolic blood tofvoojb184 mm[Hg]Slade NILL [facility]10-23-2023 16:15-0400Body pgofvd534.26 cmJakobkaitlynn Barnhartmariely Other [employer] Other 10-23-2023 16:15-0400Body mass index (BMI) [Ratio] 33.52 kg/k2Aauzsd Rutmariely Other [employer] Other 10-23-2023 16:15-0400Body fxerjrquxuj59.4 [degF]Smiley Harrell Other [employer] Other 10-23-2023 16:15-0400Body exlnyc134.97 kgSmiley Harrell Other [employer] Other 10-23-2023 16:15-0400Diastolic blood wefkeoga84 mm[Hg] Smiley Harrell Other [employer] Other 10-23-2023 16:15-0400Respiratory rate18 /minSmiley Harrell Other [employer] Other 10-23-2023 16:15-3434LkK1% (BldA) [Mass fraction]97 % Smiley Harrell Other [employer] Other 10-23-2023 16:15-0400Systolic blood mm[Hg] Smiley Harrell Other [employer] Other 01-09-2022 14:00-0500Body reaulj602.26 cmAmber Ginty Other [employer] Other 01-09-2022 14:00-0500Body mass index (BMI) [Ratio] 30.71 kg/w8Nphlb Ginty Other [employer] Other 01-09-2022 14:00-0500Body qxfivfxgcvx18.1 [degF]Caterina Collinsntcontreras Other [employer] Other 01-09-2022 14:00-0500Body ssejpw70.35 kgAmber Ginty Other [facility] internetstores Other 01-09-2022 14:00-0500Respiratory rate20 /minCaterina Collinsarjuncontreras Other [employer]Enter[employer] Other 01-09-2022 14:00-8747GrV9% (BldA) [Mass fraction]99 % Caterina Alicia Other [facility] [employer] Other 11-28-2021 11:00-0500Body aaiqet962.26 cmPamela Karma Other [employer] Other 11-28-2021 11:00-0500Body mass index (BMI) [Ratio] 30.27 kg/a3Xqqbwimary Parada Other [employer] Other 11-28-2021 11:00-0500Body vjkhobsygqd82.9 [degF]Lisandra Parada Other [employer] Other 11-28-2021 11:00-0500Body xynlgr23.99 kgPamary Parada Other [employer] Other 11-28-2021 11:00-0500Respiratory rate18 /minLisandra Parada Other [employer] Other 11-28-2021 11:00-6718VhE0% (BldA) [Mass fraction]99 % Lisandra Leimond Other [employer] Other Encounters Encounter DateEncounter TypeCare ProviderFacilityStart: 09-07-2025 End: 31-15-4658grmbonlgubFseoeol R NILLFacility:JOHN Murillotart: 09-07-2025 End: 98-90-1987Kblmydy encounter procedureMichael R NILL [phone]-UpzmjLouis [facility] [place] Start: 12-15-2024 End: 15-01-0882Zjejku outpatient visit 15 minutesDionne Megan Cr DO Work Phone: [facility] Obstetrics/GynecologyComment on above:Menorrhagia with regular cycle (Primary Dx); Dysmenorrhea; Iron deficiency anemia due to chronic blood lossStart: 12-15-2024 End: 76-01-7958zbsyvoiekjDIIUL L [facility] Ambulatory PPGStart: 12-02-2024 End: 85-74-4045sblncjyvklHDGU [facility] HOSPITALTRACEYGreen Cross Hospitaltart: 11-18-2024 End: 95-08-4716Fmuofba preventive medicine new pt age 18-39yrsLilly Francis LIBRARY CIRCULATION ASSISTANT-HOOP ROLLS OPERATOR Work Phone: [facility] Obstetrics/GynecologyComment on above:Well woman exam with routine gynecological exam (Primary Dx); Standardized adult depression screening tool completed; Pelvic pain; Cervical smear, as part of routine gynecological examinationStart: 11-18-2024 End: 20-97-4466Ibukoph encounter procedureLilly Francis LIBRARY CIRCULATION ASSISTANT-HOOP ROLLS OPERATOR Work Phone: [facility] Work Phone: Start: 11-18-2024 End: 53-55-5375yougjfkihiURAQ M KROTZERSelect Medical [facility] Ambulatory PPGStart: 11-18-2024 End: 52-40-7351Akwovpjvd for gynecological examination (general) (routine) without abnormal findingsLilly Francis LIBRARY CIRCULATION ASSISTANT-HOOP ROLLS OPERATOR Work Phone: [facility] access hospitaltart: 11-18-2024 End: 72-51-4471mahlsehejtAQRR M KROTZERGreen Cross Hospitaltart: 07-04-0559Ntjufltqh for gynecological examination (general) (routine) without abnormal findingsLILLY FRANCISProMedica Baldwin Park Hospitaltart: 03-07-2024 End: 26-97-5738nnxzmvvhyyKplsxdecoAvita Health System Work Phone: Start: 03-07-2024 End: 52-87-6936Sgygdgb encounter procedureAtrium Health Phys[facility] Work Phone: Start: 10-16-2023 End: 22-99-5438Xlrzjyl encounter procedureMichael R NILL General Surgery Nill/Said [place] Start: 08-26-2023 End: 95-38-2770zcnlbzyqusBoflzs Ruttino Other [facility] internetstores Other Start: 09-81-4754Wkrhqu outpatient visit 15 minutes Smiley Martin [facility] ClydeStart: 03-19-2023 End: 37-16-8225mkqatxrmwbGA HERB HOY .Facility:P8Cfhhl: 02-27-2023 End: 49-36-6015wfigigdoffWU HERB HOY .Facility:T8Eaovb: 02-25-2023 End: 10-03-7132uthpeaphduXL HERB HOY .Facility:R1Owdrq: 12-25-2022 End: 84-41-7720ybyznjnlueLZ HERB HOY .Facility:Z7Mgtqf: 12-25-2022 End: 30-68-1464etbgsyzpnqTC HERB HOY .Facility:T7Kfsmh: 10-08-2022 End: 00-49-0294xgvhlycvcoPR ANA DAVIESLEONARDO .Facility:C2Gicpb: 07-06-2022 ambulatoryDR HERB HOY .Facility:K0Hbbhp: 06-22-2022 End: 98-05-9519xxbxqjvqwoMdtgbdqfz Breault Other [facility] internetstores Other Start: 38-70-9141Mdinahkqo for other preprocedural examinationSlevi Arguello [facility] ClydeStart: 41-82-5849Ssdrrr outpatient visit 5 minutesStephankaitlynn JonesaultFPG Urgent Care ClydeStart: 14-44-6938Txghsfybx for general adult medical examination without abnormal findingsDR HERB HOY .[facility] Hospitaltart: 05-31-2022 End: 06-62-6452pfuhdqdezpRM HERB HOY .Facility:L3Hyxop: 05-31-2022 End: 55-42-6855Cvhmankxs for general adult medical examination without abnormal findingsDR HERB HOY .Facility:W8Tfgeb: 11-12-2021 End: 79-82-3103sxwjduthdsImrpo Karinanty Other noCortex internetstores Other Start: 86-30-3980Hvezpd outpatient visit 15 minutes Caterina GintyFPG Urgent Care ClydeStart: 10-01-2021 End: 91-04-5837fbnxzabikgKsziap Dymond Other [facility] internetstores Other Start: 31-16-3196Seluwi outpatient visit 15 minutes Lisandra DymondFPG [facility] Procedures DateProcedureProcedure DetailPerforming ClinicianStart: 24-56-0120Bydtx depression screening assessmentLisa Penny LIBRARY CIRCULATION ASSISTANT-HOOP ROLLS OPERATOR Work Phone: Start: 32-86-3201Kilwyupujnh observation [Identifier] in Cervix by Cyto Roberth Cr DO Work Phone: Start: 97-81-3619Twema Strep (POC)Start: 12-10-2023 EsophagogastroduodenoscopyMichael NILL AbdominoplastyMichael NILL Ligation of fallopian tubeMichael NILL Plan of Treatment DateCare ActivityDetailAuthorStart: 33-40-4798Kqzbmtdvp for malignant neoplasm of cervixPap SmearProPromedica Toledo Hospitalca Health SystemStart: 99-36-8802Socoknk Screening Tobacco ScreeningProOhiohealth Berger Hospital SystemStart: 46-55-8635Mlyxe BMI Follow Up PlanAdult BMI Follow Up PlanProOhiohealth Berger Hospital SystemStart: 39-80-3983Ymegf BMI ScreeningAdult BMI ScreeningProFirelands Regional Medical Center South Campustart: 51-71-7057Olrlazuais ScreeningDepression ScreeningProFirelands Regional Medical Center South Campustart: 94-61-6993Huejmzr ScreeningTobacco ScreeningProFirelands Regional Medical Center South Campustart: 12-15-2024 End: 85-70-8079Evrzgfo encounter uuqmrlcpe30/11/2025 2:00 PM EST Office Visit [facility] [address] [place] [address] Dionne Cr DO [address] [place] [address] [facility] Obstetrics/GynecologyStart: 11-18-2024 End: 13-59-5499Uudjyxdjpmtli procedure, preparation of smear, genital sourcePap Smear Pathology and Cytology Routine Cervical smear, as part of routine gynecological examination Expected: 11/18/2024 (Approximate), Expires: 11/18/2025[facility] HospitalComment on above:Expected: 11/18/2024 (Approximate), Expires: 11/18/2025Start: 11-18-2024 End: 81-88-1156GF Pelvis transabdominal and transvaginalUltrasound pelvic with transvaginal Imaging Routine Pelvic pain Expected: 11/18/2024, Expires: 11/18[facility] Work Phone: Comment on above:Expected: 11/18/2024, Expires: 11/18/2025Start: 85-96-4940Qoufnqqax vaccinationInfluenza VaccineProFirelands Regional Medical Center South Campustart: 92-83-4217Aygjaktqx for malignant neoplasm of cervixPap SmearProFirelands Regional Medical Center South Campustart: 27-34-3109LGrE,Tdap and Td Vaccines (1 - Tdap)DTaP,Tdap and Td Vaccines (1 - Tdap)[facility] SafetySkills [facility] End: 10-10-5695Klhr risk HPV w/genoHigh risk HPV w/charly Lab Routine Cervical smear, as part of routine gynecological examination 1 Occurrences starting 11/18/2024 until 11/18/2025ProOhiohealth Berger Hospital SystemComment on above:1 Occurrences starting 11/18/2024 until 11/18/2025 Immunizations Immunization DateImmunizationNotesCare ProviderFacilityNEGATED: Highlighted row has not occurred!24-76-4368javdgqocp virus vaccine, unspecified formulation Slade BUSTAMANTE General Surgery [place] Payers DatePayer CategoryPayerPolicy [id number] Cancer Center Man[facility] - [facility] Member Subscriber Plan / Payer (Effective 2024-Present) Name: MikiYuki ulrichne Relation to Subscriber: Self Name: Yuki Littlene Payer ID: [id number] (NAIC) Type: Not on file Address: [id number] [place] [id number] [id number] 2..1.244606.3.57[id number] 2..1.083850.3.57[id number] 2..1.837174.3.57[id number] 2..1.962867.3.57[id number] 2..1.690665.3.57[id number] 2..1.415287.3.57[id number] 2.16.840.1.290210.3.57[id number] 2.16.840.1.284421.3.579.[id number] 2.16.840.1.087374.3.579.[id number] 2.16.840.1.149395.3.57[id number] 2.16.840.1.552883.3.57[id number] 2.16.840.1.080137.3.57[id number] 2.16.840.1.420538.3.579.2.47508-67-4321OhopGallup Indian Medical [id number] 2.16.840.0.020763.56564246-45-9116Mkhc-[id number] Social History DateTypeDetailFacilityUnknown if ever smokedNocrittenton behavioral health internetstores Other Start: 11-18-2024 End: 48-02-8537Aji Assigned At [facility] CenterStart: 10-16-2023 End: 21-09-6487Iwpxycc smoking statusEx-smoker (finding)General Surgery [place] Tobacco smoking statusNeverGeneral Surgery BellevueStart: 74-18-0739Ckc Assigned At [facility] Centertart: 92-12-9808Issbpsh smoking status NHISNever smoked tobaccoProOhiohealth Berger Hospital SystemStart: 36-42-7269Khhdftm use and exposureSmokeless tobacco non-userWayne Hospital SystemStart: 11-18-2024 End: 64-98-8479Vyxqbebmr beverage intakeCurrent drinker of alcohol (finding) [facility] SystemStart: 11-18-2024 End: 17-26-8259Ickrdst of Social functionCleveland Clinic Marymount HospitalVMIX Media SystemStart: 64-84-5739Jikzvar CommentsocialProFirelands Regional Medical Center South Campustart: 74-53-8138Drv assigned at birthNot on fileBrattleboro Memorial HospitalFlypad SystemStart: 06-09-2015 End: 74-98-5450DbiFsnxxv (finding)[facility] SafetySkills SystemSexual Orientation [facility] General Surgery [place] Functional Status TzvdHxdwcxmjxaTskbkcEeyidtda39-16-9622Cownqviydy StatusN/AGeneral Surgery [place] Clinical Notes 10-01-2021 to 09-07-2025 Note Date & NztpXvtcFxguiynm48-11-0076 NoteGeneral Surgery Office/Clinic Note Chief Complaint consultation for cholelithiasis HPI Staff 34 year old female presents on consultation from Dr. Andrade for cholelithiasis. Presented to [place] ED 08/24 with complaint of epigastric pain [...] began 1 hour prior to presenting to [facility] ED; describes as pressure, stabbing, radiated [...] Daily, # 30 cap(s), Refills(s) 3, Pharmacy: [id number], 172.5, cm, 10/16/23 13:24:00 EST, Height/Length Dosing, [...] GERD Dysphagia Epigastric pa (more content not included)...[facility] CenterComment on above:Result Comment: Electronically Signed By: DIANNA NAVA, Slade Phelps\Date and Time Signed: 09/07/25 14:49 [id number] History of Present illness Narrative* Dionne Cr, [...] schedule a preoperative visit. documented in this encounterNorwalk [facility] Hospital01-[facility]-2025 History of Present illness Narrative* Lilly Francis APRN-PASHA - 11/18/2024 1:30 PM EST Annual Well Woman Visit 11/18/2024 Fan Little is a pleasant 34 y.o. female new patient who presents for annual asbestos remover exam. 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 Follow up as needed. Await pap. Discussed ASCCP screening guidelines. Discussed taking a multivitamin. Discussed Calcium and Vitamin D for prevention of osteoporosis. Discussed need for yearly mammogram after 40 yo. Discussed colon cancer screening recommendations to begin at 45 yo, patient to discuss with PCP. All questions answered. JOVITA Warner APRN-CNP Lisa M Krotzer, APRN-CNP 11/18/24 1401 documented in this [facility]01-15-2025 Miscellaneous Notes* Addendum Note - Julio Duran LPN - 11/18/2024 1:30 PM ESTAddended by: JULIO DURAN on: 11/18/2024 02:40 PM Modules accepted: Orders documented in this encounterNorwalk Memorial Hospital01-15-2025 Note* Addendum Note - Julio Duran LPN - 11/18/2024 1:30 PM ESTAddended by: JULIO DURAN on: 11/18/2024 02:40 PM Modules accepted: Orders [facility] SafetySkills Uvyrvj34-24-2990 Evaluation note* Encounter Date Diagnosis Assessment Notes [...] days, sooner with new or worsening symptoms. [employer] Other 08-19-2022 Evaluation note* Encounter Date Diagnosis Assessment Notes Treatment Notes Treatment Clinical Notes Jun, Preop testing (ICD-10 - Z01.818) [employer] Other 01-09-2022 Evaluation note* Encounter Date Diagnosis [...] Patient care instructions given in writting by [employer] Care At Home document [employer] Other 11-28-2021 Evaluation note* Encounter Date Diagnosis [...] care instructions given in writting by [facility] Care At Home document. [employer] Other Evaluation + Plan note No data available for this section General Surgery [place] Evaluation noteNo assessment information available [facility] Work Phone: Evaluation note* Diagnosis Well woman exam with routine gynecological exam- Primary Routine gynecological examination Standardized adult depression screening tool completed Pelvic pain Cervical smear, as part of routine gynecological examination Screening for malignant neoplasm of the cervix [facility] encounter [facility] System[facility]* Diagnosis Menorrhagia with regular cycle- Primary Dysmenorrhea Iron deficiency anemia due to chronic blood loss Iron deficiency anemia secondary to blood loss (chronic) documented in this encounter [facility] SystemHistory general Narrative - Reported* Type Description Date Medical History migraine headache Surgical Historytubal ligation [facility] TheCommentor Other History general Narrative - Reported* Type Description Date Medical History migraine headache Medical HistoryGERD (gastroesophageal reflux disease)Medical HistoryIron deficiencySurgical Historytubal ligation [facility] TheComment[employer] Other Hospital Discharge instructions No data available for this section General Surgery [place] Instructions* Attachments The following attachments cannot be sent through Care Everywhere. * Endometrial Ablation (Rwandan) documented in this encounterWayne Hospital SystemInstructions* Attachments The following attachments cannot be sent through Care Everywhere. * Endometrial ablation (Rwandan) documented in this encounterNorwalk Memorial HospitalProgress note No data available for this section General Surgery [place] Summary Purpose Family History No Family History [...] section and content) DATE CREATED AUTHOR 11/27/2021 [facility] DATE CREATED AUTHOR AUTHOR'S ORGANIZ ATION 03/20/2023 [facility] DATE CREATED AUTHOR AUTHOR'S ORGANIZ ATION 12/04/2024 [facility] DATE CREATED AUTHOR AUTHOR'S ORGANIZ ATION 12/17/2024 [facility] DATE CREATED AUTHOR AUTHOR'S ORGANIZ ATION 09/09/2025 [facility] REASON FOR VISIT (unrecogniz ed section and [...] DateEnd Date Herb Andrade MD [address] [id number] PCP - GeneralFamily Medicine12/02/24 Goals (unrecognized section [...] BE BASED ON THE PRIMARY CLINICAL RECORDS. [facility]. provides no warranty or guarantee of the accuracy or completeness of information in this document.
[2025-10-06 08:08] VITALS: BP 112/96; PULSE 112; TEMP 36.3; O2SAT 97; BMI 38.2
[2025-10-06 09:54] VITALS: BP 135/88; PULSE 84; TEMP 37.1; O2SAT 100
[2025-10-06 10:09] VITALS: BP 132/71; PULSE 74; O2SAT 100
[2025-10-06 10:24] VITALS: BP 130/74; PULSE 79; O2SAT 99
== END 2025-10-06 10:24 | disposition home or self-care (01) ==
LOC: SURGOUT 07:59
PROVIDERS: Anesthesiology; PCP Family Medicine; Visit Provider Surgery
PROC: (CPT 00813; principal; 2025-10-06 08:55)
DX: R10.13 Epigastric pain (principal); R10.11 Right upper quadrant pain; R19.4 Change in bowel habit; K21.9 Gastro-esophageal reflux disease without esophagitis; K29.70 Gastritis, unspecified, without bleeding; K52.9 Noninfective gastroenteritis and colitis, unspecified; Z87.891 Personal history of nicotine dependence; Z83.79 Family history of other diseases of the digestive system; Z98.51 Tubal ligation status; R13.10 Dysphagia, unspecified; Z86.16 Personal history of COVID-19
CPT/HCPCS: 00813; 43239; 45380; 36415; 84703; 88305; J2704